=== PATIENT | female | born 1945 | race Caucasian/White ===

== ENCOUNTER 2018-04-29 13:23 | Outpatient (CLI) | payer MEDICARE, MEDICAID, SELFPAY ==
--- NOTE | 2018-04-29 08:54 | DI.RAD_ITS ---
SYMPTOM/DIAGNOSIS: RIGHT HIP PAIN PELVIS AND RIGHT HIP: The hip joint spaces are well maintained. There is minimal acetabular spurring bilaterally. IMPRESSION: Mild degenerative changes.
== END 2018-04-29 13:43 ==
PROVIDERS: PCP Family Medicine; Visit Provider Emergency Medicine
DX: M25.551 Pain in right hip (principal); M16.11 Unilateral primary osteoarthritis, right hip
CPT/HCPCS: 73502

== ENCOUNTER 2018-06-04 21:56 | Emergency (ER) | payer MEDICARE, MEDICAID, SELFPAY ==
[2018-06-04 22:07] VITALS: BP 153/61; PULSE 68; RESP 20; TEMP 36.7; O2SAT 98
--- NOTE | 2018-06-04 22:29 | ED.GENADUL_ITS ---
Discharge Plan Disposition Patient Disposition: HOME Condition: Stable Discharge Details Chief Complaint: Fever Clinical Impression: Sinusitis, URI (upper respiratory infection) Primary Care Provider: Terrie Burroughs ED Provider: Ameya Mcadams Home Meds and New Rx's Prescriptions: New doxycycline hyclate 100 mg capsule 100 mg PO BID 7 Days Qty: 14 RF: 0 benzonatate [Tessalon Perles] 100 mg capsule 100 mg PO QID PRN (Reason: cough) Qty: 20 RF: 0 Continued cholecalciferol (vitamin D3) 1,000 unit capsule 1,000 unit PO DAILY RF: 0 multivitamin [One Daily] 1 EACH tablet 1 ea PO DAILY RF: 0 acetaminophen [Tylenol] 325 MG tablet 325 mg PO PRN RF: 0 vitamin B complex [B-Complex] 1 EACH tablet 1 ea PO DAILY RF: 0 cholestyramine (with sugar) [Questran] 378 GM powder 1 tbs PO DAILY Qty: 1 RF: 3 Replens 6.7 GM gel 6.7 gm VG 3 times per week Qty: 1 RF: 3 ProAir HFA 8.5 GM HFA aerosol inhaler 1 - 2 puff Inhalation QID PRNQty: 1 RF: 4 amlodipine [Norvasc] 5 MG tablet 5 mg PO DAILY RF: 0 Remicade 100 MG recon soln 500 mg IV Q 8 WEEKS Qty: 1 RF: 0 cyanocobalamin (vitamin B-12) 1,000 MCG/1 ML solution 1,000 mcg IJ QMONTH Qty: 1 RF: 0 estradiol [Estrace] 42.5 GM cream 1 g VG twice a week Qty: 1 RF: 4 Dexilant 30 MG capsule,biphase delayed releas 60 mg PO every other day Qty: 60 RF: 0 Discharge Instructions Instructions: Sinusitis (ED), Upper Respiratory Infection (ED) Additional Instructions: During illness get plenty of rest and stay well-hydrated. Follow-up with your primary care provider as needed for reassessment if not improving or return to the emergency department for any new or significant worsening of your symptoms. Please take antibiotic for the full 7 days. Referrals: Terrie Burroughs MD [Primary Care Provider] - (As needed for reassessment/if not improving) Medical Decision Making Patient presenting the emergency department for cold-like symptoms for the past 10 days. Patient states that her had similar symptoms but over the past 24 hours she has developed a fever, worsening cough, worsening sinus pressure. Patient does state that she has had some associated sore throat and plugged ears . Patient states her biggest complaint is the sinus pressure and discomfort. Physical exam shows clear lung hobson, normal vital signs with no tachycardia, non-hypoxic, and no fever noted the emergency department. Patient does state that she has been intermittently taking acetaminophen as needed for discomfort. Patient does have both frontal and maxillary sinus tenderness to palpation and some anterior cervical lymphadenopathy that is mild. Otherwise physical exam is unremarkable. Patient is nontoxic and shows no acute signs of distress so I feel that outpatient treatment for sinusitis secondary to upper respiratory tract infection is warranted. Given patient's allergies patient placed up on doxycycline for 7 days along with Tessalon Perles for cough suppressant informed to follow-up with primary care for reassessment or return for any new or worsening symptoms. After discussion of diagnosis and plan of care patient has no further needs, questions, or concerns and states clear understanding to return to the emergency department for any worsening symptoms. HPI General Mode of arrival: ambulatory . Date/Time Provider Initiated Documentation: 06/04/18 22:09 . Limitations to Documentation: no limitations . Information obtained by: patient, RN notes reviewed and old records reviewed . History of Present Illness 72 year old F presents to the emergency department with the chief complaint of Cold symptoms, sinus pressure, described as moderate, with intensity rated at 6. Quality is described as aching, and is localized to the head (sinus ). Patient started experiencing this day(s) (10) and it has been constant. No relieving factors improve symptom(s), No exacerbating factors reported . Patient did receive the following treatments prior to arrival, other (Acetaminophen) Related Data Home Medications Medication Instructions Recorded Confirmed acetaminophen [Tylenol] 325 mg PO PRN 12/10/12 06/04/18 multivitamin [One Daily] 1 ea PO DAILY 12/10/12 06/04/18 vitamin B complex [B-Complex] 1 ea PO DAILY 12/10/12 06/04/18 cholestyramine (with sugar) 1 tbs PO DAILY #1 bottle 02/02/13 06/04/18 [Questran] Replens 6.7 gm VG 3 times per week #1 tube 12/23/14 06/04/18 ProAir HFA 1 - 2 puff INHALATION QID PRN #1 09/03/16 06/04/18 inhaler amlodipine [Norvasc] 5 mg PO DAILY 07/23/17 06/04/18 Remicade 500 mg IV Q 8 WEEKS #1 vial 11/14/17 06/04/18 cyanocobalamin (vitamin B-12) 1,000 mcg IJ QMONTH #1 vial 11/14/17 06/04/18 estradiol [Estrace] 1 g VG twice a week #1 tube 11/16/17 06/04/18 Dexilant 60 mg PO every other day #60 12/09/17 06/04/18 tab-cap cholecalciferol (vitamin D3) 1,000 1,000 unit PO DAILY 04/29/18 06/04/18 unit capsule benzonatate [Tessalon Perles] 100 mg PO QID PRN #20 cap 06/04/18 doxycycline hyclate 100 mg PO BID 7 Days #14 cap 06/04/18 Previous Rx's Medication Instructions Recorded Remicade 500 mg IV Q 8 WEEKS #1 vial 11/14/17 estradiol [Estrace] 1 g VG twice a week #1 tube 11/16/17 Dexilant 60 mg PO every other day #60 12/09/17 tab-cap benzonatate [Tessalon Perles] 100 mg PO QID PRN #20 cap 06/04/18 doxycycline hyclate 100 mg PO BID 7 Days #14 cap 06/04/18 Allergies Allergy/AdvReac Type Severity Reaction Status Date / Time latex Allergy Severe SKIN RASH; Verified 06/04/18 22:17 BLISTERS metronidazole [From Flagyl] Allergy Intermediate RASH Verified 06/04/18 22:17 esomeprazole Allergy Unknown UPPER BODY Verified 06/04/18 22:17 RASH Iodinated Contrast- Oral and Allergy Unknown Verified 06/04/18 22:17 IV Dye Sulfa (Sulfonamide Allergy Unknown Verified 06/04/18 22:17 Antibiotics) clindamycin AdvReac Severe GI UPSET Verified 06/04/18 22:17 azithromycin AdvReac Intermediate gi intol. Verified 06/04/18 22:17 diarrhea goas bloating cramps potassium clavulanate AdvReac Intermediate diarrhea Verified 06/04/18 22:17 [From Augmentin] omeprazole AdvReac Mild NAUSEA Verified 06/04/18 22:17 General Stated Complaint: Fever CAPRICE: 3 Review of Systems Constitutional Denies chills, Reports fatigue, Reports fever(s) and Reports malaise ENT Reports otalgia, Reports hoarseness, Reports nasal congestion, Reports nasal discharge, Reports post nasal drip, Reports sinus pain, Reports sinus pressure and Reports sore throat Cardiovascular Denies dyspnea Respiratory Denies change in phlegm color, Denies chest congestion, Reports cough, Denies excessive phlegm production and Denies dyspnea Gastrointestinal Denies abdominal pain, Denies diarrhea, Denies nausea and Denies vomiting Musculoskeletal Denies joint swelling Integumentary/Breasts Denies rash Endocrine Reports fatigue [facility] Medical History Osteoporosis (Acute) Osteoarthritis (Acute) Odynophagia (Acute 02/16/16) History of tobacco use (Acute) Herpes zoster (Resolved) Crohn's disease (Acute) Conductive hearing loss in right ear (Acute 02/16/16) Cervicalgia (Acute 02/16/16) Surgical History Hemicolectomy Ligation of fallopian tube MASTOIDECTOMY Tonsillectomy and adenoidectomy Family History Mother Diabetes Stroke Father Myocardial infarction Sister No problems noted. Sister Crohn's disease Sister No problems noted. Grandfather No problems noted. Grandfather No problems noted. Grandmother No problems noted. Grandmother No problems noted. Social History Smoking/Tobacco Use Status: Former Tobacco Use Exam Const General: cooperative, comfortable and no acute distress Orientation: alert, awake and oriented x3 HENMT Head: normal to inspection Ears: hearing grossly normal bilaterally and TM's normal bilaterally Face and sinus: sinus tenderness frontal and maxillary Mouth: oral mucosae normal, lip normal, tongue normal and moist mucous membranes Throat: posterior oropharynx normal, tonsils normal and uvula midline Eyes General: appearance normal, both eyes and all related structures Conjunctivae: conjunctivae normal Sclera: sclerae normal Neck Neck: normal visual inspection, full ROM, meningismus present, lymphadenopathy (Mild anterior cervical) and no JVD Resp Effort & Inspection: normal respiratory effort, able to speak in complete sentences, no audible wheezes, cough Quality of cough: dry and not labored Auscultation: clear to auscultation bilaterally Cardio Rate: regular rate and not tachycardic Rhythm: regular rhythm Heart Sounds: S1 normal and S2 normal Skin General skin exam: no rashes or lesions noted and dry skin Rashes: no rashes Neuro General: alert, awake, oriented x3 and gait normal Course Vital Signs Temperature 36.7 C 06/04/18 22:07 Pulse 68 06/04/18 22:07 Respiratory Rate 20 06/04/18 22:07 Blood Pressure 153/61 H 06/04/18 22:07 Pulse Oximetry 98 06/04/18 22:07 Temperature 36.7 C 06/04/18 22:07 Temperature Source Temporal Artery Scan 06/04/18 22:07 Pulse 68 06/04/18 22:07 Respiratory Rate 20 06/04/18 22:07 Respiratory Effort 06/04/18 22:07 Blood Pressure 153/61 H 06/04/18 22:07 Pulse Oximetry 98 06/04/18 22:07 Oxygen Delivery Method Room Air 06/04/18 22:07 Oxygen Flow Rate 0 06/04/18 22:07 Pain Level 6 06/04/18 22:07
[2018-06-04] MEDS: Benzonatate 100 MG CAP PO (22:32)
[2018-06-04] MEDS: Doxycycline Hyclate 100 MG CAP PO (22:32)
[2018-06-04 22:53] VITALS: BP 141/70; PULSE 63; RESP 18; O2SAT 97
== END 2018-06-04 22:51 | disposition home or self-care (01) ==
PROVIDERS: Emergency Provider Nurse Practitioner Family; PCP Family Medicine
DX: J01.90 Acute sinusitis, unspecified (principal); J06.9 Acute upper respiratory infection, unspecified
CPT/HCPCS: 99283

== ENCOUNTER 2018-07-03 00:50 | Outpatient (CLI) | payer MEDICARE, MEDICAID, SELFPAY ==
--- NOTE | 2018-07-03 15:00 | DI.MAMMO_ITS ---
SYMPTOM/DIAGNOSIS: SCREENING, Z12.31 MAMMOGRAMS: Mammograms were interpreted according to the usual protocol including computer analysis with CAD system, tomosynthesis and C view imaging. Comparison is made with prior examinations. Breast density, Category C. No suspicious masses or microcalcifications are seen. There is no definite evidence of malignancy. IMPRESSION: Negative mammogram. Routine screening is recommended. Category 1. MQSA ASSESSMENT OF FINDINGS: Negative. Category 1. Patient will receive a letter notifying them of these results. Bi-RADS category C. The breasts are heterogeneously dense, which may obscure small masses.
== END 2018-07-03 01:10 ==
PROVIDERS: PCP Family Medicine; Visit Provider Family Medicine
DX: Z12.31 Encounter for screening mammogram for malignant neoplasm of breast (principal)
CPT/HCPCS: 77063; 77067

== ENCOUNTER 2018-08-21 15:11 | Emergency (ER) | payer MEDICARE, MEDICAID, SELFPAY ==
[2018-08-21 15:19] VITALS: BP 162/72; PULSE 72; RESP 18; TEMP 37.1; O2SAT 97
--- NOTE | 2018-08-21 15:20 | W.ED.GENAD ---
Discharge Plan Disposition Patient Disposition: HOME Condition: Good Discharge Details Chief Complaint: Orthopedic Clinical Impression: Closed comminuted right humeral fracture, Contusion, buttock, Fall due to slipping on ice or snow, Syncope, vasovagal Primary Care Provider: Terrie Burroughs ED Provider: Ld Carvalho [place] Meds and New Rx's Prescriptions: New hydrocodone-acetaminophen 5-325 mg tablet 1 tab PO Q6H PRN (Reason: pain) Qty: 10 RF: 0 Continued cholecalciferol (vitamin D3) 1,000 unit capsule 1,000 unit PO DAILY RF: 0 Dexilant 30 mg capsule,biphase delayed releas 60 mg PO DAILY RF: 0 amlodipine [Norvasc] 5 mg tablet 5 mg PO DAILY Qty: 90 RF: 4 Shingrix (PF) 50 mcg/0.5 mL suspension for reconstitution 0.5 ml IM ONCE Qty: 1 RF: 1 multivitamin [One Daily] 1 EACH tablet 1 ea PO DAILY RF: 0 acetaminophen [Tylenol] 325 MG tablet 325 mg PO PRN RF: 0 vitamin B complex [B-Complex] 1 EACH tablet 1 ea PO DAILY RF: 0 albuterol sulfate [ProAir HFA] 8.5 GM HFA aerosol inhaler 1 - 2 puff Inhalation QID PRNQty: 1 RF: 4 Remicade 100 MG recon soln 500 mg IV Q 8 WEEKS Qty: 1 RF: 0 cyanocobalamin (vitamin B-12) 1,000 MCG/1 ML solution 1,000 mcg IJ QMONTH Qty: 1 RF: 0 estradiol [Estrace] 42.5 GM cream 1 g VG twice a week Qty: 1 RF: 4 cholestyramine (with sugar) [Questran] 4 gram powder See Patient Comments PO DAILY RF: 3 Discharge Instructions Additional Instructions: Please wear the sling until follow-up with orthopedics. No use of right upper extremity until follow-up. Ice on and off to help with pain and swelling. Keep your arm elevated. Hydrocodone/acetaminophen short-term for pain control. Return to emergency department for increased pain, difficulty breathing, numbness or weakness to the right upper extremity. Referrals: Earl Cuadra MD [ [facility] STAFF PHYSICIAN] - Medical Decision Making Patient presents to ED with right buttock and right upper extremity pain status post fall. Did not strike head or have loss of consciousness. She is not on blood thinners. She is normal neurologically. She has no midline spine tenderness. She does have tenderness to the proximal/mid humeral area on the right with decreased range of motion of the shoulder. She is neurovascularly intact distal. She has normal active range of motion of the right lower extremity. She is able to bear weight. We will place an IV and give pain medication. Will get x-ray of the right shoulder, right humerus, right hip and pelvis. X-rays are obtained. There is a comminuted impacted right humeral fracture at the surgical neck. Greater tuberosity is avulsed off. No dislocation. No fracture noted elsewhere. Pelvis and hip are negative. Patient had gone to the bathroom. Nursing had gone in to help her come back to the room. Patient became lightheaded and vagal. She did have a short syncope event until she was laid down on the stretcher. She was bradycardic at the time. Clearly had a vasovagal episode. Patient doing much better. We are giving her a little fluid. She had received morphine prior to x-ray. She received Vicodin post x-ray. Will place her arm in a sling. Patient has follow up with Dr. Cuadra next week for hip problems. Typically no acute surgical intervention required for this fracture, and can discuss management with Dr. Cuadra next week. Return to ED for increased pain/swelling, numbness, weakness, difficulty breathing. HPI General Mode of arrival: wheelchair. Date/Time Provider Initiated Documentation: 08/21/18 15:20. Limitations to Documentation: no limitations. Information obtained by: patient. HPI Narrative: Patient presents to ED with right upper extremity pain status post slip and fall on ice. She did also strike her right hip/buttock region and has some pain there. However, she is able to ambulate. She has exquisite pain in the right shoulder area. She did not strike her head or have loss of consciousness. She has no midline back pain. She has some right-sided low back buttock pain. She complains of a little bit of tingling in her distal right extremity. She denies chest pain or difficulty breathing. She is left-hand dominant. Related Data Home Medications Medication Instructions Recorded Confirmed acetaminophen [Tylenol] 325 mg PO PRN 12/10/12 08/21/18 multivitamin [One Daily] 1 ea PO DAILY 12/10/12 08/21/18 vitamin B complex [B-Complex] 1 ea PO DAILY 12/10/12 08/21/18 albuterol sulfate [ProAir HFA] 1 - 2 puff INHALATION QID PRN #1 09/03/16 08/21/18 inhaler Remicade 500 mg IV Q 8 WEEKS #1 vial 11/14/17 08/21/18 cyanocobalamin (vitamin B-12) 1,000 mcg IJ QMONTH #1 vial 11/14/17 08/21/18 estradiol [Estrace] 1 g VG twice a week #1 tube 11/16/17 08/21/18 cholecalciferol (vitamin D3) 1,000 1,000 unit PO DAILY 04/29/18 08/21/18 unit capsule amlodipine 5 mg tablet 5 mg PO DAILY #90 tab 07/01/18 08/21/18 cholestyramine (with sugar) 4 gram See Rx Instructions PO DAILY gm 07/01/18 08/21/18 oral powder dexlansoprazole 30 mg 60 mg PO DAILY tab-cap 07/01/18 08/21/18 capsule,biphase delayed release varicella-zoster glycoE [id number] 0.5 ml IM ONCE #1 each 07/01/18 07/04/18 adj(PF) 50 mcg/0.5 mL IM susp, kit hydrocodone-acetaminophen 1 tab PO Q6H PRN #10 tab 08/21/18 Previous Rx's Medication Instructions Recorded Remicade 500 mg IV Q 8 WEEKS #1 vial 11/14/17 estradiol [Estrace] 1 g VG twice a week #1 tube 11/16/17 amlodipine 5 mg tablet 5 mg PO DAILY #90 tab 07/01/18 varicella-zoster glycoE [id number] 0.5 ml IM ONCE #1 each 07/01/18 adj(PF) 50 mcg/0.5 mL IM susp, kit hydrocodone-acetaminophen 1 tab PO Q6H PRN #10 tab 08/21/18 Allergies Allergy/AdvReac Type Severity Reaction Status Date / Time latex Allergy Severe SKIN RASH; Verified 07/04/18 09:22 BLISTERS metronidazole [From Flagyl] Allergy Intermediate RASH Verified 07/04/18 09:22 esomeprazole Allergy Unknown UPPER BODY Verified 07/04/18 09:22 RASH Iodinated Contrast- Oral and Allergy Unknown Verified 07/04/18 09:22 IV Dye Sulfa (Sulfonamide Allergy Unknown Verified 07/04/18 09:22 Antibiotics) clindamycin AdvReac Severe GI UPSET Verified 07/04/18 09:22 azithromycin AdvReac Intermediate gi intol. Verified 07/04/18 09:22 diarrhea goas bloating cramps potassium clavulanate AdvReac Intermediate diarrhea Verified 07/04/18 09:22 [From Augmentin] omeprazole AdvReac Mild NAUSEA Verified 07/04/18 09:22 General CAPRICE: 3 Review of Systems Review of Systems As documented in HPI otherwise negative as below. Const: no fever, chills, weakness Resp: no cough, SOB, pleuritic pain CV: no CP, diaphoresis, edema, syncope GI: no abdominal pain, nausea, vomiting, diarrhea Neuro: no headache, numbness, focal weakness, confusion PFSH Medical History Osteoporosis (Chronic) Osteoarthritis (Chronic) Odynophagia (Chronic 02/16/16) History of tobacco use (Chronic) Herpes zoster (Resolved) Crohn's disease (Chronic) Conductive hearing loss in right ear (Chronic 02/16/16) Cervicalgia (Chronic 02/16/16) Surgical History Hemicolectomy (Inactive) Ligation of fallopian tube (Inactive) MASTOIDECTOMY (Inactive) Tonsillectomy and adenoidectomy (Inactive) Social History Smoking/Tobacco Use Status: Former Tobacco Use Alcohol Intake: current Alcohol Intake frequency: a few times a month Alcohol type: beer Drug use: Never Substance use type: unknown Housing: house Pets and animals: Yes Pets and animals: cat(s) Sexually active: No Do you think of yourself as: straight/heterosexual Current gender identity: female What is your relationship status?: How often do you talk on the phone with friends or family?: three or more times per week How often do you get together with friends or relatives?: twice per week How often do you attend confucianism or episcopalian services?: decline to answer Do you belong to any clubs or organized social groups?: no Panel score (0-1 are the most socially isolated patients): 1 What type of physical activity do you participate in: other Details: Stationary bike Duration: < 15 minutes/day Frequency: daily Oma/Jainism: Jain Special oma needs: No Do you feel safe at home: Yes Do you feel safe in your relationship?: Yes Exam Narrative Exam Narrative: 1. Const: WDWN female in distress from pain. 2. Eyes: No conjunctival injection or scleral icterus. 3. ENT: NC/AT. No facial swelling or tenderness. 4. Neck: Supple with normal ROM and no spinal tenderness. 5. CVS: +S1/S2, No murmurs or gallops. 6. RESP: Unlabored respiratory effort. Clear to auscultation bilaterally. No chest wall tenderness. 7. MSK: No deformity. Tender with decreased ROM in proximal RUE. Normal ROM of elbow. NVI distal with good pulse, sensation and strength. LUE normal. LLE normal. Pain in buttock area on right with active ROM but has normal passive ROM. No midline back tenderness. 8. Skin: Warm, Dry. No lacs or abrasions. 9. Neuro: A&O x3. photo graphics librarian II-XII grossly intact. Sensation grossly intact, no focal neurologic deficits.
--- NOTE | 2018-08-21 15:21 | DI.RAD_ITS ---
SYMPTOM/DIAGNOSIS: TRAUMA RIGHT HIP: Three views were obtained. Note is made of anastomotic sutures projected over the right lower quadrant. No fracture is seen. RIGHT SHOULDER: Three views were obtained and show mildly comminuted moderately displaced fracture of the proximal humerus. No additional fracture seen. No glenohumeral dislocation seen. RIGHT HUMERUS: Two views were obtained and again show previously described fracture of the proximal humerus. No additional fracture is seen.
--- NOTE | 2018-08-21 16:35 | NUR.NOTE ---
Nursing Note: Pt given ice pack to right humerus for comfort. awaiting rest of XR results. states that morphine took the edge off. Will cont. to monitor.
--- NOTE | 2018-08-21 16:54 | DI.VRAD_ITS ---
EXAM: XR Right Shoulder, Complete, 2 or More Views EXAM DATE/TIME: 08/21/2018 3:29 PM CLINICAL HISTORY: 73 years old, female; Pain; Shoulder; Right TECHNIQUE: Imaging protocol: XR Right shoulder, complete 2 or more views. COMPARISON: No relevant prior studies available. FINDINGS: Bones/joints: Impacted, comminuted fracture the right humerus surgical neck with extension into the greater tuberosity. No dislocation. Degenerative arthrosis of the acromioclavicular and glenohumeral joints. Soft tissues: Normal. IMPRESSION: Impacted fracture of the right humerus surgical neck with extension into the greater tuberosity. Dictated and Authenticated by: Zac Martinez MD. Ordering:BASILIO Jaffe MD
[2018-08-21] MEDS: HYDROcodone 5/Acetaminophen 325 TAB PO ×2 (16:55→17:55)
--- NOTE | 2018-08-21 16:56 | DI.VRAD_ITS ---
EXAM: XR Right Hip with Pelvis when Performed, 2 or 3 Views EXAM DATE/TIME: 08/21/2018 3:24 PM CLINICAL HISTORY: 73 years old, female; Pain; Hip pain; Right hip TECHNIQUE: Imaging protocol: XR Right hip with pelvis when performed, 2 or 3 views COMPARISON: CR XR hip RT complete AP pelvis 04/29/2018 9:04 AM FINDINGS: Bones/joints: Mild degenerative arthrosis of the hips. Mild osteopenia. No fracture or avascular necrosis. Surgical sutures within the right lower quadrant. Soft tissues: Unremarkable. IMPRESSION: No acute bone or joint abnormality. Dictated and Authenticated by: Zac Martinez MD. Ordering:BASILIO Jaffe MD
--- NOTE | 2018-08-21 16:57 | DI.VRAD_ITS ---
EXAM: XR Right Humerus, 2 or More Views EXAM DATE/TIME: 08/21/2018 4:10 PM CLINICAL HISTORY: 73 years old, female; Pain; Shoulder; Right TECHNIQUE: Imaging protocol: XR Right humerus, 2 or more views. COMPARISON: No relevant prior studies available. FINDINGS: Bones/joints: Impacted, nondisplaced fracture. The right humerus surgical neck with extension into the greater tuberosity. Degenerative arthrosis of the shoulder. Soft tissues: Normal. IMPRESSION: Impacted, nondisplaced fracture. The right humerus surgical neck with extension into the greater tuberosity. Dictated and Authenticated by: Zac Martinez MD. Ordering:BASILIO Jaffe MD
[2018-08-21 17:16] VITALS: PULSE 68; RESP 13; O2SAT 99
[2018-08-21] MEDS: Normal Saline 500 ML IV (17:17)
[2018-08-21 17:20] VITALS: PULSE 67; RESP 20; O2SAT 99
[2018-08-21 17:30] VITALS: PULSE 67; RESP 13; O2SAT 99
[2018-08-21 17:31] VITALS: BP 129/54; PULSE 69; PULSE 70; RESP 14; O2SAT 97
[2018-08-21 17:40] VITALS: PULSE 75; RESP 13; O2SAT 97
== END 2018-08-21 18:03 | disposition home or self-care (01) ==
PROVIDERS: Emergency Provider Emergency Medicine; PCP Family Medicine
DX: S42.291A Other displaced fracture of upper end of right humerus, initial encounter for closed fracture (principal); M25.511 Pain in right shoulder; S30.0XXA Contusion of lower back and pelvis, initial encounter; R55 Syncope and collapse; W00.0XXA Fall on same level due to ice and snow, initial encounter
CPT/HCPCS: 96360; 99284; 73030; 73060; 73502; J2270; L3650

== ENCOUNTER → 2018-08-27 08:39 | Outpatient (BNVA) | payer MEDICARE, MEDICAID, SELFPAY | PROVIDERS: PCP Family Medicine; Referring Provider Family Medicine; Visit Provider Orthopaedic Surgery | DX: S42.201A Unspecified fracture of upper end of right humerus, initial encounter for closed fracture (principal); W00.0XXA Fall on same level due to ice and snow, initial encounter; M70.61 Trochanteric bursitis, right hip | CPT/HCPCS: 20610; 99202; 99213; J1040 ==

== ENCOUNTER 2018-09-10 09:38 | Outpatient (CLI) | payer MEDICARE, MEDICAID, SELFPAY ==
--- NOTE | 2018-09-10 09:28 | DI.RAD_ITS ---
SYMPTOMS/DIAGNOSIS: RT FRACTURE HUMERUS RIGHT SHOULDER: When compared with previous images, again noted is the fracture of the surgical neck and greater tuberosity with no interval change in alignment when compared with the previous images of 08/21/18.
== END 2018-09-10 09:58 ==
PROVIDERS: PCP Family Medicine; Referring Provider Family Medicine; Visit Provider Orthopaedic Surgery
DX: S42.201A Unspecified fracture of upper end of right humerus, initial encounter for closed fracture; X58.XXXA Exposure to other specified factors, initial encounter
CPT/HCPCS: 99213; 73030

== ENCOUNTER 2018-10-08 09:36 | Outpatient (CLI) | payer MEDICARE, MEDICAID, SELFPAY ==
--- NOTE | 2018-10-08 09:29 | DI.RAD_ITS ---
SYMPTOM/DIAGNOSIS: F/U FX RIGHT SHOULDER: Comparison is made with 09/10/18. There has been no change in the alignment of the previously noted humeral head fracture which shows some increased healing when compared with the previous exam. No new abnormalities are seen.
== END 2018-10-08 09:56 ==
PROVIDERS: PCP Family Medicine; Referring Provider Family Medicine; Visit Provider Orthopaedic Surgery
DX: S42.201A Unspecified fracture of upper end of right humerus, initial encounter for closed fracture (principal); X58.XXXA Exposure to other specified factors, initial encounter
CPT/HCPCS: 99213; 73030

== ENCOUNTER 2018-10-21 10:53 | Outpatient (CLI) | payer MEDICARE, MEDICAID, SELFPAY ==
--- NOTE | 2018-10-21 10:50 | DI.RAD_ITS ---
SYMPTOMS/DIAGNOSIS: FOLLOW UP FRACTURE RIGHT SHOULDER: Two views were obtained. Previously described proximal humeral fracture again noted with no gross interval change in alignment in comparison with examination of 10/08/18.
== END 2018-10-21 11:13 ==
PROVIDERS: PCP Family Medicine; Referring Provider Family Medicine; Visit Provider Orthopaedic Surgery
DX: S42.291D Other displaced fracture of upper end of right humerus, subsequent encounter for fracture with routine healing (principal); M25.551 Pain in right hip; M70.61 Trochanteric bursitis, right hip; X58.XXXD Exposure to other specified factors, subsequent encounter
CPT/HCPCS: 20610; 99211; 99213; 73030; J1040

== ENCOUNTER 2018-12-16 14:24 | Outpatient (REF) | payer MEDICARE, MEDICAID, SELFPAY | END 2018-12-16 14:44 | LOC: LBN 14:24 | PROVIDERS: PCP Family Medicine; Visit Provider Nurse Practitioner | DX: L02.414 Cutaneous abscess of left upper limb (principal) | CPT/HCPCS: 87070; 87205 ==

== ENCOUNTER → 2018-12-23 10:13 | Outpatient (BNVA) | payer MEDICARE, MEDICAID, SELFPAY | PROVIDERS: PCP Family Medicine; Referring Provider Family Medicine; Visit Provider Orthopaedic Surgery | DX: M70.61 Trochanteric bursitis, right hip (principal); Z98.890 Other specified postprocedural states; Z87.81 Personal history of (healed) traumatic fracture | CPT/HCPCS: 99213 ==

== ENCOUNTER 2018-12-24 18:43 | Emergency (ER) | payer MEDICARE, MEDICAID, SELFPAY ==
[2018-12-24 18:48] VITALS: BP 140/51; PULSE 71; RESP 18; TEMP 36.6; O2SAT 99
--- NOTE | 2018-12-24 19:05 | ED.GENADUL_ITS ---
Discharge Plan Disposition Patient Disposition: HOME Condition: Improving Discharge Details Chief Complaint: GenMedical Clinical Impression: Acute frontal sinusitis Primary Care Provider: Terrie Burroughs ED Provider: Earl Love Home Meds and New Rx's Prescriptions: New amoxicillin 500 mg capsule 500 mg PO TID 10 Days Qty: 30 RF: 0 guaifenesin [Mucinex] 600 mg tablet extended release 12hr 600 mg PO Q12H PRNQty: 10 RF: 0 Continued cholecalciferol (vitamin D3) 1,000 unit capsule 1,000 unit PO DAILY RF: 0 prednisone 5 mg tablet 5 mg PO DAILY Qty: 30 RF: 0 Dexilant 30 mg capsule,biphase delayed releas 60 mg PO DAILY RF: 0 amlodipine [Norvasc] 5 mg tablet 5 mg PO DAILY Qty: 90 RF: 4 Shingrix (PF) 50 mcg/0.5 mL suspension for reconstitution 0.5 ml IM ONCE Qty: 1 RF: 1 multivitamin [One Daily] 1 EACH tablet 1 ea PO DAILY RF: 0 acetaminophen [Tylenol] 325 MG tablet 325 mg PO PRN RF: 0 vitamin B complex [B-Complex] 1 EACH tablet 1 ea PO DAILY RF: 0 albuterol sulfate [ProAir HFA] 8.5 GM HFA aerosol inhaler 1 - 2 puff Inhalation QID PRNQty: 1 RF: 4 Remicade 100 MG recon soln 500 mg IV Q 8 WEEKS Qty: 1 RF: 0 cyanocobalamin (vitamin B-12) 1,000 MCG/1 ML solution 1,000 mcg IJ QMONTH Qty: 1 RF: 0 estradiol [Estrace] 42.5 GM cream 1 g VG twice a week Qty: 1 RF: 4 cholestyramine (with sugar) [Questran] 4 gram powder See Rx Instructions PO DAILY RF: 3 Discharge Instructions Instructions: Sinusitis (ED) Additional Instructions: Please continue all of your regular medications. Please take an [id number] probiotic once daily while on the antibiotics. Return if you develop worsening discomfort or any other acute concern. Medical Decision Making 73-year-old female presents from home with approximately 1+ week of postnasal drip with dry cough, bilateral sinus pain and pressure. She states she has had foul tasting sputum. She is afebrile, pleasant, well-appearing. Bilateral sinus tenderness to percussion. I do feel that she has a presentation consistent with acute sinusitis. We discussed this may not be infectious, but given her history of similar in the past, the fact that she is mildly immunosuppressed, we will proceed with treatment with a course of amoxicillin. I will prescribe her Mucinex as well. She understands homecare as well as return and follow-up precautions HPI General Mode of arrival: ambulatory . Date/Time Provider Initiated Documentation: 12/24/18 18:44 . Limitations to Documentation: no limitations . Information obtained by: patient . History of Present Illness 73 year old F presents to the emergency department with the chief complaint of Sinus pressure and postnasal drip for greater than 5 to 7 days, described as moderate, Quality is described as constant, and is localized to the face. Patient reports no radiation. Patient started experiencing this day(s) and it has been constant. No relieving factors improve symptom(s), No exacerbating f actors reported . Patient notes other (Subjective fever and chills. She has had a cough. No shortness of breath). Patient did receive the following treatments prior to arrival, none Related Data Home Medications Medication Instructions Recorded Confirmed acetaminophen [Tylenol] 325 mg PO PRN 12/10/12 12/23/18 multivitamin [One Daily] 1 ea PO DAILY 12/10/12 12/24/18 vitamin B complex [B-Complex] 1 ea PO DAILY 12/10/12 12/24/18 albuterol sulfate [ProAir HFA] 1 - 2 puff INHALATION QID PRN #1 09/03/16 12/23/18 inhaler Remicade 500 mg IV Q 8 WEEKS #1 vial 11/14/17 12/23/18 cyanocobalamin (vitamin B-12) 1,000 mcg IJ QMONTH #1 vial 11/14/17 12/24/18 estradiol [Estrace] 1 g VG twice a week #1 tube 11/16/17 12/24/18 cholecalciferol (vitamin D3) 1,000 1,000 unit PO DAILY 04/29/18 12/24/18 unit capsule amlodipine 5 mg tablet 5 mg PO DAILY #90 tab 07/01/18 12/24/18 cholestyramine (with sugar) 4 gram See Rx Instructions PO DAILY gm 07/01/18 12/24/18 oral powder dexlansoprazole 30 mg 60 mg PO DAILY tab-cap 07/01/18 12/24/18 capsule,biphase delayed release varicella-zoster [id number] (PF) 50 0.5 ml IM ONCE #1 each 07/01/18 12/24/18 mcg/0.5 mL IM susp, kit prednisone 5 mg tablet 5 mg PO DAILY #30 tab 12/23/18 12/24/18 amoxicillin 500 mg PO TID 10 Days #30 cap 12/24/18 guaifenesin [Mucinex] 600 mg PO Q12H PRN #10 tab 12/24/18 Previous Rx's Medication Instructions Recorded Remicade 500 mg IV Q 8 WEEKS #1 vial 11/14/17 estradiol [Estrace] 1 g VG twice a week #1 tube 11/16/17 amlodipine 5 mg tablet 5 mg PO DAILY #90 tab 07/01/18 varicella-zoster [id number] (PF) 50 0.5 ml IM ONCE #1 each 07/01/18 mcg/0.5 mL IM susp, kit prednisone 5 mg tablet 5 mg PO DAILY #30 tab 12/23/18 amoxicillin 500 mg PO TID 10 Days #30 cap 12/24/18 guaifenesin [Mucinex] 600 mg PO Q12H PRN #10 tab 12/24/18 Allergies Allergy/AdvReac Type Severity Reaction Status Date / Time latex Allergy Severe SKIN RASH; Verified 12/24/18 18:55 BLISTERS metronidazole [From Flagyl] Allergy Intermediate RASH Verified 12/24/18 18:55 esomeprazole Allergy Unknown UPPER BODY Verified 12/24/18 18:55 RASH Iodinated Contrast Media Allergy Unknown Verified 12/24/18 18:55 [Iodinated Contrast- Oral and IV Dye] Sulfa (Sulfonamide Allergy Unknown Verified 12/24/18 18:55 Antibiotics) clindamycin AdvReac Severe GI UPSET Verified 12/24/18 18:55 azithromycin AdvReac Intermediate gi intol. Verified 12/24/18 18:55 diarrhea goas bloating cramps potassium clavulanate AdvReac Intermediate diarrhea Verified 12/24/18 18:55 [From Augmentin] omeprazole AdvReac Mild NAUSEA Verified 12/24/18 18:55 General Stated Complaint: GenMedical CAPRICE: 3 Review of Systems Review of Systems 6 systems reviewed and otherwise negative. 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 Sister Crohn's disease Sister No problems noted. Maternal Grandfather No problems noted. Paternal Grandfather No problems noted. Maternal Grandmother No problems noted. Paternal Grandmother No problems noted. Daughter No problems noted. Daughter No problems noted. Daughter No problems noted. Social History Smoking/Tobacco Use Status: Former Tobacco Use Alcohol Intake: current Alcohol Intake frequency: a few times a month Alcohol type: beer Drug use: Never Substance use type: does not use Housing: house Pets and animals: Yes Pets and animals: cat(s) Sexually active: No Do you think of yourself as: straight/heterosexual Current gender identity: female What is your relationship status?: How often do you talk on the phone with friends or family?: three or more times per week How often do you get together with friends or relatives?: twice per week How often do you attend mosque or buddhist services?: decline to answer Do you belong to any clubs or organized social groups?: no Panel score (0-1 are the most socially isolated patients): 1 What type of physical activity do you participate in: other Details: Stationary bike Duration: < 15 minutes/day Frequency: daily Oma/Evangelical: Mandaen Special oma needs: No Do you feel safe at home: Yes Do you feel safe in your relationship?: Yes Exam Narrative Exam Narrative: GEN: awake, alert, oriented 3. Pleasant, well groomed, interactive. HEAD: Normocephalic, atraumatic ENT: Mucous membranes moist, oropharynx unremarkable, External ear exam unremarkable, tympanic membranes clear and pearlescent bilaterally. Frontal and maxillary sinus tenderness to percussion EYES: PERRL, EOMI NECK: Full ROM, no NICHOLAS, no menigismus CHEST/RESP: Nontender, clear to auscultation bilateral, no wheeze/rhonchi/rales CARDIOVASCULAR: RRR, no murmur, rub zack. 2+ Rad pulse bilateral ABDOMEN: Soft, nontender, no mass. +Bowel sounds EXT: Full ROM, no edema, no rash Neuro: Grossly normal neurologic exam, conversant, interactive. Psych: Speech fluent, thoughts congruent, affect normal Course Vital Signs Temperature 36.6 C 12/24/18 18:48 Pulse 71 12/24/18 18:48 Respiratory Rate 18 12/24/18 18:48 Blood Pressure 140/51 L 12/24/18 18:48 Pulse Oximetry 99 12/24/18 18:48 Temperature 36.6 C 12/24/18 18:48 Temperature Source Skin 12/24/18 18:48 Pulse 71 12/24/18 18:48 Respiratory Rate 18 12/24/18 18:48 Respiratory Effort Non-Labored 12/24/18 18:53 Blood Pressure 140/51 L 12/24/18 18:48 Blood Pressure Position Sitting 12/24/18 18:48 Pulse Oximetry 99 12/24/18 18:48 Oxygen Delivery Method Room Air 12/24/18 18:48 Oxygen Flow Rate 0 12/24/18 18:48 Pain Level 4 12/24/18 18:48
[2018-12-24] MEDS: Amoxicillin 500 MG CAP PO (19:07)
== END 2018-12-24 19:13 | disposition home or self-care (01) ==
LOC: ER 19:14
PROVIDERS: Emergency Provider Emergency Medicine; PCP Family Medicine
DX: J01.10 Acute frontal sinusitis, unspecified (principal); R05 Cough; Z87.891 Personal history of nicotine dependence
CPT/HCPCS: 99283

== ENCOUNTER 2019-04-07 01:38 | Outpatient (RCR) | payer MEDICARE, MEDICAID, SELFPAY ==
[2019-03-24] MEDS: Acetaminophen 325 MG TAB 650 MG PO (07:30)
[2019-03-24] MEDS: Normal Saline Flush 10 ML SYR IVP (07:49)
[2019-03-24] MEDS: Loratidine 10 MG TAB PO (07:49)
[2019-03-24] MEDS: VEDOLIZUMAB 300 MG in Normal Saline 250 ML 500 MG IVPB (08:02)
[2019-04-07] MEDS: Loratidine 10 MG TAB PO (07:20)
[2019-04-07] MEDS: Acetaminophen 325 MG TAB 650 MG PO (07:20)
[2019-04-07] MEDS: Normal Saline Flush 10 ML SYR IVP ×2 (07:21→07:49)
[2019-04-07 07:47] LABS: Abs Immature Grans 0.02 k/cumm (0.0-0.09); Absolute Basophil Count 0.03 k/cumm (0.0-0.2); Absolute Eosinophil Count 0.26 k/cumm (0.0-0.7); Absolute Lymphocyte Count 2.49 k/cumm (1.2-3.4); Absolute Monocyte Count 0.92 k/cumm (0.11-0.7); Absolute Neutrophil Count 4.33 k/cumm (1.2-6.7); Basophils % 0.4; Eosinophils % 3.2; HCT 33.4 % (36.0-46.0); HGB 11.1 g/dL (12.0-15.5); Immature Grans % 0.2; Lymphocytes % 30.9; Mean Corp. HGB Concentration 33.2 g/dL (32.0-36.0); Mean Corpuscular Hemoglobin 29.2 pg (27.0-33.0); Mean Corpuscular Volume 87.9 fL (80-95); Mean Platelet Volume 11.5 fL (8.0-11.0); Monocytes % 11.4; Neutrophils % 53.9; Platelet Count 289 x1000/uL (130-400); RBC Distribution Width 15.2 % (11.7-14.6); White Blood Cell Count 8.05 k/cumm (4.4-10.8)
[2019-04-07] MEDS: VEDOLIZUMAB 300 MG in Normal Saline 250 ML 500 MG IVPB (07:49)
[2019-04-07 08:16] LABS: ALT 33 U/L (14-59); AST 19 U/L (15-37); Albumin 3.9 g/dL (3.4-5.0); Alkaline Phosphatase 70 U/L (46-116); Bilirubin, Direct 0.08 mg/dL (0.00-0.20); Bilirubin, Total 0.3 mg/dL (0.2-1.0); Total Protein 7.8 g/dL (6.4-8.2)
[2019-04-07 08:17] LABS: C-Reactive Protein < 0.05 mg/dL (0.0-0.3)
== END 2019-04-18 23:59 | disposition home or self-care (01) ==
LOC: INF 01:38
PROVIDERS: Internal Medicine Gastroenterology; PCP Family Medicine; Visit Provider Internal Medicine
DX: K50.90 Crohn's disease, unspecified, without complications (principal)
CPT/HCPCS: 36415; 80076; 96365; 85025; 86140; J3380

== ENCOUNTER → 2019-05-05 02:49 | Outpatient (RCR) | payer MEDICARE, MEDICAID, SELFPAY ==
[2019-04-21 07:33] LABS: Abs Immature Grans 0.02 k/cumm (0.0-0.09); Absolute Basophil Count 0.03 k/cumm (0.0-0.2); Absolute Lymphocyte Count 2.26 k/cumm (1.2-3.4); Absolute Monocyte Count 0.85 k/cumm (0.11-0.7); Absolute Neutrophil Count 5.93 k/cumm (1.2-6.7); Basophils % 0.3; Eosinophils % 2.2; HGB 11.7 g/dL (12.0-15.5); Immature Grans % 0.2; Lymphocytes % 24.3; Mean Corp. HGB Concentration 33.4 g/dL (32.0-36.0); Mean Corpuscular Hemoglobin 29.3 pg (27.0-33.0); Mean Corpuscular Volume 87.7 fL (80-95); Mean Platelet Volume 11.3 fL (8.0-11.0); Monocytes % 9.1; Neutrophils % 63.9; Platelet Count 303 x1000/uL (130-400); RBC 3.99 m/cumm (4.00-5.20); White Blood Cell Count 9.29 k/cumm (4.4-10.8)
[2019-04-21 07:53] LABS: ALT 29 U/L (14-59); AST 19 U/L (15-37); Alkaline Phosphatase 74 U/L (46-116); Bilirubin, Direct 0.09 mg/dL (0.00-0.20); Bilirubin, Total 0.4 mg/dL (0.2-1.0); Total Protein 8.2 g/dL (6.4-8.2)
[2019-04-21 08:21] LABS: C-Reactive Protein < 0.05 mg/dL (0.0-0.3)
[2019-05-05 07:46] LABS: Abs Immature Grans 0.01 k/cumm (0.0-0.09); Absolute Basophil Count 0.03 k/cumm (0.0-0.2); Absolute Eosinophil Count 0.29 k/cumm (0.0-0.7); Absolute Lymphocyte Count 2.52 k/cumm (1.2-3.4); Absolute Monocyte Count 0.77 k/cumm (0.11-0.7); Absolute Neutrophil Count 4.24 k/cumm (1.2-6.7); Basophils % 0.4; Eosinophils % 3.7; HCT 33.2 % (36.0-46.0); Immature Grans % 0.1; Lymphocytes % 32.1; Mean Corp. HGB Concentration 33.1 g/dL (32.0-36.0); Mean Corpuscular Hemoglobin 29.3 pg (27.0-33.0); Mean Corpuscular Volume 88.3 fL (80-95); Mean Platelet Volume 11.4 fL (8.0-11.0); Monocytes % 9.8; Neutrophils % 53.9; Platelet Count 279 x1000/uL (130-400); RBC 3.76 m/cumm (4.00-5.20); RBC Distribution Width 14.9 % (11.7-14.6); White Blood Cell Count 7.86 k/cumm (4.4-10.8)
[2019-05-05 07:54] LABS: ALT 27 U/L (14-59); AST 21 U/L (15-37); Albumin 3.9 g/dL (3.4-5.0); Alkaline Phosphatase 69 U/L (46-116); Bilirubin, Total 0.5 mg/dL (0.2-1.0); Glucose 98 mg/dL (74-106); Total Protein 7.9 g/dL (6.4-8.2)
[2019-05-05 07:55] LABS: C-Reactive Protein < 0.05 mg/dL (0.0-0.3)
[2019-05-05] MEDS: VEDOLIZUMAB 300 MG in Normal Saline 250 ML 500 MG IVPB (07:58)
[2019-05-05] MEDS: Normal Saline Flush 10 ML SYR IVP (08:03)
[2019-05-26 07:39] LABS: Abs Immature Grans 0.01 k/cumm (0.0-0.09); Absolute Basophil Count 0.03 k/cumm (0.0-0.2); Absolute Eosinophil Count 0.25 k/cumm (0.0-0.7); Absolute Lymphocyte Count 2.26 k/cumm (1.2-3.4); Absolute Monocyte Count 0.88 k/cumm (0.11-0.7); Absolute Neutrophil Count 4.12 k/cumm (1.2-6.7); Basophils % 0.4; Eosinophils % 3.3; HCT 33.8 % (36.0-46.0); HGB 11.2 g/dL (12.0-15.5); Immature Grans % 0.1 %; Lymphocytes % 29.9; Mean Corp. HGB Concentration 33.1 g/dL (32.0-36.0); Mean Corpuscular Hemoglobin 29.2 pg (27.0-33.0); Mean Platelet Volume 11.6 fL (8.0-11.0); Monocytes % 11.7; Neutrophils % 54.6; Platelet Count 300 x1000/uL (130-400); RBC 3.84 m/cumm (4.00-5.20); RBC Distribution Width 15.1 % (11.7-14.6); White Blood Cell Count 7.55 k/cumm (4.4-10.8)
[2019-05-26 07:53] LABS: ALT 28 U/L (14-59); AST 12 U/L (15-37); Albumin 3.7 g/dL (3.4-5.0); Alkaline Phosphatase 70 U/L (46-116); Bilirubin, Total 0.5 mg/dL (0.2-1.0); Total Protein 7.7 g/dL (6.4-8.2)
[2019-05-26 14:41] LABS: Bilirubin, Direct 0.09 mg/dL (0.00-0.20)
[2019-05-26 14:56] LABS: C-Reactive Protein < 0.05 mg/dL (0.0-0.3)
== END | disposition other institution (70) ==
LOC: INF 04-21 01:34
PROVIDERS: Internal Medicine Gastroenterology; PCP Family Medicine; Visit Provider Internal Medicine
DX: K50.019 Crohn's disease of small intestine with unspecified complications (principal); Z13.1 Encounter for screening for diabetes mellitus
CPT/HCPCS: 36415; 80076; 82947; 96365; 85025; 86140; J3380

== ENCOUNTER 2019-05-26 12:47 | Outpatient (RCR) | payer MEDICARE, MEDICAID, SELFPAY | END 2019-06-19 23:59 | disposition home or self-care (01) | LOC: INF 12:47 | PROVIDERS: PCP Family Medicine; Visit Provider Internal Medicine | DX: K50.019 Crohn's disease of small intestine with unspecified complications (principal) | CPT/HCPCS: 36415; 80076; 85025; 86140 ==

== ENCOUNTER 2019-06-24 09:59 | Outpatient (REF) | payer MEDICARE, MEDICAID, SELFPAY ==
[2019-06-24 12:24] LABS: Bilirubin Negative (Negative); Blood Trace-lysed (Negative); Clarity Clear (Clear); Glucose Negative (Negative); Ketones Negative (Negative); Leukocyte Esterase Negative (Negative); Nitrite Negative (Negative); Specific Gravity <= 1.005 (1.005-1.025); Urobilinogen 0.2 EU/dL (Up TO 0.2); pH 5.5 (5-8)
[2019-06-24 12:47] LABS: Bacteria Negative HPF (Negative); C & S Indicated? No; Casts Negative LPF (Negative); Crystals Negative HPF (Negative); Epithelial Cells Negative HPF (Negative); Mucus Negative (Negative); Other Cells Negative (Negative); RBC 0-2 HPF (0-2); WBC Negative HPF (0-5)
== END 2019-06-24 10:19 ==
LOC: LBN 09:59
PROVIDERS: PCP Family Medicine; Visit Provider Family Medicine
DX: R31.9 Hematuria, unspecified (principal)
CPT/HCPCS: 81003; 81015

== ENCOUNTER 2019-06-30 01:43 | Outpatient (RCR) | payer MEDICARE, MEDICAID, SELFPAY ==
[2019-06-30] MEDS: VEDOLIZUMAB 300 MG in Normal Saline 250 ML 500 MG IVPB (08:18)
[2019-06-30] MEDS: Acetaminophen 325 MG TAB 650 MG PO (08:18)
[2019-06-30] MEDS: Loratidine 10 MG TAB PO (08:18)
[2019-06-30] MEDS: Normal Saline Flush 10 ML SYR IVP (09:34)
[2019-07-09 11:33] LABS: Vedolizumab Ab <9.8 ng/mL (<9.8); Vedolizumab QN, S 26.6 mcg/mL
== END 2019-07-18 23:59 | disposition home or self-care (01) ==
LOC: INF 01:43
PROVIDERS: Nurse Practitioner Adult Health; PCP Family Medicine; Visit Provider Internal Medicine
DX: K50.019 Crohn's disease of small intestine with unspecified complications (principal)
CPT/HCPCS: 36415; 82397; 96365; J3380

== ENCOUNTER 2019-07-28 01:18 | Outpatient (RCR) | payer MEDICARE, MEDICAID, SELFPAY ==
[2019-07-28 07:34] LABS: Abs Immature Grans 0.02 k/cumm (0.0-0.09); Absolute Basophil Count 0.04 k/cumm (0.0-0.2); Absolute Eosinophil Count 0.47 k/cumm (0.0-0.7); Absolute Lymphocyte Count 2.38 k/cumm (1.2-3.4); Absolute Monocyte Count 0.86 k/cumm (0.11-0.7); Absolute Neutrophil Count 4.92 k/cumm (1.2-6.7); Basophils % 0.5; Eosinophils % 5.4; HCT 35.5 % (36.0-46.0); HGB 11.8 g/dL (12.0-15.5); Immature Grans % 0.2 %; Lymphocytes % 27.4; Mean Corp. HGB Concentration 33.2 g/dL (32.0-36.0); Mean Corpuscular Hemoglobin 28.9 pg (27.0-33.0); Mean Platelet Volume 11.2 fL (8.0-11.0); Monocytes % 9.9; Neutrophils % 56.6; Platelet Count 307 x1000/uL (130-400); RBC 4.08 m/cumm (4.00-5.20); RBC Distribution Width 14.7 % (11.7-14.6); White Blood Cell Count 8.69 k/cumm (4.4-10.8)
[2019-07-28 08:23] LABS: ALT 34 U/L (14-59); AST 20 U/L (15-37); Albumin 3.9 g/dL (3.4-5.0); Alkaline Phosphatase 89 U/L (46-116); Bilirubin, Total 0.3 mg/dL (0.2-1.0)
[2019-07-28 08:33] LABS: Bilirubin, Direct 0.09 mg/dL (0.00-0.20); C-Reactive Protein 0.08 mg/dL (0.0-0.3)
== END 2019-08-18 23:59 | disposition home or self-care (01) ==
LOC: INF 01:18
PROVIDERS: PCP Family Medicine; Visit Provider Nurse Practitioner Adult Health
DX: K50.019 Crohn's disease of small intestine with unspecified complications (principal)
CPT/HCPCS: 36415; 80076; 85025; 86140

== ENCOUNTER 2019-10-05 02:40 | Outpatient (CLI) | payer MEDICARE, MEDICAID, SELFPAY ==
--- NOTE | 2019-10-29 11:45 | W.ZIOMONITOR ---
Date of service: 10/29/19 Time of Service: 11:45 ZIO Patch Conference Specialist Note: This is a 2-week ZIO patch ordered for the indication of palpitations. ?Patient was in normal sinus rhythm for the majority of the recording. Average heart rate was 70 bpm. ?There were 32 episodes of supraventricular tachycardia with the longest lasting 10 beats at a rate of 112 bpm. ?There were rare isolated supraventricular ectopic beats as well as rare episodes of ventricular bigeminy and trigeminy. ?There were no patient triggered events. ?There are no episodes of ventricular tachycardia no pauses greater than 3 seconds and no evidence of high degree heart block.
== END 2019-10-05 03:00 ==
PROVIDERS: PCP Family Medicine; Visit Provider Family Medicine
DX: R00.2 Palpitations (principal)
CPT/HCPCS: 0296T

== ENCOUNTER 2019-10-26 01:22 | Outpatient (CLI) | payer MEDICARE, MEDICAID, SELFPAY ==
--- NOTE | 2019-10-26 08:00 | DI.MAMMO_ITS ---
EXAM: MG MAMMO SCREENING CLINICAL HISTORY: screening,z12.39 TECHNIQUE: Bilateral full field digital CC and MLO mammographic images were obtained with 3D tomosyn thesis and utilizing computer aided detection (CAD). COMPARISON: Available for comparison. FINDINGS: Masses/Architectural Distortion: None seen. Microcalcifications: No suspicious pleomorphic-type are seen. Skin Thickening/Nipple Retraction: None. IMPRESSION: 1. No significant interval change with no specific features of malignancy noted. 2. Unless there is more urgent need, screening mammography is recommended, as per [employer] guidelines. BI-RADS Category 1 - Negative Breast Density - Category C - Heterogeneously dense The mammogram demonstrates the patient's breast tissue is dense. Dense breast tissue is very common a nd is not abnormal but dense breast tissue can make it harder to find cancer on a mammogram. Also, de nse breast tissue may increase their breast cancer risk. This information about the result of the [facility] mogram report was provided to the patient to raise their awareness. Use this report when you speak wi th the patient about their risks for breast cancer, which includes their family history. At that time , you may recommend for more screening tests (Ultrasound or MRI) as they might be useful based on the ir risk. A negative radiographic report should not delay biopsy if a dominant or clinically suspicious mass is present. Up to ten percent of cancers are not identified on mammography. A negative report may reinforce clinical impression. Adenosis and dense breasts may obscure an underlying neoplasm. False positive reports average 6 to 10%. Patient will receive a letter notifying them of these results.
== END 2019-10-26 01:42 ==
PROVIDERS: PCP Family Medicine; Visit Provider Family Medicine
DX: Z12.31 Encounter for screening mammogram for malignant neoplasm of breast (principal)
CPT/HCPCS: 77063; 77067

== ENCOUNTER → 2019-10-27 10:03 | Outpatient (BNVA) | payer MEDICARE, MEDICAID, SELFPAY | PROVIDERS: PCP Family Medicine; Referring Provider Family Medicine; Visit Provider Orthopaedic Surgery | DX: M70.61 Trochanteric bursitis, right hip (principal) | CPT/HCPCS: 20610; 99213; 99214; J1040 ==

== ENCOUNTER 2019-10-29 11:45 | Outpatient (CLI) | payer MEDICARE, MEDICAID, SELFPAY | END 2019-10-29 12:05 | PROVIDERS: PCP Family Medicine; Visit Provider Internal Medicine Cardiovascular Disease | DX: R00.2 Palpitations (principal); I47.1 Supraventricular tachycardia; I49.3 Ventricular premature depolarization | CPT/HCPCS: 0298T ==

== ENCOUNTER 2019-11-06 09:24 | Outpatient (CLI) | payer MEDICARE, MEDICAID, SELFPAY ==
[2019-11-07 17:37] LABS: COVID-19 RT-PCR UVMMC Result Negative (Negative)
== END 2019-11-06 09:44 ==
PROVIDERS: PCP Family Medicine; Visit Provider Family Medicine
DX: Z03.818 Encounter for observation for suspected exposure to other biological agents ruled out (principal)
CPT/HCPCS: U0003

== ENCOUNTER 2019-11-10 00:47 | Outpatient (RCR) | payer MEDICARE, MEDICAID, SELFPAY | END 2019-11-17 23:59 | disposition home or self-care (01) | LOC: INF 00:47 | PROVIDERS: PCP Family Medicine; Visit Provider Internal Medicine | DX: K50.90 Crohn's disease, unspecified, without complications (principal) | CPT/HCPCS: 96365; J3380 ==

== ENCOUNTER 2020-01-05 01:28 | Outpatient (RCR) | payer MEDICARE, MEDICAID, SELFPAY ==
[2020-01-05] MEDS: VEDOLIZUMAB 300 MG in Normal Saline 250 ML 500 MG IVPB (08:22)
[2020-01-05 08:44] LABS: Abs Immature Grans 0.03 10^3/uL (0.0-0.06); Absolute Basophil Count 0.04 10^3/uL (0.0-0.2); Absolute Eosinophil Count 0.29 10^3/uL (0.0-0.7); Absolute Monocyte Count 0.76 10^3/uL (0.1-0.8); Absolute Neutrophil Count 4.97 10^3/uL (1.2-6.7); Basophils % 0.5; Eosinophils % 3.6; HCT 35.9 % (36.0-46.0); HGB 11.6 g/dL (11.2-15.7); Immature Grans % 0.4; Lymphocytes % 24.7; MCH 28.7 pg (27.0-33.0); MCHC 32.3 % (32.0-36.0); MCV 88.9 fL (80-95); MPV 11.8 fL (8.0-11.0); Monocytes % 9.4; Neutrophils % 61.4; Nucleated RBC 0 %; Platelet Count 290 10^3/uL (130-400); RBC 4.04 10^6/uL (3.93-5.22); RDW 14.7 % (11.7-14.6); RDW-SD 47.7 fL; WBC 8.09 10^3/uL (4.4-10.8)
[2020-01-05 08:58] LABS: ALT 31 U/L (14-59); AST 20 U/L (15-37); Albumin 3.8 g/dL (3.4-5.0); Alkaline Phosphatase 72 U/L (46-116); Bilirubin, Direct 0.06 mg/dL (0.00-0.20); Bilirubin, Total 0.3 mg/dL (0.2-1.0); C-Reactive Protein 0.07 mg/dL (0.0-0.3)
== END 2020-01-18 23:59 | disposition home or self-care (01) ==
LOC: INF 01:28
PROVIDERS: PCP Family Medicine; Visit Provider Internal Medicine
DX: K50.019 Crohn's disease of small intestine with unspecified complications (principal)
CPT/HCPCS: 36415; 80076; 96365; 85025; 86140; J3380

== ENCOUNTER 2020-03-01 01:11 | Outpatient (RCR) | payer MEDICARE, MEDICAID, SELFPAY ==
[2020-03-01] MEDS: VEDOLIZUMAB 300 MG in Normal Saline 250 ML 500 MG IVPB (08:42)
[2020-03-01] MEDS: Normal Saline Flush 10 ML SYR IVP (08:45)
== END 2020-03-19 23:59 | disposition home or self-care (01) ==
LOC: INF 01:11
PROVIDERS: PCP Family Medicine; Visit Provider Internal Medicine
DX: K50.90 Crohn's disease, unspecified, without complications (principal)
CPT/HCPCS: 96365; J3380

== ENCOUNTER 2020-04-26 08:30 | Outpatient (RCR) | payer MEDICARE, MEDICAID, SELFPAY ==
[2020-04-26 08:59] LABS: Abs Immature Grans 0.03 10^3/uL (0.0-0.06); Absolute Basophil Count 0.06 10^3/uL (0.0-0.2); Absolute Eosinophil Count 0.36 10^3/uL (0.0-0.7); Absolute Lymphocyte Count 2.76 10^3/uL (1.2-3.4); Absolute Monocyte Count 0.97 10^3/uL (0.1-0.8); Absolute Neutrophil Count 5.32 10^3/uL (1.2-6.7); Basophils % 0.6; Eosinophils % 3.8; HCT 33.6 % (36.0-46.0); Immature Grans % 0.3; Lymphocytes % 29.1; MCH 28.9 pg (27.0-33.0); MCHC 32.7 % (32.0-36.0); MCV 88.2 fL (80-95); MPV 11.9 fL (8.0-11.0); Monocytes % 10.2; Nucleated RBC 0 %; Platelet Count 288 10^3/uL (130-400); RBC 3.81 10^6/uL (3.93-5.22); RDW 15.8 % (11.7-14.6); RDW-SD 51.3 fL
[2020-04-26 09:17] LABS: ALT 31 U/L (14-59); AST 24 U/L (15-37); Albumin 3.8 g/dL (3.4-5.0); Alkaline Phosphatase 74 U/L (46-116); Bilirubin, Direct 0.06 mg/dL (0.00-0.20); Bilirubin, Total 0.3 mg/dL (0.2-1.0); C-Reactive Protein 0.07 mg/dL (0.0-0.3); Total Protein 7.6 g/dL (6.4-8.2)
[2020-04-26 09:18] LABS: Diff Comment Agrees w/ Instrument; RBC Morphology Normal
[2020-04-26] MEDS: VEDOLIZUMAB 300 MG in Normal Saline 250 ML 500 MG IVPB (09:54)
[2020-04-26] MEDS: Normal Saline Flush 10 ML SYR IVP (09:55)
== END 2020-05-19 23:59 | disposition home or self-care (01) ==
LOC: INF 08:30
PROVIDERS: Internal Medicine Gastroenterology; PCP Family Medicine; Visit Provider Internal Medicine
DX: K50.90 Crohn's disease, unspecified, without complications (principal)
CPT/HCPCS: 36415; 80076; 96365; 85025; 86140; J3380

== ENCOUNTER 2020-05-09 02:14 | Outpatient (CLI) | payer MEDICARE, MEDICAID, SELFPAY ==
[2020-05-09 12:07] LABS: Vitamin D 25 Total 11.8 ng/ml (30-100)
[2020-05-09 12:13] LABS: Magnesium 2.1 mg/dL (1.8-2.4); Vitamin B12 603 pg/mL (193-986)
== END 2020-05-09 02:34 ==
PROVIDERS: PCP Family Medicine
DX: K50.919 Crohn's disease, unspecified, with unspecified complications (principal); M81.0 Age-related osteoporosis without current pathological fracture; D51.8 Other vitamin B12 deficiency anemias
CPT/HCPCS: 36415; 82306; 82607; 83735

== ENCOUNTER 2020-05-25 04:52 | Outpatient (CLI) | payer MEDICARE, MEDICAID, SELFPAY ==
[2020-05-25 13:32] LABS: TSH (W/Ref FT4) 1.04 uIU/mL (0.36-3.74)
[2020-05-26 04:58] LABS: Vitamin D 25 Total 13.5 ng/ml (30-100)
== END 2020-05-25 05:12 ==
PROVIDERS: PCP Family Medicine
DX: E55.9 Vitamin D deficiency, unspecified (principal); R13.10 Dysphagia, unspecified
CPT/HCPCS: 36415; 82306; 84443

== ENCOUNTER 2020-06-21 01:49 | Outpatient (RCR) | payer MEDICARE, MEDICAID, SELFPAY ==
[2020-06-21] MEDS: Normal Saline Flush 10 ML SYR IVP (08:58)
[2020-06-21] MEDS: VEDOLIZUMAB 300 MG in Normal Saline 250 ML 500 MG IVPB (09:53)
== END 2020-07-17 23:59 | disposition home or self-care (01) ==
LOC: INF 01:49
PROVIDERS: PCP Family Medicine; Visit Provider Internal Medicine
DX: K50.90 Crohn's disease, unspecified, without complications (principal)
CPT/HCPCS: 96365; J3380

== ENCOUNTER 2020-07-14 03:24 | Outpatient (CLI) | payer MEDICARE, MEDICAID, SELFPAY ==
[2020-07-14 08:30] LABS: CREATININE 0.7 mg/dL (0.55-1.02)
[2020-07-14 08:59] LABS: Vitamin D 25 Total 16.1 ng/ml (30-100)
[2020-07-21 17:11] LABS: Vedolizumab Ab <9.8 ng/mL (<9.8); Vedolizumab QN, S 55.4 mcg/mL
== END 2020-07-14 03:25 | disposition home or self-care (01) ==
LOC: LBO 03:24
PROVIDERS: PCP Family Medicine
DX: K50.019 Crohn's disease of small intestine with unspecified complications (principal)
CPT/HCPCS: 36415; 82306; 82397; 82565

== ENCOUNTER 2020-08-03 10:38 | Outpatient (CLI) | payer MEDICARE, MEDICAID, SELFPAY ==
--- NOTE | 2020-08-03 09:00 | DI.RAD_ITS ---
EXAM: XR CERVICAL SP COMP W FLEX/EXT CLINICAL HISTORY: neck pain, headaches, worsening arthritis?, cervicalgia, M54.2. TECHNIQUE: 2D digital imaging was performed. COMPARISON: CR CERVICAL SP. LIMITED (TRAUMA) from 08/31/2010 FINDINGS: There is no evidence of acute fracture, listhesis, nor offset of the spinal laminar line. There is m ultilevel chronic degenerative disc disease throughout the cervical spinal column. There is also mil d degenerative anterolisthesis of C3 upon C4. There is fusion across the facet joints at C2-3 level. Degenerative changes at the other facet joints. Small Luschka joint osteophytes are seen on the ob lique views. There are no cervical ribs. No osseous lesions. IMPRESSION: Multilevel chronic degenerative disc disease. Multilevel degenerative facet findings. DATA REPOSITORY: RADIATION DOSE DELIVERED:
--- NOTE | 2020-08-03 09:00 | DI.RAD_ITS ---
EXAM: XR LUMBAR SPINE COMPLETE CLINICAL HISTORY: worsening low back pain, M54.5. TECHNIQUE: 2D digital imaging was performed. COMPARISON: No exams were available for comparison FINDINGS: Is no evidence of fracture, listhesis, or pars interarticularis defects. There is some disc space na rrowing at L4-5 and L5-S1 levels. No significant scoliosis. Mild degenerative facet joint changes. Sacroiliac joints appear unremarkable. Incidentally noted is some calcification in left side of the abdomen. This may represent small parti cles in the stomach. IMPRESSION: Disc space narrowing at L4-5 and L5-S1 levels. DATA REPOSITORY: RADIATION DOSE DELIVERED:
== END 2020-08-03 10:58 ==
PROVIDERS: PCP Family Medicine
DX: M51.36 Other intervertebral disc degeneration, lumbar region (principal); M51.37 Other intervertebral disc degeneration, lumbosacral region; M50.31 Other cervical disc degeneration, high cervical region
CPT/HCPCS: 72052; 72110

== ENCOUNTER 2020-08-16 09:00 | Outpatient (RCR) | payer MEDICARE, MEDICAID, SELFPAY ==
[2020-08-16] MEDS: VEDOLIZUMAB 300 MG in Normal Saline 250 ML 500 MG IVPB (09:30)
[2020-08-16 09:59] LABS: Abs Immature Grans 0.02 10^3/uL (0.0-0.06); Absolute Basophil Count 0.05 10^3/uL (0.0-0.2); Absolute Lymphocyte Count 2.51 10^3/uL (1.2-3.4); Absolute Monocyte Count 0.73 10^3/uL (0.1-0.8); Absolute Neutrophil Count 4.89 10^3/uL (1.2-6.7); Basophils % 0.6; Eosinophils % 3.5; HCT 34.5 % (36.0-46.0); HGB 11.4 g/dL (11.2-15.7); Immature Grans % 0.2; Lymphocytes % 29.5; MCH 29.4 pg (27.0-33.0); MCV 88.9 fL (80-95); MPV 11.5 fL (8.0-11.0); Monocytes % 8.6; Neutrophils % 57.6; Nucleated RBC 0 %; Platelet Count 304 10^3/uL (130-400); RBC 3.88 10^6/uL (3.93-5.22); RDW 14.1 % (11.7-14.6); RDW-SD 45.7 fL
[2020-08-16] MEDS: Normal Saline Flush 10 ML SYR IVP (10:08)
[2020-08-16 10:22] LABS: ALT 33 U/L (14-59); AST 18 U/L (15-37); Albumin 3.9 g/dL (3.4-5.0); Alkaline Phosphatase 89 U/L (46-116); Bilirubin, Direct 0.1 mg/dL (0.0-0.2); Bilirubin, Total 0.3 mg/dL (0.2-1.0); Total Protein 8.2 g/dL (6.4-8.2)
[2020-08-16 10:24] LABS: C-Reactive Protein < 0.05 mg/dL (0.0-0.3)
== END 2020-08-17 23:59 | disposition home or self-care (01) ==
LOC: INF 09:00
PROVIDERS: Internal Medicine Gastroenterology; PCP Family Medicine; Visit Provider Internal Medicine
DX: K50.90 Crohn's disease, unspecified, without complications (principal)
CPT/HCPCS: 36415; 80076; 96365; 85025; 86140; J3380

== ENCOUNTER 2020-09-05 02:50 | Outpatient (CLI) | payer MEDICARE, MEDICAID, SELFPAY ==
[2020-09-06 18:09] LABS: COVID-19 RT-PCR UVMMC Result Negative (Negative)
== END 2020-09-05 02:51 | disposition home or self-care (01) ==
LOC: LBO 02:51
PROVIDERS: PCP Family Medicine; Visit Provider Family Medicine
DX: Z20.822 Contact with and (suspected) exposure to COVID-19 (principal)
CPT/HCPCS: U0003; U0005

== ENCOUNTER 2020-10-12 10:37 | Emergency (ER) | payer MEDICARE, MEDICAID, SELFPAY ==
[2020-10-12] VITALS (45 sets, daily range): BP systolic 103–176; BP diastolic 43–148; PULSE 60–114; RESP 9–26; TEMP 36.1; O2SAT 92–100
--- NOTE | 2020-10-12 10:45 | DI.CT_ITS ---
Exam(s) CT ABDOMEN PELVIS W EXAM: CT ABDOMEN PELVIS W CLINICAL HISTORY: RLQ abd pain, Hx SBO, Hemicolectomy, Tubal Ligatio. TECHNIQUE: Imaging Protocol: Axial computed tomography images with coronal and sagittal reformatted images were created and reviewed CONTRAST MATERIAL: Intravenous: Omnipaque 100cc Oral: None COMPARISON: No exams were available for comparison FINDINGS: VISUALIZED LUNG BASES: Mild benign-appearing increased markings right lung base. No pleural effusion s.. ABDOMEN: There is no ascites. LIVER: There are no focal hepatic lesions evident . GALLBLADDER/BILIARY: No obvious gallbladder pathology. CBD is not dilated. PANCREAS: No evidence of pancreatic mass nor dilatation of the pancreatic duct. SPLEEN: Spleen is not enlarged. No obvious intrasplenic lesions. Splenic and portal veins are paten t. ADRENALS: There are no significant adrenal masses. KIDNEYS:No cysts evident. No solid renal masses. No calculi. However, there are bilateral extraren al pelves and the diameter of the left ureter is increased throughout its length without evidence of a calculus distally in the ureter nor obvious mass in the urinary bladder. Diameter of the right ure ter is upper normal. ABDOMINAL AORTA: Abdominal aorta is not enlarged. LYMPH NODES:There is no retroperitineal nor paraaortic adenopathy. ABDOMINAL WALL: No evidence of significant anterior abdominal wall hernia. GI: There are multiple dilated small bowel loops ranging up to 3.1 cm diameter. There has been prior partial right hemicolectomy. There is fecalization of distal small bowel loops. The colon is not c ollapsed. There is no free air. No abscess. No ascites. PELVIS: GI: The appendix surgically absentno evidence of sigmoid diverticulitis. LYMPH NODES: There is no intrapelvic nor inguinal adenopathy. REPRODUCTIVE: Uterus and adnexal regions appear unremarkable. No fluid in the cul-de-sac. URINARY BLADDER: Not distended. No calculi. The distal left ureter exhibits bulbous dilatation to a diameter of 1.6 cm but there is no obvious calculus nor mass at this level. OSSEOUS: No significant osseous lesions. IMPRESSION: 1. There is evidence of previous right partial hemicolectomy. There are dilated small bowel loops as well as fecalization of distal small bowel loops. The appearance is that of a distal small bowel ob struction. However, there are no collapsed distal small bowel loops and the colon is not collapsed. There may be a subtle distal small bowel stricture. Apparently there was a history of Crohn's disea se. There is no evidence of free air nor abscess nor ascites. 2. Both kidneys exhibit bilateral extrarenal pelves and some dilatation of the ureters, more so on th e left side where the distal most left ureter it exhibits bulbous dilatation to 1.6 cm but without ev idence of a radiopaque calculus nor mass at the UVJ nor in the urinary bladder. Nevertheless, this s hould be followed with urology consultation RADIATION DOSE DELIVERED: 1,312.95mGy.cm Total DLP DATA REPOSITORY: All CT scans at this facility are submitted to the National Radiology Data Registry (NRDR) Dose Index Registry (DIR) with the [employer] ([employer]). RADIATION OPTIMIZATION: All CT scans at this facility use at least one of these dose optimization te chniques: automated exposure control; mA and/or kV adjustment per patient size (includes targeted exa ms where dose is matched to clinical indication); or iterative reconstruction.
[2020-10-12 11:05] LABS: Abs Immature Grans 0.04 10^3/uL (0.0-0.06); Absolute Basophil Count 0.06 10^3/uL (0.0-0.2); Absolute Eosinophil Count 0.26 10^3/uL (0.0-0.7); Absolute Lymphocyte Count 2.93 10^3/uL (1.2-3.4); Absolute Monocyte Count 1.04 10^3/uL (0.1-0.8); Basophils % 0.4; Eosinophils % 1.8; HCT 36.9 % (36.0-46.0); HGB 12.4 g/dL (11.2-15.7); Immature Grans % 0.3; MCHC 33.6 % (32.0-36.0); MCV 86.2 fL (80-95); MPV 11.1 fL (8.0-11.0); Monocytes % 7.1; Neutrophils % 70.4; Nucleated RBC 0 %; Platelet Count 327 10^3/uL (130-400); RBC 4.28 10^6/uL (3.93-5.22); RDW 14.7 % (11.7-14.6); RDW-SD 46.3 fL; WBC 14.65 10^3/uL (4.4-10.8)
--- NOTE | 2020-10-12 11:06 | W.ED.GENAD ---
Discharge Plan Disposition Patient Disposition: [facility] Condition: Serious Discharge Details Clinical Impression: Small bowel obstruction Primary Care Provider: Terrie Burroughs ED Provider: Madonna Colunga Home Meds and New Rx's Prescriptions: No Action Shingrix (PF) 50 mcg/0.5 mL suspension for reconstitution 0.5 ml IM ONCE Qty: 1 RF: 1 Dexilant 60 mg capsule,biphase delayed releas 60 mg PO DAILY RF: 0 fluticasone propionate [Flonase Allergy Relief] 50 mcg/actuation spray,suspension 1 spray intranasal DAILY RF: 0 doxycycline hyclate 100 mg tablet 100 mg PO BID Qty: 14 RF: 0 multivitamin [One Daily] 1 EACH tablet 1 ea PO DAILY RF: 0 acetaminophen [Tylenol] 325 MG tablet 325 mg PO PRN RF: 0 vitamin B complex [B-Complex] 1 EACH tablet 1 ea PO DAILY RF: 0 albuterol sulfate [ProAir HFA] 8.5 GM HFA aerosol inhaler 1 - 2 puff Inhalation QID PRNQty: 1 RF: 4 cyanocobalamin (vitamin B-12) 1,000 MCG/1 ML solution 1,000 mcg IJ QMONTH Qty: 1 RF: 0 cholestyramine (with sugar) [Questran] 4 gram powder See Rx Instructions PO DAILY RF: 3 Entyvio 300 mg recon soln 300 mg IV Q8W Qty: 1 RF: 0 amlodipine 10 mg tablet 10 mg PO DAILY Qty: 90 RF: 4 cholecalciferol (vitamin D3) 50 mcg (2,000 unit) tablet 50 mcg PO DAILY Qty: 90 RF: 3 cholecalciferol (vitamin D3) 1,250 mcg (50,000 unit) capsule 1,250 mcg PO QWEEK RF: 0 Discharge Data Discharge Date/Time-TO BE ENTERED AT DEPARTURE: 10/12/20 17:30 Medical Decision Making 75-year-old female presents to the ER with chief complaint of right lower abdominal pain which and distention which began this morning suddenly. Patient states that she had to cups of coffee prior to episode. She does have a past medical history of Crohn's, hemicolectomy, small bowel obstruction last in 2011. She does see GI doctor at last seen in August which she reports was told that she had a stricture that needed to be surgically repaired at that time. She has not had any problems since her last visit with GI specialist. She reports her pain waxes and wanes but is constant in nature. Associated with nausea no vomiting no diarrhea last bowel movement was yesterday and she reports it is normal denies any blood in her stools or dark tarry stools positive chills, no fever. CBC shows white blood cell count 14.65, absolute neutrophils 10.31, lactate is pending at this time, sodium 141 potassium 4.1, chloride 104 anion gap 13.0, glucose 111 urinalysis is within normal limits no evidence of UTI. IMPRESSION: 1. There is evidence of previous right partial hemicolectomy. There are dilated small bowel loops as well as fecalization of distal small bowel loops. The appearance is that of a distal small bowel obstruction. However, there are no collapsed distal small bowel loops and the colon is not collapsed. There may be a subtle distal small bowel stricture. Apparently there was a history of Crohn's disease. There is no evidence of free air nor abscess nor ascites. 2. Both kidneys exhibit bilateral extrarenal pelves and some dilatation of the ureters, more so on the left side where the distal most left ureter it exhibits bulbous dilatation to 1.6 cm but without evidence of a radiopaque calculus nor mass at the UVJ nor in the urinary bladder. Nevertheless, this should be followed with urology consultation 1303: Spoke with [facility] transfer center for consult with General surgery and to request transfer for SBO. Patient sees Dr. Vaz with GI at [facility]. 1346: Spoke with [facility] transfer center, General surgeon to call me back in 1 hour. 1430: Patient had an episode of emesis Zofran given by nursing staff development coordinator. Lactate is 2.1. 1534: Dr. Rodríguez with Surgery paged. Have not heard back from [facility] general surgery. NG tube has been placed approximately 100 cc of light brown output noted at this time. 1545: Spoke with Dr Mendoza with Acute care surgery at [facility], Discussed patient care and details, she agrees to evaluate patient in ED. also spoke with Dr. Robin in the ER who is accepting. Will arrange for transport. At the time of this dictation transfer is pending via [facility]. Patient was retching with the NG tube I did order Phenergan 25 mg IV piggyback. I instructed the nurse to apply Cetacaine spray. I did talk patient down she does appear anxious, retching and nausea has now diminished. Patient aware of plan of care and pending transfer to [facility] she verbalizes understanding. HPI General Mode of arrival: wheelchair. Date/Time Provider Initiated Documentation: 10/12/20 10:53. Limitations to Documentation: no limitations. Information obtained by: patient and old records reviewed. HPI Narrative: 75-year-old female presents to the ER with chief complaint of right lower abdominal pain which and distention which began this morning suddenly. Patient states that she had to cups of coffee prior to episode. She does have a past medical history of Crohn's, hemicolectomy, small bowel obstruction last in 2011. She does see GI doctor at last seen in August which she reports was told that she had a stricture that needed to be surgically repaired at that time. She has not had any problems since her last visit with GI specialist. She reports her pain waxes and wanes but is constant in nature. Associated with nausea no vomiting no diarrhea last bowel movement was yesterday and she reports it is normal denies any blood in her stools or dark tarry stools positive chills, no fever. Related Data Home Medications Medication Instructions Recorded Confirmed acetaminophen [Tylenol] 325 mg PO PRN 12/10/12 10/12/20 multivitamin [One Daily] 1 ea PO DAILY 12/10/12 10/12/20 vitamin B complex [B-Complex] 1 ea PO DAILY 12/10/12 10/12/20 albuterol sulfate [ProAir HFA] 1 - 2 puff INHALATION QID PRN #1 09/03/16 10/12/20 inhaler cyanocobalamin (vitamin B-12) 1,000 mcg IJ QMONTH #1 vial 11/14/17 10/12/20 cholestyramine (with sugar) 4 gram See Rx Instructions PO DAILY gm 07/01/18 10/12/20 oral powder varicella-zoster glycoE [id number] 0.5 ml IM ONCE #1 each 07/01/18 10/12/20 adj(PF) 50 mcg/0.5 mL IM susp, kit vedolizumab 300 mg intravenous 300 mg IV Q8W #1 each 03/09/19 10/12/20 solution amlodipine 10 mg tablet 10 mg PO DAILY #90 tab 03/15/20 10/12/20 dexlansoprazole 60 mg 60 mg PO DAILY 05/05/20 10/12/20 capsule,biphase delayed release fluticasone propionate 50 1 spray INTRANASAL DAILY 05/05/20 10/12/20 mcg/actuation nasal spray,suspension cholecalciferol (vitamin D3) 50 50 mcg PO DAILY #90 tab 05/15/20 10/12/20 mcg (2,000 unit) tablet doxycycline hyclate 100 mg tablet 100 mg PO BID #14 tab 05/31/20 10/12/20 cholecalciferol (vitamin D3) 1,250 1,250 mcg PO QWEEK 08/11/20 10/12/20 mcg (50,000 unit) capsule Previous Rx's Medication Instructions Recorded varicella-zoster glycoE [id number] 0.5 ml IM ONCE #1 each 07/01/18 adj(PF) 50 mcg/0.5 mL IM susp, kit vedolizumab 300 mg intravenous 300 mg IV Q8W #1 each 03/09/19 solution amlodipine 10 mg tablet 10 mg PO DAILY #90 tab 03/15/20 cholecalciferol (vitamin D3) 50 50 mcg PO DAILY #90 tab 05/15/20 mcg (2,000 unit) tablet doxycycline hyclate 100 mg tablet 100 mg PO BID #14 tab 05/31/20 Allergies Allergy/AdvReac Type Severity Reaction Status Date / Time latex Allergy Severe SKIN RASH; Verified 10/12/20 10:46 BLISTERS infliximab [From Remicade] Allergy Intermediate Flushing, Verified 10/12/20 10:46 puffiness in face metronidazole [From Flagyl] Allergy Intermediate RASH Verified 10/12/20 10:46 esomeprazole Allergy Unknown UPPER BODY Verified 10/12/20 10:46 RASH Iodinated Contrast Media Allergy Unknown Verified 10/12/20 10:46 [Iodinated Contrast- Oral and IV Dye] Sulfa (Sulfonamide Allergy Unknown Verified 10/12/20 10:46 Antibiotics) clindamycin AdvReac Severe GI UPSET Verified 10/12/20 10:46 azithromycin AdvReac Intermediate gi intol. Verified 10/12/20 10:46 diarrhea goas bloating cramps potassium clavulanate AdvReac Intermediate diarrhea Verified 10/12/20 10:46 [From Augmentin] omeprazole AdvReac Mild NAUSEA Verified 10/12/20 10:46 General Stated Complaint: Abd Prob ACPRICE: 3 Review of Systems Narrative: Constitutional: Negative for weight loss, alert and oriented, well groomed, normal body habitus, appears uncomfortable and anxious. HEENT: Denies trauma, headaches, blurry vision, nasal discharge, sore throat, trouble swallowing. Chest: Denies chest pain, palpitations, irregular rhythm, hypertension. Respiratory: Denies Shortness of breath, cough, hemoptysis. GI: Denies diarrhea, constipation. Positive right lower quadrant abdominal pain nausea vomiting. History of Crohn's and small bowel obstruction with strictures : Denies dysuria, hematuria, flank pain, rectal bleeding. Neuro: Denies dizziness, blurry vision, weakness, syncope, headache or facial numbness. Hematologic: Denies easy bruising, intolerance to heat or cold, hair loss. [facility] Medical History Cervicalgia (02/16/16) Conductive hearing loss in right ear (02/16/16) Crohn's disease last colonoscopy: : [facility] [place] Dr. Ruano colono: : normal / on Imuran and Remicade 2014/ [facility] [place] 02/23/2020 - Dr. James at [facility] [place]. +CMV per biopsy GERD (gastroesophageal reflux disease) Herpes zoster History of tobacco use [id number] HTN (hypertension) Low back pain Odynophagia (02/16/16) CT scan neck: negative except very long styloid processes/ symptoms poss. sec to trigeminal neuralgia Osteoarthritis Osteoporosis no biophosphonates bc GI problems/Dexa. in Swallowing difficulty Vitamin D deficiency Surgical History Hemicolectomy ruptured appendix; abcess (RIGHT) Ligation of fallopian tube MASTOIDECTOMY Tonsillectomy and adenoidectomy Family History Mother , 69 Diabetes Stroke Father , 60 Myocardial infarction Sister , 70 No problems noted. Sister Crohn's disease Sister No problems noted. Maternal Grandfather No problems noted. Paternal Grandfather No problems noted. Maternal Grandmother No problems noted. Paternal Grandmother No problems noted. Daughter No problems noted. Daughter No problems noted. Social History Smoking/Tobacco Use Status: Former Tobacco Use Quit Date: 05/20/79 Smoking risk assessment performed?: Yes Alcohol Intake: current Alcohol Intake frequency: a few times a month Alcohol type: beer Drug use: Never Counseling provided: none Caregiver/Support person: No Household members: none Communication Needs: Hard of Hearing and Corrective Lenses Pets and animals: No Sexually active: No Do you think of yourself as: straight/heterosexual Current gender identity: female What is your relationship status?: How often do you talk on the phone with friends or family?: three or more times per week Do you belong to any clubs or organized social groups?: no Panel score (0-1 are the most socially isolated patients): 1 What type of physical activity do you participate in: walking, bicycling and other Details: Stationary bike Duration: 15-30 minutes/day Frequency: daily Oma/Taoism: Taoism Seatbelt use: always Drive intox or ride w/intox highway truck driver: No Do you feel safe at home: Yes Do you feel safe in your relationship?: Yes Victim of physical abuse: No Victim of emotional abuse: No Victim of sexual abuse: No Would you like helpful sources: No Exam Narrative Exam Narrative: Constitutional: Alert and oriented x3. Appears stated age. Normal body habitus. Appears uncomfortable and anxious. Head: Normocephalic, no trauma. Eyes: Pupils PERRLA, Red reflex noted, EOM's intact. Eyelids symmetrical without lesions, discharge, or swelling. ENT: Bilateral TM's WNL, External ear normal to inspection, no mastoid TTP, swelling, or erythema, Nasal turbinates WNL, no nasal discharge. Normal dentition, Posterior pharynx WNL, no exudate. Chest: RRR, Normal S1, S2, distal pulses intact. Resp: Lungs clear to auscultation bilaterally, no wheezes, rales, or rhonchi. Abdomen: Soft, tender right lower quadrant to palpation. There is 2 old appearing vertical surgical incisions which are healed in the right lower quadrant. Musculoskeletal: Normal gait, 5/5 strength to all four extremities. Skin: No suspicious rashes or lesions. Capillary refill less than 2 sec. Neurologic: Cranial nerves II-XII intact. Alert and oriented x 3. DTR's intact. Hematologic/Lymphatic: No ecchymosis, no lymphadenopathy. Course Vital Signs Vital signs: Vital Signs Temperature 36.1 C L 10/12/20 10:41 Pulse 80 10/12/20 10:41 Respiratory Rate 22 10/12/20 10:41 Blood Pressure 166/74 H 10/12/20 10:41 Pulse Oximetry 99 10/12/20 10:41 Temperature 36.1 C L 10/12/20 10:41 Temperature Source Skin 10/12/20 10:41 Pulse 80 10/12/20 10:41 Respiratory Rate 22 10/12/20 10:41 Blood Pressure 166/74 H 10/12/20 10:41 Pulse Oximetry 99 10/12/20 10:41 Oxygen Delivery Method Room Air 10/12/20 10:41 Oxygen Flow Rate 0 10/12/20 10:41 Pain Level 10 10/12/20 10:41 Comment 10/12/20 10:41
[2020-10-12 11:07] LABS: Absolute Neutrophil Count 10.31 10^3/uL (1.2-6.7)
[2020-10-12] MEDS: Ondansetron 4 MG/2 ML VIAL IVP ×2 (11:12→14:30)
[2020-10-12 11:17] LABS: ALT 34 U/L (14-59); AST 20 U/L (15-37); Albumin 4.2 g/dL (3.4-5.0); Alkaline Phosphatase 86 U/L (46-116); BUN 15 mg/dL (7-18); Bilirubin, Total 0.4 mg/dL (0.2-1.0); CREATININE 0.8 mg/dL (0.55-1.02); Calcium 9.7 mg/dL (8.5-10.1); Chloride 104 mmol/L (98-107); Glucose 111 mg/dL (74-106); Lipase 72 U/L (73-393); Potassium 4.1 mmol/L (3.5-5.1); Sodium 141 mmol/L (136-145); Total Protein 8.3 g/dL (6.4-8.2)
[2020-10-12] MEDS: Normal Saline 1,000 ML 150 ML IV (11:20)
[2020-10-12 11:24] LABS: Bilirubin Negative (Negative); Blood Negative (Negative); Clarity Clear (Clear); Glucose Negative (Negative); Ketones Negative (Negative); Leukocyte Esterase Negative (Negative); Nitrite Negative (Negative); Specific Gravity 1.015 (1.005-1.025); Urobilinogen 0.2 EU/dL (Up TO 0.2); pH 5.5 (5-8)
[2020-10-12] MEDS: Omnipaque 350 MG/ML 100 ML BTL 80 ML IJ (12:11)
[2020-10-12] MEDS: Normal Saline - Diluent 50 ML VIAL IV (12:12)
[2020-10-12 13:57] LABS: Lactate 2.1 mmol/L (0.6-1.4)
[2020-10-12] MEDS: LORazepam 2 MG/ML VIAL 0.5 MG IVP (15:14)
--- NOTE | 2020-10-12 18:39 | NUR.NOTE ---
Nursing Note:This repairer typewriter attempted to call report to [facility] ED. Was placed on hold x 10 minutes. Due to busy ED floor and patient needs, this repairer typewriter needed to hang up at this time. Will attempt to call back later.
== END 2020-10-12 17:30 ==
PROVIDERS: Emergency Provider Registered Nurse Emergency; PCP Family Medicine
DX: K56.699 Other intestinal obstruction unspecified as to partial versus complete obstruction (principal); Z90.49 Acquired absence of other specified parts of digestive tract
CPT/HCPCS: 36415; 80053; 83690; 96361; 96365; 96375; 96376; 99285; 74177; 81003; 83605; 83735; 85025; J2060; J2405; J3490

== ENCOUNTER 2020-12-21 02:44 | Outpatient (RCR) | payer MEDICARE, MEDICAID, SELFPAY ==
[2020-12-21] MEDS: Normal Saline Flush 10 ML SYR IVP (13:24)
[2020-12-21 13:31] LABS: Abs Immature Grans 0.04 10^3/uL (0.0-0.06); Absolute Basophil Count 0.04 10^3/uL (0.0-0.2); Absolute Eosinophil Count 0.22 10^3/uL (0.0-0.7); Absolute Lymphocyte Count 2.44 10^3/uL (1.2-3.4); Absolute Neutrophil Count 6.05 10^3/uL (1.2-6.7); Basophils % 0.4; Eosinophils % 2.3; HCT 29.7 % (36.0-46.0); HGB 9.5 g/dL (11.2-15.7); Immature Grans % 0.4; MCH 27.8 pg (27.0-33.0); MCV 86.8 fL (80-95); MPV 11.5 fL (8.0-11.0); Monocytes % 6.4; Neutrophils % 64.5; Nucleated RBC 0 %; Platelet Count 296 10^3/uL (130-400); RBC 3.42 10^6/uL (3.93-5.22); RDW 15.6 % (11.7-14.6); RDW-SD 50.2 fL; WBC 9.39 10^3/uL (4.4-10.8)
[2020-12-21] MEDS: VEDOLIZUMAB 300 MG in Normal Saline 250 ML 500 MG IVPB (13:35)
[2020-12-21 13:56] LABS: ALT 22 U/L (14-59); AST 18 U/L (15-37); Albumin 3.4 g/dL (3.4-5.0); Alkaline Phosphatase 74 U/L (46-116); Bilirubin, Total 0.2 mg/dL (0.2-1.0); C-Reactive Protein 0.09 mg/dL (0.0-0.3); Total Protein 6.8 g/dL (6.4-8.2)
[2020-12-21 14:06] LABS: Bilirubin, Direct < 0.1 mg/dL (0.0-0.2)
[2020-12-21 14:43] LABS: Vitamin B12 509 pg/mL (193-986)
[2020-12-22 01:24] LABS: Vitamin D 25 Total 17.9 ng/mL (30-100)
[2020-12-28 15:03] LABS: Vedolizumab Ab <9.8 ng/mL (<9.8); Vedolizumab QN, S 10.5 mcg/mL
== END 2021-01-17 23:59 | disposition home or self-care (01) ==
LOC: INF 02:44
PROVIDERS: Internal Medicine Gastroenterology; PCP Family Medicine; Visit Provider Internal Medicine
DX: K50.90 Crohn's disease, unspecified, without complications (principal)
CPT/HCPCS: 36415; 80076; 82306; 82397; 96365; 82607; 85025; 86140; J3380

== ENCOUNTER 2020-12-28 03:30 | Outpatient (CLI) | payer MEDICARE, MEDICAID, SELFPAY ==
[2020-12-30 09:42] LABS: Antistrep-O Titer 64 IU/mL (0 - 530)
== END 2020-12-28 03:31 | disposition home or self-care (01) ==
LOC: LBO 03:31
PROVIDERS: PCP Family Medicine; Visit Provider Physician Assistant
DX: J02.9 Acute pharyngitis, unspecified (principal); L30.8 Other specified dermatitis
CPT/HCPCS: 36415; 86060

== ENCOUNTER 2021-01-24 05:33 | Outpatient (CLI) | payer MEDICARE, MEDICAID, SELFPAY ==
--- NOTE | 2021-01-24 13:00 | NS.NUTBLAN_ITS ---
Toshia was referred to Medical Nutrition Therapy for nutritional strategies to regain weight. Toshia has Crohn's Dx and has multiple bowel obstructions, fistulas and abcesses since 1998. Most recently had fistula repair which resulted in an abcess and wound infection requiring several weeks of antibiotics and a wound vac. Following treatment, Toshia developed yeast infection that was cleared up by steriodal creams. She reports having 3-4 stools daily, often watery but no blood. Weight has increased by 5 lbs in last month. 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 5''2 95 lbs. Goal wt: 110 lbs. Most recent labs indicates Vit D trending upward but still low, albumin wnl. Meds include MVI, B complex and 2000 IU Vit D daily. Estimated Needs for weight regain: 7692-0906 kcal, 70-80 g protein, 50-60 g fat. Food Record: mostly well balanced, small meals providing 9587-7075 kcal, 60-70 g protein. Session today focused on how to increase calories in meal plan and maintaining good digestion. Review of diet indicates that Toshia needs to add 400-500 calories per day in order to gain weight. Recommended 1/4 cup Boost Plus x 4 times per day, and adding 1 slice (1 oz) of aged chedder to meals. Toshia has done a great job regaining weight and finding easy to digest foods. She appears well nourished but thin. Provided meal plans and contact information for follow up prn.
== END 2021-01-24 05:34 | disposition home or self-care (01) ==
PROVIDERS: PCP Family Medicine; Visit Provider Dietitian, Registered
DX: R63.4 Abnormal weight loss (principal); K50.90 Crohn's disease, unspecified, without complications; Z71.3 Dietary counseling and surveillance
CPT/HCPCS: 97802

== ENCOUNTER 2021-02-14 03:11 | Outpatient (RCR) | payer MEDICARE, MEDICAID, SELFPAY ==
[2021-02-14] MEDS: VEDOLIZUMAB 300 MG in Normal Saline 250 ML 500 MG IVPB (10:01)
[2021-02-14] MEDS: Normal Saline Flush 10 ML SYR IVP (10:52)
== END 2021-02-16 23:59 | disposition home or self-care (01) ==
LOC: INF 03:11
PROVIDERS: PCP Family Medicine; Visit Provider Internal Medicine
DX: K50.90 Crohn's disease, unspecified, without complications (principal)
CPT/HCPCS: 96365; J3380

== ENCOUNTER 2021-02-23 06:59 | Outpatient (REF) | payer MEDICARE, MEDICAID, SELFPAY ==
[2021-02-23 11:13] LABS: C Diff PCR Negative (Negative)
[2021-02-25 17:25] LABS: Calprotectin 15.8 mcg/g
== END 2021-02-23 07:00 | disposition home or self-care (01) ==
LOC: LBN 06:59
PROVIDERS: PCP Family Medicine; Visit Provider Internal Medicine Gastroenterology
DX: K50.00 Crohn's disease of small intestine without complications (principal)
CPT/HCPCS: 87493; 83993

== ENCOUNTER 2021-03-01 13:28 | Outpatient (REF) | payer MEDICARE, MEDICAID, SELFPAY ==
[2021-03-03 01:01] LABS: COVID-19 RT-PCR UVMMC Result Negative (Negative)
== END 2021-03-01 13:29 | disposition home or self-care (01) ==
LOC: LBN 13:28
PROVIDERS: PCP Family Medicine; Visit Provider Family Medicine
DX: Z20.822 Contact with and (suspected) exposure to COVID-19 (principal)
CPT/HCPCS: U0003; U0005

== ENCOUNTER 2021-04-11 00:45 | Outpatient (CLI) | payer MEDICARE, MEDICAID, SELFPAY ==
--- NOTE | 2021-04-11 06:30 | DI.MAMMO_ITS ---
Exam(s) MAMMO SCREENING EXAM: MAMMO SCREENING CLINICAL HISTORY: screening,Z12.39 TECHNIQUE: Mammograms were interpreted according to the usual protocol including computer analysis w [employer] CAD system, tomosynthesis and C-view imaging. COMPARISON: FINDINGS: The breasts are heterogeneously dense with fairly symmetrical distribution of fibroglandular tissue. No dominant mass or clumped microcalcification is identified in either breast. Examination is compared with multiple previous examinations including October and there h as been little if any interval change in appearance of the breasts in comparison with the prior studi es. IMPRESSION: No specific evidence of malignancy at this time. Routine screening examinations are suggested yearly intervals in this age group according to the ACS ACR guidelines. BI-RADS Category 1 - Negative Breast Density - Category C - Heterogeneously dense
== END 2021-04-11 01:05 ==
PROVIDERS: PCP Family Medicine; Visit Provider Family Medicine
DX: Z12.31 Encounter for screening mammogram for malignant neoplasm of breast (principal); R92.8 Other abnormal and inconclusive findings on diagnostic imaging of breast
CPT/HCPCS: 77063; 77067

== ENCOUNTER 2021-04-11 09:30 | Outpatient (RCR) | payer MEDICARE, MEDICAID, SELFPAY ==
[2021-04-11 09:28] LABS: HCT 30.3 % (36.0-46.0); HGB 9.5 g/dL (11.2-15.7); MCH 27.2 pg (27.0-33.0); MCHC 31.4 % (32.0-36.0); MCV 86.8 fL (80-95); MPV 11.4 fL (8.0-11.0); Platelet Count 331 10^3/uL (130-400); RBC 3.49 10^6/uL (3.93-5.22); RDW 15.7 % (11.7-14.6); RDW-SD 50.1 fL
[2021-04-11] MEDS: Normal Saline Flush 10 ML SYR IVP (09:28)
[2021-04-11 09:41] LABS: ALT 28 U/L (14-59); AST 19 U/L (15-37); Albumin 3.7 g/dL (3.4-5.0); Alkaline Phosphatase 82 U/L (46-116); Bilirubin, Direct < 0.1 mg/dL (0.0-0.2); Bilirubin, Total 0.3 mg/dL (0.2-1.0); C-Reactive Protein < 0.05 mg/dL (0.0-0.3); Total Protein 7.5 g/dL (6.4-8.2)
[2021-04-11] MEDS: VEDOLIZUMAB 300 MG in Normal Saline 250 ML 500 MG IVPB (09:59)
== END 2021-04-18 23:59 | disposition home or self-care (01) ==
LOC: INF 09:30
PROVIDERS: PCP Family Medicine; Visit Provider Internal Medicine
DX: K50.90 Crohn's disease, unspecified, without complications (principal); Z79.899 Other long term (current) drug therapy
CPT/HCPCS: 36415; 80076; 85027; 96365; 86140; J3380

== ENCOUNTER 2021-05-15 04:20 | Outpatient (CLI) | payer MEDICARE, MEDICAID, SELFPAY ==
[2021-05-15 10:48] LABS: HCT 30.3 % (36.0-46.0); HGB 9.5 g/dL (11.2-15.7); MCH 26.8 pg (27.0-33.0); MCHC 31.4 % (32.0-36.0); MCV 85.6 fL (80-95); MPV 11.4 fL (8.0-11.0); Platelet Count 295 10^3/uL (130-400); RBC 3.54 10^6/uL (3.93-5.22); RDW 14.5 % (11.7-14.6); RDW-SD 45.5 fL; WBC 10.96 10^3/uL (4.4-10.8)
[2021-05-15 11:29] LABS: Iron 20 ug/dL (50-170); Total Iron Binding Capacity 508 ug/dL (250-450); Transferrin Sat 4 % (15-50)
[2021-05-15 11:52] LABS: Vitamin D 25 Total 12.2 ng/mL (30-100)
[2021-05-15 11:57] LABS: ALT 26 U/L (14-59); AST 19 U/L (15-37); Albumin 3.9 g/dL (3.4-5.0); Alkaline Phosphatase 87 U/L (46-116); Anion Gap 12.4 mmol/L (3-11); BUN 16 mg/dL (7-18); Bilirubin, Total 0.4 mg/dL (0.2-1.0); CO2 23.6 mmol/L (21.0-32.0); CREATININE 0.7 mg/dL (0.55-1.02); Calcium 8.7 mg/dL (8.5-10.1); Chloride 102 mmol/L (98-107); Ferritin 9 ng/mL (8-252); Glucose 85 mg/dL (74-106); Potassium 4.1 mmol/L (3.5-5.1); Sodium 138 mmol/L (136-145); TSH (W/Ref FT4) 1.08 uIU/mL (0.36-3.74); Total Protein 7.2 g/dL (6.4-8.2); Vitamin B12 364 pg/mL (193-986)
== END 2021-05-15 04:21 | disposition home or self-care (01) ==
LOC: LBO 04:20
PROVIDERS: PCP Family Medicine; Visit Provider Family Medicine
DX: K50.919 Crohn's disease, unspecified, with unspecified complications (principal); I10 Essential (primary) hypertension; E55.9 Vitamin D deficiency, unspecified; D64.9 Anemia, unspecified
CPT/HCPCS: 36415; 80053; 82306; 85027; 82607; 82728; 83540; 83550; 84443

== ENCOUNTER 2021-06-06 01:23 | Outpatient (RCR) | payer MEDICARE, MEDICAID, SELFPAY ==
[2021-06-06] MEDS: Normal Saline Flush 10 ML SYR IVP (10:06)
[2021-06-06] MEDS: VEDOLIZUMAB 300 MG in Normal Saline 250 ML 500 MG IVPB (10:06)
== END 2021-06-19 23:59 | disposition home or self-care (01) ==
LOC: INF 01:23
PROVIDERS: PCP Family Medicine; Visit Provider Internal Medicine
DX: K50.90 Crohn's disease, unspecified, without complications (principal)
CPT/HCPCS: 96365; J3380

== ENCOUNTER 2021-07-17 02:55 | Outpatient (CLI) | payer MEDICARE, MEDICAID, SELFPAY ==
[2021-07-17 10:55] LABS: MCH 26.8 pg (27.0-33.0); MCHC 32.3 % (32.0-36.0); MCV 83.1 fL (80-95); MPV 11.6 fL (8.0-11.0); Platelet Count 307 10^3/uL (130-400); RBC 3.73 10^6/uL (3.93-5.22); RDW 16.8 % (11.7-14.6); RDW-SD 51.5 fL; WBC 11.03 10^3/uL (4.4-10.8)
[2021-07-17 12:49] LABS: Iron 27 ug/dL (50-170); Total Iron Binding Capacity 435 ug/dL (250-450); Transferrin Sat 6 % (15-50)
[2021-07-17 13:09] LABS: Vitamin D 25 Total 13.4 ng/mL (30-100)
[2021-07-17 18:28] LABS: Ferritin 24 ng/mL (10-291)
== END 2021-07-17 02:56 | disposition home or self-care (01) ==
LOC: LBO 02:56
PROVIDERS: PCP Family Medicine; Visit Provider Family Medicine
DX: E55.9 Vitamin D deficiency, unspecified; D64.9 Anemia, unspecified
CPT/HCPCS: 36415; 82306; 85027; 82728; 83540; 83550

== ENCOUNTER 2021-08-01 00:51 | Outpatient (RCR) | payer MEDICARE, MEDICAID, SELFPAY ==
[2021-08-01 09:51] LABS: HCT 31.9 % (36.0-46.0); MCH 26.3 pg (27.0-33.0); MCHC 31.3 % (32.0-36.0); MCV 83.9 fL (80-95); MPV 10.9 fL (8.0-11.0); Platelet Count 293 10^3/uL (130-400); RDW 19.1 % (11.7-14.6); RDW-SD 58.2 fL; WBC 10.39 10^3/uL (4.4-10.8)
[2021-08-01] MEDS: Normal Saline Flush 10 ML SYR IVP (10:01)
[2021-08-01] MEDS: VEDOLIZUMAB 300 MG in Normal Saline 250 ML 500 MG IVPB (10:01)
[2021-08-01 10:14] LABS: ALT 25 U/L (14-59); AST 20 U/L (15-37); Albumin 4.1 g/dL (3.4-5.0); Alkaline Phosphatase 83 U/L (46-116); Bilirubin, Direct 0.1 mg/dL (0.0-0.2); Bilirubin, Total 0.3 mg/dL (0.2-1.0); CREATININE 0.8 mg/dL (0.55-1.02); TSH 0.99 uIU/mL (0.36-3.74); Total Protein 7.9 g/dL (6.4-8.2)
[2021-08-01 10:17] LABS: C-Reactive Protein < 0.05 mg/dL (0.0-0.3)
[2021-08-10 12:39] LABS: Vedolizumab Ab <9.8 ng/mL (<9.8); Vedolizumab QN, S 27.2 mcg/mL
== END 2021-08-17 23:59 | disposition home or self-care (01) ==
LOC: INF 00:51
PROVIDERS: Internal Medicine Gastroenterology; PCP Family Medicine; Visit Provider Internal Medicine
DX: K50.90 Crohn's disease, unspecified, without complications (principal)
CPT/HCPCS: 36415; 80076; 82397; 85027; 96365; 82565; 84443; 86140; J3380

== ENCOUNTER → 2021-08-04 08:32 | Outpatient (BNVA) | payer MEDICARE, MEDICAID, SELFPAY | PROVIDERS: PCP Family Medicine; Referring Provider Family Medicine; Visit Provider Student in an Organized Health Care Education/Training Program | DX: M19.041 Primary osteoarthritis, right hand (principal); M76.31 Iliotibial band syndrome, right leg | CPT/HCPCS: 99214 ==

== ENCOUNTER 2021-09-26 01:02 | Outpatient (RCR) | payer MEDICARE, MEDICAID, SELFPAY ==
[2021-09-26] MEDS: Normal Saline Flush 10 ML SYR IVP (09:25)
[2021-09-26] MEDS: VEDOLIZUMAB 300 MG in Normal Saline 250 ML 500 MG IVPB (09:47)
== END 2021-10-17 23:59 | disposition home or self-care (01) ==
LOC: INF 01:02
PROVIDERS: PCP Family Medicine; Visit Provider Internal Medicine
DX: K50.90 Crohn's disease, unspecified, without complications (principal); Z45.2 Encounter for adjustment and management of vascular access device
CPT/HCPCS: 36591; 96365; J3380

== ENCOUNTER 2021-11-02 16:48 | Outpatient (REF) | payer MEDICARE, MEDICAID, SELFPAY ==
[2021-11-02 12:38] LABS: Bilirubin Negative (Negative); Blood Moderate (Negative); Clarity Sl Cloudy (Clear); Glucose Negative (Negative); Ketones Negative (Negative); Leukocyte Esterase Moderate (Negative); Nitrite Negative (Negative); Urobilinogen 0.2 EU/dL (Up TO 0.2); pH 5.5 (5-8)
[2021-11-02 12:53] LABS: Bacteria Rare HPF (Negative); C & S Indicated? Yes; Casts Negative LPF (Negative); Crystals Negative HPF (Negative); Epithelial Cells Rare HPF (Negative); Mucus Negative (Negative)
== END 2021-11-02 16:49 | disposition home or self-care (01) ==
LOC: LBN 16:48
PROVIDERS: PCP Nurse Practitioner Family; Visit Provider Emergency Medicine
DX: R30.0 Dysuria (principal)
CPT/HCPCS: 81003; 81015; 87086

== ENCOUNTER 2021-11-22 02:28 | Outpatient (RCR) | payer MEDICARE, MEDICAID, SELFPAY ==
[2021-11-22 09:43] LABS: HCT 34.3 % (36.0-46.0); HGB 11.1 g/dL (11.2-15.7); MCH 28.2 pg (27.0-33.0); MCHC 32.4 % (32.0-36.0); MCV 87 fL (80-95); MPV 10.8 fL (8.0-11.0); Platelet Count 293 10^3/uL (130-400); RBC 3.94 10^6/uL (3.93-5.22); RDW 14.7 % (11.7-14.6); RDW-SD 47.1 fL; WBC 11.47 10^3/uL (4.4-10.8)
[2021-11-22] MEDS: VEDOLIZUMAB 300 MG in Normal Saline 250 ML 500 MG IVPB (09:50)
[2021-11-22] MEDS: Normal Saline Flush 10 ML SYR IVP (09:50)
[2021-11-22 10:00] LABS: ALT 33 U/L (14-59); AST 22 U/L (15-37); Alkaline Phosphatase 91 U/L (46-116); Anion Gap 11.9 mmol/L (3-11); BUN 15 mg/dL (7-18); Bilirubin, Direct 0.1 mg/dL (0.0-0.2); Bilirubin, Total 0.2 mg/dL (0.2-1.0); CO2 22.1 mmol/L (21.0-32.0); CREATININE 0.7 mg/dL (0.55-1.02); Calcium 8.9 mg/dL (8.5-10.1); Chloride 104 mmol/L (98-107); Glucose 94 mg/dL (74-106); Potassium 3.5 mmol/L (3.5-5.1); Sodium 138 mmol/L (136-145); Total Protein 8.2 g/dL (6.4-8.2)
[2021-11-22 10:01] LABS: C-Reactive Protein < 0.05 mg/dL (0.0-0.3)
[2021-11-22 10:04] LABS: Iron 79 ug/dL (50-170); Total Iron Binding Capacity 510 ug/dL (250-450); Transferrin Sat 15 % (15-50)
[2021-11-22 10:37] LABS: Ferritin 36 ng/mL (8-252); Vitamin B12 407 pg/mL (193-986)
[2021-11-23 05:02] LABS: Vitamin D 25 Total 12.3 ng/mL (30-100)
== END 2021-12-17 23:59 | disposition home or self-care (01) ==
LOC: INF 02:28
PROVIDERS: Family Medicine; PCP Nurse Practitioner Family; Visit Provider Internal Medicine
DX: M81.0 Age-related osteoporosis without current pathological fracture (principal); D64.9 Anemia, unspecified; I10 Essential (primary) hypertension; K50.90 Crohn's disease, unspecified, without complications; E53.8 Deficiency of other specified B group vitamins
CPT/HCPCS: 36415; 80053; 80076; 82306; 85027; 96365; 82607; 82728; 83540; 83550; 86140; J3380

== ENCOUNTER 2022-01-17 02:22 | Outpatient (RCR) | payer MEDICARE, MEDICAID, SELFPAY ==
[2022-01-17] MEDS: Normal Saline Flush 10 ML SYR IVP (09:18)
[2022-01-17] MEDS: VEDOLIZUMAB 300 MG in Normal Saline 250 ML 500 MG IVPB (09:36)
== END 2022-01-17 23:59 | disposition home or self-care (01) ==
LOC: INF 02:22
PROVIDERS: PCP Nurse Practitioner Family; Visit Provider Internal Medicine
DX: K50.90 Crohn's disease, unspecified, without complications (principal)
CPT/HCPCS: 96365; J3380

== ENCOUNTER 2022-02-16 08:36 | Outpatient (REF) | payer MEDICARE, MEDICAID, SELFPAY ==
[2022-02-16 10:33] LABS: Creatinine,Urine 25.43 mg/dL
[2022-02-16 10:46] LABS: Creatinine,24hr Ur 0.56 g/24hr (0.60-1.80); Total Volume 2200 ml
[2022-02-17 09:08] LABS: Calcium Urine 2.8 mg/dL (See Note); Calcium Urine 24 hr 62 mg/24hrs (100-300); Timed Urine Volume 2200 mL
== END 2022-02-16 08:37 | disposition home or self-care (01) ==
LOC: LBN 08:36
PROVIDERS: Internal Medicine; PCP Nurse Practitioner Family; Visit Provider Student in an Organized Health Care Education/Training Program
DX: E55.9 Vitamin D deficiency, unspecified (principal)
CPT/HCPCS: 81050; 82340; 82570

== ENCOUNTER 2022-03-14 02:51 | Outpatient (RCR) | payer MEDICARE, MEDICAID, SELFPAY ==
[2022-03-14] MEDS: Normal Saline Flush 10 ML SYR IVP (09:35)
[2022-03-14] MEDS: VEDOLIZUMAB 300 MG in Normal Saline 250 ML 500 MG IVPB (09:35)
[2022-03-14 09:45] LABS: HCT 33.4 % (36.0-46.0); HGB 10.9 g/dL (11.2-15.7); MCH 29.3 pg (27.0-33.0); MCHC 32.6 % (32.0-36.0); MCV 90 fL (80-95); MPV 10.7 fL (8.0-11.0); Platelet Count 329 10^3/uL (130-400); RBC 3.72 10^6/uL (3.93-5.22); RDW 14.5 % (11.7-14.6); RDW-SD 47.7 fL
[2022-03-14 10:03] LABS: ALT 30 U/L (14-59); AST 23 U/L (15-37); Albumin 4.2 g/dL (3.4-5.0); Alkaline Phosphatase 84 U/L (46-116); Bilirubin, Direct 0.1 mg/dL (0.0-0.2); Bilirubin, Total 0.3 mg/dL (0.2-1.0); C-Reactive Protein 0.11 mg/dL (0.0-0.3); Total Protein 8.3 g/dL (6.4-8.2)
== END 2022-03-19 23:59 | disposition home or self-care (01) ==
LOC: INF 02:51
PROVIDERS: Internal Medicine Gastroenterology; PCP Nurse Practitioner Family; Visit Provider Internal Medicine
DX: K50.90 Crohn's disease, unspecified, without complications (principal)
CPT/HCPCS: 36415; 80076; 85027; 96365; 86140; J3380

== ENCOUNTER 2022-04-07 07:03 | Emergency (ER) | payer MEDICARE, MEDICAID, SELFPAY ==
--- NOTE | 2022-04-07 07:15 | DI.RAD_ITS ---
Exam(s) XR PORTABLE CHEST AP EXAM: XR PORTABLE CHEST AP CLINICAL HISTORY: cough, eval for pneumonia. TECHNIQUE: 2D digital imaging was performed. COMPARISON: CR CHEST 2 VIEWS PA,LAT from 04/09/2015 FINDINGS: LUNGS: Clear. No pleural abnormality seen. HEART: Normal. MEDIASTINUM: Normal. OTHER FINDINGS: None. IMPRESSION: No acute pulmonary findings. DATA REPOSITORY: RADIATION DOSE DELIVERED: Total DLP
[2022-04-07 07:20] VITALS: BP 138/81; PULSE 73; RESP 18; TEMP 36.2; O2SAT 99
--- NOTE | 2022-04-07 07:30 | ED.GENADUL_ITS ---
Discharge Plan Discharge Details Chief Complaint: GenMedical Primary Care Provider: Bhargavi Lombardo ED Provider: Howard Cameron Home Meds and New Rx's Prescriptions: No Action nitrofurantoin monohyd/m-cryst [Macrobid] 100 mg capsule 100 mg PO BID Qty: 14 0RF Rx Instructions: must administer with a meal/food dexlansoprazole [Dexilant] 60 mg capsule,biphase delayed releas 60 mg PO DAILY multivitamin [One Daily] 1 EACH tablet 1 ea PO DAILY acetaminophen [Tylenol] 325 MG tablet 325 mg PO PRN vitamin B complex [B-Complex] 1 EACH tablet 1 ea PO DAILY cyanocobalamin (vitamin B-12) 1,000 MCG/1 ML solution 1,000 mcg IJ QMONTH Qty: 1 Entyvio 300 mg recon soln 300 mg IV Q8W Qty: 1 0RF Rx Instructions: administer over 30 mins/ ordered by [facility] [place] GAstro/replacing Remicade re:side effects/ no sent amlodipine 10 mg tablet 10 mg PO DAILY Qty: 90 3RF fluticasone propionate [Flonase Allergy Relief] 50 mcg/actuation spray,suspension 1 spray intranasal DAILY 90 Days Qty: 48 4RF Rx Instructions: administer into each nostril ferrous gluconate 324 mg (37.5 mg iron) tablet 324 mg PO BID Qty: 180 3RF cholestyramine (with sugar) [Questran] 4 gram powder See Rx Instructions PO BID Label Comments: 0.25 scoop PO DAILY; Rx Instructions: 0.25 scoop PO twice a day; ergocalciferol (vitamin D2) 1,250 mcg (50,000 unit) capsule 50,000 unit PO QWEEK Qty: 12 1RF Medical Decision Making 76-year-old female with a past medical history of psoriasis, hypertension, tonsillectomy, adenoidectomy, mastoidectomy who is on q. 8 week vedolizumab who presents today for evaluation of cough, runny nose and congestion and mild sore throat. Symptoms have been present for the last 2 weeks. She has received her COVID and flu vaccines. She admits to mild cough. No hemoptysis. She admits to mild low-grade fevers at home intermittently. She denies chest pain or shortness of breath. She has other family contacts at home with similar symptoms. No other complaints at this time. No other modifying factors Exam demonstrates well-appearing female, no erythema in the posterior oropharynx. Vital signs are notably stable. Lung sounds are clear. Differential includes mild pneumonia versus viral etiology causing prolonged postnasal drip. We will get an x-ray to rule out pneumonia, we will test for COVID/flu/RSV. Patient will be signed out to my colleague Dr. Tommy Gallegos for follow-up on x-ray. I would have a low threshold for starting antibiotics on the patient, and I think loratadine would probably also be helpful on an outpatient basis to help with the postnasal drip Sign Out Yes HPI General Date/Time Provider Initiated Documentation: 04/07/22 07:05 . HPI Narrative: 76-year-old female with a past medical history of psoriasis, hypertension, tonsillectomy, adenoidectomy, mastoidectomy who is on q. 8 week vedolizumab who presents today for evaluation of cough, runny nose and congestion and mild sore throat. Symptoms have been present for the last 2 weeks. She has received her COVID and flu vaccines. She admits to mild cough. No hemoptysis. She admits to mild low-grade fevers at home intermittently. She denies chest pain or shortness of breath. She has other family contacts at home with similar symptoms. No other complaints at this time. No other modifying factors Related Data Home Medications Medication Instructions Recorded Confirmed acetaminophen 325 mg tablet 325 mg PO PRN 12/10/12 04/07/22 (Tylenol) multivitamin (One Daily tablet) 1 ea PO DAILY 12/10/12 04/07/22 vitamin B complex (B-Complex 1 ea PO DAILY 12/10/12 04/07/22 tablet) cyanocobalamin (vitamin B-12) 1,000 mcg IJ QMONTH #1 vial 11/14/17 04/07/22 1,000 mcg/mL injection solution vedolizumab 300 mg intravenous 300 mg IV Q8W #1 ea 03/09/19 04/07/22 solution (Entyvio) dexlansoprazole 60 mg 60 mg PO DAILY 05/05/20 04/07/22 capsule,biphase delayed release (Dexilant) amlodipine 10 mg tablet 10 mg PO DAILY #90 tabs 06/20/21 04/07/22 fluticasone propionate 50 1 spray intranasal DAILY 90 days 06/26/21 04/07/22 mcg/actuation nasal #48 grams spray,suspension (Flonase Allergy Relief) ferrous gluconate 324 mg (37.5 mg 324 mg PO BID #180 tabs 07/24/21 04/07/22 iron) tablet cholestyramine (with sugar) 4 gram See Rx Instructions PO BID 08/30/21 04/07/22 oral powder (Questran) nitrofurantoin 100 mg PO BID #14 caps 11/02/21 04/07/22 monohydrate/macrocrystals 100 mg capsule (Macrobid) ergocalciferol (vitamin D2) 1,250 50,000 unit PO QWEEK #12 caps 03/12/22 04/07/22 mcg (50,000 unit) capsule Previous Rx's Medication Instructions Recorded vedolizumab 300 mg intravenous 300 mg IV Q8W #1 ea 03/09/19 solution (Entyvio) amlodipine 10 mg tablet 10 mg PO DAILY #90 tabs 06/20/21 fluticasone propionate 50 1 spray intranasal DAILY 90 days 06/26/21 mcg/actuation nasal #48 grams spray,suspension (Flonase Allergy Relief) ferrous gluconate 324 mg (37.5 mg 324 mg PO BID #180 tabs 07/24/21 iron) tablet nitrofurantoin 100 mg PO BID #14 caps 11/02/21 monohydrate/macrocrystals 100 mg capsule (Macrobid) ergocalciferol (vitamin D2) 1,250 50,000 unit PO QWEEK #12 caps 03/12/22 mcg (50,000 unit) capsule Allergies Allergy/AdvReac Type Severity Reaction Status Date / Time latex Allergy Severe SKIN RASH; Verified 04/07/22 07:27 BLISTERS infliximab [From Remicade] Allergy Intermediate Flushing, Verified 04/07/22 07:27 puffiness in face metronidazole [From Flagyl] Allergy Intermediate RASH Verified 04/07/22 07:27 esomeprazole Allergy Unknown UPPER BODY Verified 04/07/22 07:27 RASH Iodinated Contrast Media Allergy Unknown Verified 04/07/22 07:27 [Iodinated Contrast- Oral and IV Dye] Sulfa (Sulfonamide Allergy Unknown Verified 04/07/22 07:27 Antibiotics) clindamycin AdvReac Severe GI UPSET Verified 04/07/22 07:27 azithromycin AdvReac Intermediate gi intol. Verified 04/07/22 07:27 diarrhea goas bloating cramps potassium clavulanate AdvReac Intermediate diarrhea Verified 04/07/22 07:27 [From Augmentin] omeprazole AdvReac Mild NAUSEA Verified 04/07/22 07:27 General Stated Complaint: GenMedical CAPRICE: 4 Review of Systems All systems reviewed & are unremarkable except as noted in HPI and below PFSH All Active Problems Vitamin D deficiency (Acute) Heart murmur (Acute) 2020-early systolic, consistent with innocent murmur Psoriasis (Chronic) Diagnosed 2019 at [facility], followed by dermatology at [facility]-nearly resolved as of 04/2021 Anemia (Chronic) chronic 04/2021- iron deficiency Mixed conductive and sensorineural hearing loss of right ear with restricted hearing of left ear (Acute) hearing aid Small bowel obstruction (Acute) hx of multiple obstructions, last-09/2019 requiring surgery at [facility] Low back pain (Acute) GERD (gastroesophageal reflux disease) (Chronic) Chronic rhinitis (Acute) HTN (hypertension) (Chronic) Postconcussion syndrome (Acute) Fracture of proximal end of right humerus (Acute 08/21/18) Osteoporosis (Chronic) no biophosphonates bc GI problems/Dexa. in Odynophagia (Chronic 02/16/16) CT scan neck: negative except very long styloid processes/ symptoms poss. sec to trigeminal neuralgia History of tobacco use (Chronic) [id number] remotely Crohn's disease (Chronic) last colonoscopy: : [facility] [place] Dr. Ruano colono: : normal / on Imuran and Remicade 2014/ [facility] [place] 02/23/2020 - Dr. James at [facility] [place]. +CMV per biopsy Medical History Tick bite Spring 2021 patient with embedded tick-treated empiric possible Lyme, no sequelae Surgical History Hemicolectomy ruptured appendix; abcess (RIGHT) Ligation of fallopian tube MASTOIDECTOMY Tonsillectomy and adenoidectomy Family History Mother , 69 Diabetes Stroke Father , 60 Myocardial infarction Sister , 70 No problems noted. Sister Crohn's disease Sister No problems noted. Maternal Grandfather No problems noted. Paternal Grandfather No problems noted. Maternal Grandmother No problems noted. Paternal Grandmother No problems noted. Daughter No problems noted. Daughter No problems noted. Social History Smoking/Tobacco Use Status: Former Tobacco Use tobacco type: cigarettes Quit Date: 05/20/79 Tobacco: How many years used: 15 Smoking risk assessment performed?: Yes Alcohol Intake: current Alcohol Intake frequency: a few times a month Alcohol type: beer Drug use: Never Substance use type: does not use Counseling provided: none Caregiver/Support person: No Household members: none Housing: house Communication Needs: Hard of Hearing Pets and animals: No Sexually active: No Do you think of yourself as: straight/heterosexual Current gender identity: female What is your relationship status?: How often do you talk on the phone with friends or family?: three or more times per week How often do you get together with friends or relatives?: once per week Do you belong to any clubs or organized social groups?: no Panel score (0-1 are the most socially isolated patients): 1 What type of physical activity do you participate in: walking and yoga Duration: 45-60 minutes/day Frequency: daily Oma/Samaritan: Evangelical Special oma needs: No Seatbelt use: always Drive 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 3.ENT: Atraumatic external nose and ears. Moist MM. Neck: Symmetric, trachea midline, No thyromegaly. No erythema in the posterior oropharynx. 4.CVS: +S1/S2, No murmurs or gallops. Peripheral pulses 2+ and equal in all extremities. Brisk capillary refill in all extremities. 5.RESP: Unlabored respiratory effort. Clear to auscultation bilaterally. No wheezes rales or rhonchi 6.GI: Soft, Nontender/Nondistended, No hepatosplenomegaly. No guarding or rebound. 7.MSK: Normocephalic/Atraumatic, Extremities w/o deformity or ttp No cyanosis or clubbing, Normal movement of all extremities 8.Skin: Warm, Dry. No rashes or lesions. 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 Sensation grossly intact, no focal neurologic deficits. 10.Psych: (AAO) x3. Appropriate mood and affect Course Vital Signs Vital signs: Vital Signs Temperature 36.2 C L 04/07/22 07:20 Pulse 73 04/07/22 07:20 Respiratory Rate 18 04/07/22 07:20 Blood Pressure 138/81 04/07/22 07:20 Pulse Oximetry 99 04/07/22 07:20 Temperature 36.2 C L 04/07/22 07:20 Temperature Source Temporal Artery Scan 04/07/22 07:20 Pulse 73 04/07/22 07:20 Respiratory Rate 18 04/07/22 07:20 Respiratory Effort Non-Labored 04/07/22 07:28 Blood Pressure 138/81 04/07/22 07:20 Blood Pressure Position Sitting 04/07/22 07:20 Pulse Oximetry 99 04/07/22 07:20 Oxygen Delivery Method Room Air 04/07/22 07:20 Oxygen Flow Rate 0 04/07/22 07:20 Pain Level 3 04/07/22 07:20
[2022-04-07 08:14] LABS: COVID-19 PCR Negative (Negative); Influenza A PCR Negative (Negative); Influenza B PCR Negative (Negative); RSV PCR Negative (Negative)
[2022-04-07 08:17] LABS: Source Nasopharynx
--- NOTE | 2022-04-07 08:33 | DI.VRAD_ITS ---
PROCEDURE INFORMATION: Exam: XR Chest Exam date and time: 04/07/2022 7:57 AM Age: 76 years old Clinical indication: Patient HX: Cough, R/O pneumonia TECHNIQUE: Imaging protocol: Radiologic exam of the chest. Views: 1 view. COMPARISON: CR CHEST 2 VIEWS PA,LAT 04/09/2015 9:23 AM FINDINGS: Lungs: Unremarkable. No consolidation. Pleural spaces: Unremarkable. No pleural effusion. No pneumothorax. Heart/Mediastinum: Unremarkable. No cardiomegaly. Bones/joints: Unremarkable. IMPRESSION: No acute findings. Dictated and Authenticated by: Breana Knutson MD. Ordering:KY Lawrence MD
[2022-04-07] MEDS: Doxycycline Hyclate 100 MG CAP PO (09:23)
[2022-04-07] MEDS: Amoxicillin 875/Clav. 125 TAB PO (09:23)
--- NOTE | 2022-04-07 10:59 | ED.PROG_ITS ---
Date of service: 04/07/22 Time of Service: 10:59 Medical Decision Making Resting comfortably no acute distress. Given productive cough over the last 2 weeks have started on antibiotics. No discrete consolidation on x-ray however will treat empirically. Home care instructions and return precautions given. Sign Out No Sign Out Sign Out Data: Sign Out Comment: Cough, runny nose congestion immunosuppressed. Follow-up on x-ray and fluid test. Recommend low threshold for antibiotic initiation and loratadine for home Last updated by Howard Cameron DO at 04/07/22 07:37 Discharge Plan Disposition Patient Disposition: Home Condition: Stable Discharge Details Clinical Impression: Cough Primary Care Provider: Bhargavi Lombardo ED Provider: John Tompkins Home Meds and New Rx's Prescriptions: New amoxicillin-pot clavulanate 875-125 mg tablet 1 tab PO BID 5 Days Qty: 10 0RF doxycycline hyclate 100 mg capsule 100 mg PO BID 7 Days Qty: 14 0RF No Action nitrofurantoin monohyd/m-cryst [Macrobid] 100 mg capsule 100 mg PO BID Qty: 14 0RF Rx Instructions: must administer with a meal/food dexlansoprazole [Dexilant] 60 mg capsule,biphase delayed releas 60 mg PO DAILY multivitamin [One Daily] 1 EACH tablet 1 ea PO DAILY acetaminophen [Tylenol] 325 MG tablet 325 mg PO PRN vitamin B complex [B-Complex] 1 EACH tablet 1 ea PO DAILY cyanocobalamin (vitamin B-12) 1,000 MCG/1 ML solution 1,000 mcg IJ QMONTH Qty: 1 Entyvio 300 mg recon soln 300 mg IV Q8W Qty: 1 0RF Rx Instructions: administer over 30 mins/ ordered by [facility] [place] [place]/replacing Remicade re:side effects/ no sent amlodipine 10 mg tablet 10 mg PO DAILY Qty: 90 3RF fluticasone propionate [Flonase Allergy Relief] 50 mcg/actuation spray,suspension 1 spray intranasal DAILY 90 Days Qty: 48 4RF Rx Instructions: administer into each nostril ferrous gluconate 324 mg (37.5 mg iron) tablet 324 mg PO BID Qty: 180 3RF cholestyramine (with sugar) [Questran] 4 gram powder See Rx Instructions PO BID Label Comments: 0.25 scoop PO DAILY; Rx Instructions: 0.25 scoop PO twice a day; ergocalciferol (vitamin D2) 1,250 mcg (50,000 unit) capsule 50,000 unit PO QWEEK Qty: 12 1RF Discharge Instructions Instructions: Acute Cough (ED) Additional Instructions: Please take medications as prescribed. Please return to the emergency department for any worsening symptoms.
== END 2022-04-07 11:12 | disposition home or self-care (01) ==
PROVIDERS: Student in an Organized Health Care Education/Training Program; Emergency Provider Emergency Medicine; PCP Nurse Practitioner Family
DX: R05.1 Acute cough (principal); R09.89 Other specified symptoms and signs involving the circulatory and respiratory systems; K50.90 Crohn's disease, unspecified, without complications; D84.821 Immunodeficiency due to drugs
CPT/HCPCS: 87637; 99283; 71045

== ENCOUNTER 2022-04-10 03:12 | Outpatient (CLI) | payer MEDICARE, MEDICAID, SELFPAY ==
[2022-04-15 17:07] LABS: 25-Hydroxy D Total 29 ng/mL; 25-Hydroxy D2 19 ng/mL; 25-Hydroxy D3 10 ng/mL
== END 2022-04-10 03:13 | disposition home or self-care (01) ==
LOC: LBO 03:12
PROVIDERS: PCP Nurse Practitioner Family; Visit Provider Student in an Organized Health Care Education/Training Program
DX: E55.9 Vitamin D deficiency, unspecified (principal)
CPT/HCPCS: 36415; 82306; 82397; 82523

== ENCOUNTER 2022-04-27 07:20 | Emergency (ER) | payer MEDICARE, MEDICAID, SELFPAY ==
[2022-04-27 07:29] VITALS: BP 147/70; PULSE 75; RESP 20; TEMP 36.7; O2SAT 95
--- NOTE | 2022-04-27 07:54 | W.ED.GENAD ---
Discharge Plan Disposition Patient Disposition: Home Discharge Details Clinical Impression: Sinusitis Primary Care Provider: Bhargavi Lombardo ED Provider: Jesus Muro Home Meds and New Rx's Prescriptions: New amoxicillin 500 mg capsule 500 mg PO QID Qty: 30 0RF No Action dexlansoprazole [Dexilant] 60 mg capsule,biphase delayed releas 60 mg PO DAILY benzonatate 100 mg capsule 100 - 200 mg PO TID PRN (Reason: cough) Qty: 60 0RF Rx Instructions: Take 1-2 capsules by mouth three times a day as needed for cough multivitamin [One Daily] 1 EACH tablet 1 ea PO DAILY acetaminophen [Tylenol] 325 MG tablet 325 mg PO PRN vitamin B complex [B-Complex] 1 EACH tablet 1 ea PO DAILY cyanocobalamin (vitamin B-12) 1,000 MCG/1 ML solution 1,000 mcg IJ QMONTH Qty: 1 Entyvio 300 mg recon soln 300 mg IV Q8W Qty: 1 0RF Rx Instructions: administer over 30 mins/ ordered by [facility] GA[place]/replacing Remicade re:side effects/ no sent amlodipine 10 mg tablet 10 mg PO DAILY Qty: 90 3RF fluticasone propionate [Flonase Allergy Relief] 50 mcg/actuation spray,suspension 1 spray intranasal DAILY 90 Days Qty: 48 4RF Rx Instructions: administer into each nostril ferrous gluconate 324 mg (37.5 mg iron) tablet 324 mg PO BID Qty: 180 3RF cholestyramine (with sugar) [Questran] 4 gram powder See Rx Instructions PO BID Label Comments: 0.25 scoop PO DAILY; Rx Instructions: 0.25 scoop PO twice a day; ergocalciferol (vitamin D2) 1,250 mcg (50,000 unit) capsule 50,000 unit PO QWEEK Qty: 12 1RF Discharge Instructions Instructions: Sinusitis (ED) Additional Instructions: Please continue taking all your regular medication. Make sure you remain well-hydrated. You may take Tylenol Motrin for fevers or for headaches Medical Decision Making The patient viral swab is negative. She does have symptomatology consistent with sinusitis. She is adamant that she requires antibiotics. I have tried to persuade her not to but I will prescribe some amoxicillin for her. Sign Out No HPI General Date/Time Provider Initiated Documentation: 04/27/22 07:54. HPI Narrative: 76-year-old lady presented to the emergency room for evaluation of sinus pressure and headache. States that its been going on for approximately 3 weeks. Both her and her daughter were ill mid March. At that time she was given some antibiotics which helped with the symptoms. She returned to the emergency department for further evaluation since sinus headaches return. She also has a bad taste in her mouth. She has had no fevers no chills. She states that when she takes Tylenol Motrin it helps with the headache. Normal appetite no weight loss. No shortness of breath. No productive cough. No nausea no vomiting. No abdominal pain. Related Data Home Medications Medication Instructions Recorded Confirmed acetaminophen 325 mg tablet 325 mg PO PRN 12/10/12 04/27/22 (Tylenol) multivitamin (One Daily tablet) 1 ea PO DAILY 12/10/12 04/27/22 vitamin B complex (B-Complex 1 ea PO DAILY 12/10/12 04/27/22 tablet) cyanocobalamin (vitamin B-12) 1,000 mcg IJ QMONTH #1 vial 11/14/17 04/27/22 1,000 mcg/mL injection solution vedolizumab 300 mg intravenous 300 mg IV Q8W #1 ea 03/09/19 04/27/22 solution (Entyvio) dexlansoprazole 60 mg 60 mg PO DAILY 05/05/20 04/27/22 capsule,biphase delayed release (Dexilant) amlodipine 10 mg tablet 10 mg PO DAILY #90 tabs 06/20/21 04/27/22 fluticasone propionate 50 1 spray intranasal DAILY 90 days 06/26/21 04/27/22 mcg/actuation nasal #48 grams spray,suspension (Flonase Allergy Relief) ferrous gluconate 324 mg (37.5 mg 324 mg PO BID #180 tabs 07/24/21 04/27/22 iron) tablet cholestyramine (with sugar) 4 gram See Rx Instructions PO BID 08/30/21 04/27/22 oral powder (Questran) ergocalciferol (vitamin D2) 1,250 50,000 unit PO QWEEK #12 caps 03/12/22 04/27/22 mcg (50,000 unit) capsule benzonatate 100 mg capsule 100 - 200 mg PO TID PRN cough #60 04/23/22 04/27/22 caps amoxicillin 500 mg capsule 500 mg PO QID #30 caps 04/27/22 Previous Rx's Medication Instructions Recorded vedolizumab 300 mg intravenous 300 mg IV Q8W #1 ea 03/09/19 solution (Entyvio) amlodipine 10 mg tablet 10 mg PO DAILY #90 tabs 06/20/21 fluticasone propionate 50 1 spray intranasal DAILY 90 days 06/26/21 mcg/actuation nasal #48 grams spray,suspension (Flonase Allergy Relief) ferrous gluconate 324 mg (37.5 mg 324 mg PO BID #180 tabs 07/24/21 iron) tablet ergocalciferol (vitamin D2) 1,250 50,000 unit PO QWEEK #12 caps 03/12/22 mcg (50,000 unit) capsule benzonatate 100 mg capsule 100 - 200 mg PO TID PRN cough #60 04/23/22 caps amoxicillin 500 mg capsule 500 mg PO QID #30 caps 04/27/22 Allergies Allergy/AdvReac Type Severity Reaction Status Date / Time latex Allergy Severe SKIN RASH; Verified 04/27/22 07:36 BLISTERS infliximab [From Remicade] Allergy Intermediate Flushing, Verified 04/27/22 07:36 puffiness in face metronidazole [From Flagyl] Allergy Intermediate RASH Verified 04/27/22 07:36 esomeprazole Allergy Unknown UPPER BODY Verified 04/27/22 07:36 RASH Iodinated Contrast Media Allergy Unknown Verified 04/27/22 07:36 [Iodinated Contrast- Oral and IV Dye] Sulfa (Sulfonamide Allergy Unknown Verified 04/27/22 07:36 Antibiotics) clindamycin AdvReac Severe GI UPSET Verified 04/27/22 07:36 azithromycin AdvReac Intermediate gi intol. Verified 04/27/22 07:36 diarrhea goas bloating cramps potassium clavulanate AdvReac Intermediate diarrhea Verified 04/27/22 07:36 [From Augmentin] omeprazole AdvReac Mild NAUSEA Verified 04/27/22 07:36 General Stated Complaint: RespSymp CAPRICE: 4 PFSH All Active Problems (Updated 04/27/22 @ 09:27 by Jesus Muro MD) Sinusitis (Acute) Cough (Acute) Vitamin D deficiency (Acute) Heart murmur (Acute) 2020-early systolic, consistent with innocent murmur Psoriasis (Chronic) Diagnosed 2019 at [facility], followed by dermatology at [facility]-nearly resolved as of 04/2021 Anemia (Chronic) chronic 04/2021- iron deficiency Mixed conductive and sensorineural hearing loss of right ear with restricted hearing of left ear (Acute) hearing aid Small bowel obstruction (Acute) hx of multiple obstructions, last-09/2019 requiring surgery at [facility] Low back pain (Acute) GERD (gastroesophageal reflux disease) (Chronic) Chronic rhinitis (Acute) HTN (hypertension) (Chronic) Postconcussion syndrome (Acute) Fracture of proximal end of right humerus (Acute 08/21/18) Osteoporosis (Chronic) no biophosphonates bc GI problems/Dexa. in Odynophagia (Chronic 02/16/16) CT scan neck: negative except very long styloid processes/ symptoms poss. sec to trigeminal neuralgia History of tobacco use (Chronic) [id number] remotely Crohn's disease (Chronic) last colonoscopy: : [facility] Dr. Ruano colono: : normal / on Imuran and Remicade 2014/ [facility] 02/23/2020 - Dr. James at [facility]. +CMV per biopsy Medical History Tick bite Spring 2021 patient with embedded tick-treated empiric possible Lyme, no sequelae Surgical History Hemicolectomy ruptured appendix; abcess (RIGHT) Ligation of fallopian tube MASTOIDECTOMY Tonsillectomy and adenoidectomy Family History Mother , 69 Diabetes Stroke Father , 60 Myocardial infarction Sister , 70 No problems noted. Sister Crohn's disease Sister No problems noted. Maternal Grandfather No problems noted. Paternal Grandfather No problems noted. Maternal Grandmother No problems noted. Paternal Grandmother No problems noted. Daughter No problems noted. Daughter No problems noted. Social History Smoking/Tobacco Use Status: Former Tobacco Use tobacco type: cigarettes Quit Date: 05/20/79 Tobacco: How many years used: 15 Smoking risk assessment performed?: Yes Alcohol Intake: current Alcohol Intake frequency: a few times a month Alcohol type: beer Drug use: Never Substance use type: does not use Counseling provided: none Caregiver/Support person: No Household members: none Housing: house Communication Needs: Hard of Hearing Pets and animals: No Sexually active: No Do you think of yourself as: straight/heterosexual Current gender identity: female What is your relationship status?: How often do you talk on the phone with friends or family?: three or more times per week How often do you get together with friends or relatives?: once per week Do you belong to any clubs or organized social groups?: no Panel score (0-1 are the most socially isolated patients): 1 What type of physical activity do you participate in: walking and yoga Duration: 45-60 minutes/day Frequency: daily Oma/Jain: Bahai Special oma needs: No Seatbelt use: always Drive intox or ride w/intox 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 Do you feel safe at home: Yes Do you feel safe in your relationship?: Yes Victim of physical abuse: No Victim of emotional abuse: No Victim of sexual abuse: No Would you like helpful sources: No Exam Narrative Exam Narrative: General: A,A Ox3, Calm, no apparent distress, well developed, pleasant and cooperative Head Size/Shape: normocephalic, atraumatic Eyes Pupils: PERRLA Extraocular Mobility: intact and symmetrical Conjunctiva: non-injected, anicteric, no discharge Ears, Nose, Throat Nares: patent bilaterally Oral Cavity: moist Neck: supple Lymph Nodes: no cervical lymphadenopathy Respiratory Respiratory Effort: no dyspnea Auscultation: clear to auscultation bilaterally, normal breath sounds, no wheezing, no rales/crackles Cardiovascular Heart Auscultation: regular rate and rhythm, normal S1, normal S2, no murmurs, no rubs, no gallops, Pulse Quality: +2 equal bilaterally, location(s) radial Abdomen Inspection and Palpation: soft, non-tender, non-distended, no hepatosplenomegaly Musculoskeletal System Joints, Bones, and Muscles: no deformities Extremities: warm and well-perfused, no cyanosis, capillary refill <2 seconds Skin Skin Inspection: no rash, no lesions, no bruising Neurological Motor: normal tone, normal strength, moving all extremities equally Psychiatric: good insight, good judgement, normal mood and affect Course Vital Signs Vital signs: Vital Signs Temperature 36.7 C 04/27/22 07:29 Pulse 75 04/27/22 07:29 Respiratory Rate 20 04/27/22 07:29 Blood Pressure 147/70 H 04/27/22 07:29 Pulse Oximetry 95 04/27/22 07:29 Temperature 36.7 C 04/27/22 07:29 Temperature Source Oral 04/27/22 07:29 Pulse 75 04/27/22 07:29 Respiratory Rate 20 04/27/22 07:29 Respiratory Effort Non-Labored 04/27/22 07:37 Respiratory Depth Normal 04/27/22 07:37 Blood Pressure 147/70 H 04/27/22 07:29 Blood Pressure Position Sitting 04/27/22 07:29 Pulse Oximetry 95 04/27/22 07:29 Oxygen Delivery Method Room Air 04/27/22 07:29 Oxygen Flow Rate 0 04/27/22 07:29 Pain Level 5 04/27/22 07:29
[2022-04-27 08:47] LABS: COVID-19 PCR Negative (Negative); Influenza A PCR Negative (Negative); Influenza B PCR Negative (Negative); RSV PCR Negative (Negative)
== END 2022-04-27 09:45 | disposition home or self-care (01) ==
PROVIDERS: Emergency Provider Emergency Medicine; PCP Nurse Practitioner Family
DX: J01.90 Acute sinusitis, unspecified (principal)
CPT/HCPCS: 87637; 99283

== ENCOUNTER 2022-05-09 01:34 | Outpatient (RCR) | payer MEDICARE, MEDICAID, SELFPAY ==
[2022-05-09] MEDS: VEDOLIZUMAB 300 MG in Normal Saline 250 ML 500 MG IVPB (09:43)
[2022-05-09] MEDS: Normal Saline Flush 10 ML SYR IVP (09:43)
[2022-05-16 16:11] LABS: Vedolizumab Ab <9.8 ng/mL (<9.8)
== END 2022-05-19 23:59 | disposition home or self-care (01) ==
LOC: INF 01:34
PROVIDERS: PCP Nurse Practitioner Family; Visit Provider Internal Medicine
DX: K50.019 Crohn's disease of small intestine with unspecified complications (principal)
CPT/HCPCS: 36415; 82397; 96365; J3380

== ENCOUNTER 2022-06-06 09:43 | Outpatient (REF) | payer MEDICARE, MEDICAID, SELFPAY ==
[2022-06-08 21:18] LABS: Calprotectin <50.0 mcg/g
== END 2022-06-06 09:44 | disposition home or self-care (01) ==
LOC: LBN 09:43
PROVIDERS: PCP Nurse Practitioner Family; Visit Provider Internal Medicine Gastroenterology
DX: K50.019 Crohn's disease of small intestine with unspecified complications (principal)
CPT/HCPCS: 83993

== ENCOUNTER 2022-06-08 00:05 | Outpatient (CLI) | payer MEDICARE, MEDICAID, SELFPAY ==
--- NOTE | 2022-06-08 | DI.DEXA_ITS ---
Exam(s) XR DEXA BONE DENSITY W/WO GILBERTO EXAM: XR DEXA BONE DENSITY W/WO GILBERTO CLINICAL HISTORY: OSTEOPOROSIS, HX FRAGILITY FRACTURE, M85.821, HYPOVITAMINOSIS D, E55.9 TECHNIQUE: COMPARISON: Comparison is 04/07/2013. FINDINGS: Lateral Spine Image: Unremarkable. No compression deformities identified. Left hip: Total T-Score: -2.8. This compares to -1.6 on the prior examination. Total Z-Score: -0.9 T- and Z-scores: Findings are consistent with osteoporosis. Lumbar Spine: Total T-Score: -5.1. This compares to -4.5 on the prior examination. Total Z-Score: -2.6 T- and Z-scores: Finding are consistent with osteoporosis. IMPRESSION: Findings of osteoporosis.
== END 2022-06-08 00:25 ==
LOC: DI 00:05
PROVIDERS: PCP Nurse Practitioner Family; Visit Provider Student in an Organized Health Care Education/Training Program
DX: M80.021D Age-related osteoporosis with current pathological fracture, right humerus, subsequent encounter for fracture with routine healing (principal); M85.821 Other specified disorders of bone density and structure, right upper arm
CPT/HCPCS: 77080

== ENCOUNTER 2022-06-20 04:22 | Outpatient (CLI) | payer MEDICARE, MEDICAID, SELFPAY ==
[2022-06-20 13:17] LABS: Vitamin D 25 Total 12.9 ng/mL (30-100)
[2022-06-21 12:56] LABS: Beta-CrossLaps (B-CTx) 249 pg/mL
== END 2022-06-20 04:23 | disposition home or self-care (01) ==
PROVIDERS: PCP Nurse Practitioner Family; Visit Provider Student in an Organized Health Care Education/Training Program
DX: M80.021D Age-related osteoporosis with current pathological fracture, right humerus, subsequent encounter for fracture with routine healing (principal)
CPT/HCPCS: 36415; 82306; 82523

== ENCOUNTER 2022-07-09 02:38 | Outpatient (CLI) | payer MEDICARE, MEDICAID, SELFPAY ==
[2022-07-09 12:43] LABS: Hemoglobin A1C 5.5 % (<5.7)
[2022-07-09 12:50] LABS: Calculated LDL 83 mg/dL (<100); Cholesterol 183 mg/dL (<200); HDL Cholesterol 85 mg/dL (40-60); Triglyceride 79 mg/dL (<150)
== END 2022-07-09 02:39 | disposition home or self-care (01) ==
LOC: LOS 02:38
PROVIDERS: PCP Nurse Practitioner Family; Visit Provider Nurse Practitioner Family
DX: E78.5 Hyperlipidemia, unspecified (principal); R73.01 Impaired fasting glucose
CPT/HCPCS: 36415; 80061; 83036

== ENCOUNTER 2022-08-03 01:50 | Outpatient (CLI) | payer MEDICARE, MEDICAID, SELFPAY ==
[2022-08-03 13:25] LABS: Vitamin D 25 Total 19.6 ng/mL (30-100)
== END 2022-08-03 01:51 | disposition home or self-care (01) ==
PROVIDERS: PCP Nurse Practitioner Family; Visit Provider Student in an Organized Health Care Education/Training Program
DX: M80.021D Age-related osteoporosis with current pathological fracture, right humerus, subsequent encounter for fracture with routine healing (principal)
CPT/HCPCS: 36415; 80076; 82306; 85025; 86140

== ENCOUNTER 2022-08-17 02:01 | Outpatient (CLI) | payer MEDICARE, MEDICAID, SELFPAY ==
[2022-08-17 09:05] LABS: Abs Immature Grans 0.02 10^3/uL (0.0-0.06); Absolute Basophil Count 0.07 10^3/uL (0.0-0.2); Absolute Eosinophil Count 1.12 10^3/uL (0.0-0.7); Absolute Lymphocyte Count 2.24 10^3/uL (1.2-3.4); Absolute Monocyte Count 0.73 10^3/uL (0.1-0.8); Basophils % 0.7; Eosinophils % 11.9; HCT 34.6 % (36.0-46.0); HGB 11.6 g/dL (11.2-15.7); Immature Grans % 0.2; Lymphocytes % 23.9; MCH 29.9 pg (27.0-33.0); MCHC 33.5 % (32.0-36.0); MCV 89 fL (80-95); MPV 11.2 fL (8.0-11.0); Monocytes % 7.8; Neutrophils % 55.5; Platelet Count 240 10^3/uL (130-400); RBC 3.88 10^6/uL (3.93-5.22); RDW 14.1 % (11.7-14.6); RDW-SD 45.6 fL; WBC 9.38 10^3/uL (4.4-10.8)
[2022-08-17 09:30] LABS: ALT 32 U/L (14-59); AST 22 U/L (15-37); Alkaline Phosphatase 73 U/L (46-116); Anion Gap 11.4 mmol/L (3-11); BUN 14 mg/dL (7-18); Bilirubin, Direct 0.1 mg/dL (0.0-0.2); Bilirubin, Total 0.3 mg/dL (0.2-1.0); C-Reactive Protein 0.06 mg/dL (0.0-0.3); CO2 23.6 mmol/L (21.0-32.0); CREATININE 0.8 mg/dL (0.55-1.02); Calcium 8.8 mg/dL (8.5-10.1); Chloride 104 mmol/L (98-107); Estimated GFR 75.37 (mL/min/1.73m2); Glucose 98 mg/dL (74-106); Potassium 3.2 mmol/L (3.5-5.1); Sodium 139 mmol/L (136-145); Total Protein 7.9 g/dL (6.4-8.2)
[2022-08-17 11:03] LABS: Vitamin D 25 Total 27.8 ng/mL (30-100)
== END 2022-08-17 02:02 | disposition home or self-care (01) ==
LOC: LBO 02:01
PROVIDERS: PCP Nurse Practitioner Family; Visit Provider Student in an Organized Health Care Education/Training Program
DX: K50.019 Crohn's disease of small intestine with unspecified complications (principal); E55.9 Vitamin D deficiency, unspecified
CPT/HCPCS: 36415; 80048; 80076; 82306; 82040; 85025; 86140

== ENCOUNTER 2022-08-21 02:08 | Outpatient (CLI) | payer MEDICARE, MEDICAID, SELFPAY ==
--- NOTE | 2022-08-21 07:00 | DI.RAD_ITS ---
Exam(s) XR KNEE LT 3V AP,LAT,RAVEN EXAM: XR KNEE LT 3V AP,LAT,RAVEN CLINICAL HISTORY: pain along medial aspect, no trauma,M25.562. TECHNIQUE: 2D digital imaging was performed. Three views. COMPARISON: No exams were available for comparison FINDINGS: BONES: No acute fracture is present. No bony destructive lesion is seen. Minimal enthesophyte at t he quadriceps insertion on the patella. JOINTS: The knee is normally aligned. No joint effusion is seen. Mild narrowing medial femoral tibial joint space. No significant periarticular spurring. SOFT TISSUE: Vascular calcifications. IMPRESSION: Mild degenerative changes. DATA REPOSITORY: RADIATION DOSE DELIVERED:
== END 2022-08-21 02:28 ==
LOC: DI 02:09
PROVIDERS: PCP Nurse Practitioner Family; Visit Provider Nurse Practitioner Family
DX: M25.562 Pain in left knee (principal); M25.862 Other specified joint disorders, left knee; M76.52 Patellar tendinitis, left knee
CPT/HCPCS: 73562

== ENCOUNTER 2022-09-14 01:04 | Outpatient (CLI) | payer MEDICARE, MEDICAID, SELFPAY | END 2022-09-14 01:05 | disposition home or self-care (01) | LOC: LOS 01:04 | PROVIDERS: PCP Nurse Practitioner Family; Visit Provider Nurse Practitioner Family | DX: E87.6 Hypokalemia (principal) | CPT/HCPCS: 36415; 84132 ==

== ENCOUNTER 2022-09-27 02:55 | Outpatient (CLI) | payer MEDICARE, MEDICAID, SELFPAY ==
[2022-09-27 10:30] LABS: Vitamin D 25 Total 29.5 ng/mL (30-100)
== END 2022-09-27 02:56 | disposition home or self-care (01) ==
LOC: LBO 02:55
PROVIDERS: PCP Nurse Practitioner Family; Visit Provider Student in an Organized Health Care Education/Training Program
DX: E55.9 Vitamin D deficiency, unspecified (principal)
CPT/HCPCS: 36415; 80076; 82306; 85025; 86140

== ENCOUNTER 2022-10-17 04:33 | Outpatient (CLI) | payer MEDICARE, MEDICAID, SELFPAY ==
[2022-10-17 15:50] LABS: Calcium 9.1 mg/dL (8.5-10.1)
[2022-10-17 16:20] LABS: Vitamin D 25 Total 31.1 ng/mL (30-100)
== END 2022-10-17 04:34 | disposition home or self-care (01) ==
LOC: LBO 04:33
PROVIDERS: PCP Nurse Practitioner Family; Visit Provider Student in an Organized Health Care Education/Training Program
DX: E55.9 Vitamin D deficiency, unspecified (principal)
CPT/HCPCS: 36415; 82306; 82040; 82310

== ENCOUNTER 2022-10-18 11:50 | Outpatient (REF) | payer MEDICARE, MEDICAID, SELFPAY ==
[2022-10-18 16:01] LABS: Creatinine,Urine 38.59 mg/dL
[2022-10-18 16:04] LABS: Creatinine,24hr Ur 0.77 g/24hr (0.60-1.80); Total Volume 2050 ml
[2022-10-19 10:00] LABS: Calcium Urine 3.1 mg/dL (See Note); Calcium Urine 24 hr 64 mg/dL (100-300); Timed Urine Volume 2050 mL
== END 2022-10-18 11:51 | disposition home or self-care (01) ==
LOC: LBN 11:50
PROVIDERS: PCP Nurse Practitioner Family; Visit Provider Student in an Organized Health Care Education/Training Program
DX: E55.9 Vitamin D deficiency, unspecified (principal)
CPT/HCPCS: 81050; 82340; 82570

== ENCOUNTER 2022-11-30 02:05 | Outpatient (CLI) | payer MEDICARE, MEDICAID, SELFPAY ==
[2022-11-30 10:14] LABS: Albumin 4.2 g/dL (3.4-5.0); Calcium 9.4 mg/dL (8.5-10.1)
[2022-11-30 10:42] LABS: Vitamin D 25 Total 17.4 ng/mL (30-100)
== END 2022-11-30 02:06 | disposition home or self-care (01) ==
LOC: LBO 02:05
PROVIDERS: PCP Nurse Practitioner Family; Visit Provider Student in an Organized Health Care Education/Training Program
DX: E55.9 Vitamin D deficiency, unspecified (principal)
CPT/HCPCS: 36415; 82306; 82040; 82310

== ENCOUNTER 2022-12-14 00:36 | Outpatient (CLI) | payer MEDICARE, MEDICAID, SELFPAY ==
--- NOTE | 2022-12-14 07:15 | DI.US_ITS ---
Exam(s) US THYROID EXAM: US THYROID CLINICAL HISTORY: Assess size, solitary, TR rating,LT THYROID NODULE,E04.1. TECHNIQUE: Ultrasound thyroid performed using standard protocol. COMPARISON: No exams were available for comparison FINDINGS: ISTHMUS: 2.6 mm RIGHT LOBE: Size: 3.9 x 1.4 x 1.5 cm Echogenicity: Heterogeneous. Vascularity: Normal. Nodules: Several nodules are identified. The 2 largest are a 1 x 0.7 x 1.2 cm mixed cystic and solid isoechoic nodule and a 0.8 x 0.6 x 0.4 cm mixed cystic and solid isoechoic nodule. These are consis tent with TI rads level 2 nodules. No follow-up is recommended. LEFT LOBE: Size: 4.3 x 2.8 x 1.5 cm Echogenicity: Heterogeneous. Vascularity: Normal. Nodules: There is a 3.5 x 2.5 x 2.6 cm mixed cystic and solid nodule. The solid components are isoec hoic. There is a macrocalcification present. This is consistent with a TI rads level 3 nodule. Due to its size, FNA is recommended. OTHER FINDINGS: None. IMPRESSION: TI rads level 3 nodule in the left lobe of the thyroid gland. DATA REPOSITORY:
== END 2022-12-14 00:56 ==
LOC: DI 00:37
PROVIDERS: PCP Nurse Practitioner Family; Visit Provider Otolaryngology
DX: E04.1 Nontoxic single thyroid nodule (principal)
CPT/HCPCS: 76536

== ENCOUNTER 2022-12-28 02:36 | Outpatient (CLI) | payer MEDICARE, MEDICAID, SELFPAY ==
[2022-12-28 09:47] LABS: TSH (W/Ref FT4) 1.26 uIU/mL (0.36-3.74)
[2022-12-28 10:01] LABS: Vitamin D 25 Total 25.2 ng/mL (30-100)
== END 2022-12-28 02:37 | disposition home or self-care (01) ==
LOC: LBO 02:36
PROVIDERS: Student in an Organized Health Care Education/Training Program; PCP Nurse Practitioner Family; Visit Provider Otolaryngology
DX: E04.2 Nontoxic multinodular goiter (principal); E55.9 Vitamin D deficiency, unspecified
CPT/HCPCS: 36415; 82306; 84443

== ENCOUNTER → 2023-01-22 01:58 | Outpatient (CLI) | payer MEDICARE, MEDICAID, SELFPAY ==
--- NOTE | 2023-01-22 07:45 | DI.US_ITS ---
Exam(s) US NEEDLE LOCAL OTHER WO RAD EXAM: US NEEDLE LOCAL OTHER WO RAD CLINICAL HISTORY: TR 3 thyroid nodule meeting criteria for biopsy,ultrasound guided bx,goiter. COMPARISON: US US THYROID from 12/14/2022 TECHNIQUE: Ultrasound guidance was provided for the ENT surgeon 4 FNA left thyroid nodule. FINDINGS: Images reveal the needle in the solid components partially solid-partially cystic nodule. Cine cine acquisitions also performed IMPRESSION: Successful Ultrasound-guided Localization. DATA REPOSITORY:
--- NOTE | 2023-01-22 11:30 | PAPNONF_PTH ---
PATIENT: Toshia Arreola LOC: LAN U#:[id number] AGE/SX: 79/F ROOM: RE01/22/[address]: Maikol Thomas MD : [id number] BED: DIS: SPEC #: [id number] RECD: 01/22/23 13:27 STATUS: RAINE ERWIN #: [id number] JELANI: 01/22/23 11:[address]: Maikol Thomas DEPT: [facility] Cytology RECD BY: Tala Coyle ENTERED: 01/22/23 13:28 SP TYPE: BASIL VIRAMONTES DR: Bhargavi Lombardo, KEELY Tissues: 1 - BODY FLUID CYTO-FINE NEEDLE ASPIRATE[facility] Procedures: BODY FLUID CYTO-FINE NEEDLE ASPIRATE[facility] Comments: [id number] (PATH FNA CONSULT) (REFRIGERATED)
--- NOTE | 2023-01-22 11:38 | W.PROCNOTE ---
Date of service: 01/22/23 Time of Service: 11:39 Procedure Note Date of procedure: 01/22/23 Procedure: Ultrasound-guided FNA, left thyroid nodule, pathology present Surgeon/Proceduralist/Physician: Maikol Thomas Procedure Diagnosis: Left TR 3 thyroid nodule meeting criteria for biopsy Procedure Indications: Patient has a left-sided TR 3 lesion meeting criteria for biopsy. Options were explained to the patient. She wished to undergo the procedure. Consent was filled out and signed prior to the procedure.. Procedure Description: The patient was positioned in supine position and prepped and draped in appropriate fashion. Her neck was slightly extended. Ultrasound was used to localize the left-sided thyroid nodule of concern, and then 1% lidocaine with 1/100,000 epinephrine was injected in the skin and subcutaneous tissues overlying the thyroid nodule. Multiple passes were made with a 25-gauge needle into the thyroid nodule. Cellular adequacy was verified by pathology. 2 additional passes were made for potential Afirma testing. There was no bleeding. The patient tolerated procedure well. A sterile dressing was applied the patient was allowed to sit and stand. She tolerated this procedure well. She will remove the bandage after an hour, and not replace it. She will call with any signs of infection. She will call if she does not hear from me with regard to pathology results by next Saturday. She may use ibuprofen or Tylenol for any discomfort.
== END ==
PROVIDERS: PCP Nurse Practitioner Family; Visit Provider Otolaryngology
DX: E04.2 Nontoxic multinodular goiter (principal); D44.0 Neoplasm of uncertain behavior of thyroid gland
CPT/HCPCS: 10005; 76942; 88104

== ENCOUNTER 2023-01-23 10:11 | Outpatient (REF) | payer MEDICARE, MEDICAID, SELFPAY ==
[2023-01-23 12:23] LABS: C Diff PCR Negative (Negative)
[2023-01-24 10:57] LABS: Campylobacter PCR Negative (Negative); Salmonella PCR Negative (Negative); Shiga Toxin PCR Negative (Negative); Shigella/Enteroinvasive Ecoli Negative (Negative)
[2023-01-25 20:33] LABS: Calprotectin <50.0 mcg/g
== END 2023-01-23 10:12 | disposition home or self-care (01) ==
LOC: LBN 10:11
PROVIDERS: PCP Nurse Practitioner Family; Visit Provider Internal Medicine Gastroenterology
DX: K50.019 Crohn's disease of small intestine with unspecified complications (principal); R19.7 Diarrhea, unspecified
CPT/HCPCS: 87493; 87505; 83993

== ENCOUNTER → 2023-01-23 12:34 | Outpatient (CLI) | payer MEDICARE, MEDICAID, SELFPAY ==
--- NOTE | 2023-01-23 12:15 | DI.US_ITS ---
Exam(s) US LOWER EXTREMITY VENOUS LT EXAM: US LOWER EXTREMITY VENOUS LT CLINICAL HISTORY: eval dvt,lt leg swelling, m79.89 TECHNIQUE: Left lower extremity venous ultrasound performed using grayscale, color-flow, and spectra l Doppler analysis. COMPARISON: US US LOWER EXTREMITY VENOUS LT from 12/28/2019 FINDINGS: The left common femoral, femoral and popliteal veins demonstrate normal compressibility, augmentation , and color Doppler. The posterior tibial and peroneal veins are patent. There is thrombus seen in a superficial vein in the thigh. The saphenofemoral junction, however, is unremarkable. There is no evidence of a Gipson cyst. The soft tissues are unremarkable. IMPRESSION: 1. No evidence of a left lower extremity DVT. 2. Superficial thrombophlebitis. DATA REPOSITORY:
--- NOTE | 2023-01-23 12:45 | DI.RAD_ITS ---
Exam(s) XR ANKLE LT COMPLETE EXAM: XR ANKLE LT COMPLETE CLINICAL HISTORY: evaluate pathology,lt ankle pain, m25.572 TECHNIQUE: 2D digital imaging was performed of the left ankle. Four images were obtained. AP, late ral and oblique views were obtained. COMPARISON: No exams were available for comparison FINDINGS: BONES: No acute fracture is present. No bony destructive lesion is seen. There is an enthesophyte at the posterior calcaneus. There is a small plantar calcaneal spur. JOINTS:The ankle mortise is normally aligned. SOFT TISSUE: Normal. IMPRESSION: No acute abnormality. DATA REPOSITORY: RADIATION DOSE DELIVERED:
== END ==
PROVIDERS: PCP Nurse Practitioner Family; Visit Provider Nurse Practitioner Family
DX: M79.89 Other specified soft tissue disorders (principal); M25.572 Pain in left ankle and joints of left foot
CPT/HCPCS: 73610; 93971

== ENCOUNTER 2023-04-15 03:29 | Outpatient (CLI) | payer MEDICARE, MEDICAID, SELFPAY ==
[2023-04-15 11:55] LABS: Vitamin D 25 Total 18.6 ng/mL (30-100)
[2023-04-15 13:38] LABS: Albumin 4.2 g/dL (3.4-5.0); Calcium 9.6 mg/dL (8.5-10.1)
== END 2023-04-15 03:30 | disposition home or self-care (01) ==
PROVIDERS: PCP Nurse Practitioner Family; Visit Provider Student in an Organized Health Care Education/Training Program
DX: E55.9 Vitamin D deficiency, unspecified (principal)
CPT/HCPCS: 36415; 82306; 82040; 82310

== ENCOUNTER 2023-04-20 09:01 | Emergency (ER) | payer MEDICARE, MEDICAID, SELFPAY ==
[2023-04-20 09:03] VITALS: BP 154/68; PULSE 83; RESP 16; TEMP 36.5; O2SAT 99
--- NOTE | 2023-04-20 09:29 | W.ED.GENAD ---
Discharge Plan Disposition Patient Disposition: Home Discharge Details Clinical Impression: Back pain due to injury Primary Care Provider: Bhargavi Lombardo ED Provider: Ameya Mcadasm Home Meds and New Rx's Prescriptions: New diclofenac sodium 1 % gel 2 g topical QID PRN (Reason: pain) Qty: 100 1RF Rx Instructions: apply to area of pain Continued dexlansoprazole [Dexilant] 60 mg capsule,biphase delayed releas 60 mg PO DAILY loperamide [Imodium A-D] 2 mg capsule 2 mg PO Q6H PRN simethicone [Gas-X Extra Strength] 125 mg capsule 125 mg PO TID-QID PRN cyanocobalamin (vitamin B-12) 1,000 mcg/mL solution 1,000 mcg IJ QMONTH Qty: 1 Entyvio 300 mg recon soln 300 mg IV Q8W ergocalciferol (vitamin D2) [Vitamin D2] 1,250 mcg (50,000 unit) capsule 1,250 mcg PO .Every other day Systane Complete PF 0.6 % drops 1 drp ophthalmic (eye) QID multivitamin [One Daily] 1 EACH tablet 1 ea PO DAILY acetaminophen [Tylenol] 325 MG tablet 325 mg PO PRN vitamin B complex [B-Complex] 1 EACH tablet 1 ea PO DAILY cholestyramine (with sugar) [Questran] 4 gram powder See Rx Instructions PO BID Patient Comments: 0.25 scoop PO DAILY; Rx Instructions: 0.25 scoop PO twice a day; amlodipine 10 mg tablet 10 mg PO DAILY Qty: 90 3RF ferrous gluconate 324 mg (37.5 mg iron) tablet 324 mg PO BID Qty: 180 3RF Discharge Instructions Instructions: Back Pain (ED) Additional Instructions: As discussed if you have any new or significant worsening of symptoms feel free to return the emergency department for reassessment otherwise follow-up with your primary care provider if not improving over the next 1 to 2 weeks. You may continue to perform gentle activities but it is recommended that you minimize lifting more than 5 pounds, bending or twisting type motions. Please continue to use [id number] acetaminophen and [id number] lidocaine creams or patches as directed on packaging for pain. I have also prescribed you a topical NSAID and use as directed. Referrals: Bhargavi Lombardo, [employer] [Primary Care Provider] - 2 weeks (If not improving) Discharge Data Discharge Date/Time-TO BE ENTERED AT DEPARTURE: 04/20/23 10:58 Medical Decision Making Patient presenting to the emergency department for chief complaint of back pain. Patient reports that yesterday she was helping her daughter get off the ground and lift her off and when she was doing this felt a sudden pain in her low back. Patient also states some upper to mid back pain that was exacerbated by this event as well. Patient has significant osteoporosis and recently was told in her upper back that she had compression fractures that she was not aware of. Patient denies any loss of bowel or bladder function, numbness tingling, fever or chills, or other systemic symptoms. She does state that pain is better at rest and worsens mainly with movement. She had been using acetaminophen at home which she said slightly helps but is concerned due to her history of osteoporosis and the significant amount of pain. Other contributing past medical history is history of Crohn's with intermittent bowel obstructions and inability to use NSAIDs. Physical exam shows ambulatory patient with no significant gait dysfunction or instability noted, tenderness to palpation of the upper third of the thoracic spine and the mid lumbar spine. Within the lumbar spinal region there is also some paraspinal tenderness exam is otherwise noncontributory. Given patient's history will perform radiological imaging due to concern of compression fracture. Given history of injury and physical exam I feel that patient is at LOW risk for ABDOMINAL AORTIC ANEURYSM, CAUDA EQUINA SYNDROME, EPIDURAL MASS LESION, SPINAL STENOSIS, OR HERNIATED DISK CAUSING SEVERE STENOSIS. Pending imaging results will give patient acetaminophen and lidocaine patch. Review of radiological imaging and radiologist dictation shows no acute findings or compression fractures noted. Given patient's ambulatory status and stability I do feel that she is an appropriate candidate for outpatient management. Will encourage her to continue to use [id number] acetaminophen, lidocaine patch and I will prescribe diclofenac gel to use additionally. Patient encouraged to follow-up with primary care provider if not improving or return for new or worsening of condition. While patient did have some improvement with the Tylenol and lidocaine patch she is in continued moderate discomfort. Discussed with patient risk first benefit of opioid narcotic. After discussion patient given limited prescription for home use for severe pain only. After discussion of diagnosis and plan of care patient has no further needs, questions, or concerns and states clear understanding to return to the emergency department for any worsening symptoms. This documentation was generated using [email or web address] dictation system, please disregard any oddities of phrase or misspellings. Imaging Data Radiologic Study: Imaging: X-Ray Radiologist's impression: Exam(s) PROCEDURE INFORMATION: Exam: XR Thoracic Spine Exam date and time: 04/20/2023 9:54 AM Age: 77 years old Clinical indication: Other: Back pain TECHNIQUE: Imaging protocol: Radiologic exam of the thoracic spine. Views: 3 views. COMPARISON: CR XR LUMBAR SPINE COMPLETE 04/20/2023 9:53 AM FINDINGS: Bones/joints: Minimal levoscoliosis of the thoracic spine. Vertebral body height is grossly preserved No acute fracture. Soft tissues: Unremarkable. IMPRESSION: No acute findings. Minimal levoscoliosis Radiologic Study #2: Imaging: X-Ray Radiologist's impression: Exam(s) PROCEDURE INFORMATION: Exam: XR Lumbosacral Spine Exam date and time: 04/20/2023 9:53 AM Age: 77 years old Clinical indication: Other: Low back pain TECHNIQUE: Imaging protocol: Radiologic exam of the lumbosacral spine. Views: 4 or 5 views. COMPARISON: CR XR LUMBAR SPINE COMPLETE 08/03/2020 11:16 AM FINDINGS: Bones/joints: Chronic loss of vertebral body height noted No acute fracture. Alignment is grossly maintained. Foraminal stenosis at L5-S1 Soft tissues: Unremarkable. IMPRESSION: No acute findings. Degenerative changes as noted HPI General Mode of arrival: ambulatory. Date/Time Provider Initiated Documentation: 04/20/23 09:02. Limitations to Documentation: no limitations. Information obtained by: patient and RN notes reviewed. History of Present Illness 77 year old F presents to the emergency department with the chief complaint of Back pain, described as moderate, with intensity rated at 8. Quality is described as sharp, and is localized to the back. Patient reports no radiation. Patient started experiencing this day(s) (1) and it has been constant. Rest improves symptom(s), Movement worsens symptoms . Patient notes no other symptoms.. Patient did receive the following treatments prior to arrival, none Related Data Home Medications Medication Instructions Recorded Confirmed acetaminophen 325 mg tablet 325 mg PO PRN 12/10/12 04/20/23 (Tylenol) multivitamin (One Daily tablet) 1 ea PO DAILY 12/10/12 04/20/23 vitamin B complex (B-Complex 1 ea PO DAILY 12/10/12 04/20/23 tablet) dexlansoprazole 60 mg 60 mg PO DAILY 05/05/20 04/20/23 capsule,biphase delayed release (Dexilant) cholestyramine (with sugar) 4 gram See Rx Instructions PO BID 08/30/21 04/20/23 oral powder (Questran) amlodipine 10 mg tablet 10 mg PO DAILY #90 tabs 06/22/22 04/20/23 cyanocobalamin (vitamin B-12) 1,000 mcg IJ QMONTH #1 vial 06/27/22 04/20/23 1,000 mcg/mL injection solution loperamide 2 mg capsule (Imodium 2 mg PO Q6H PRN 06/27/22 04/20/23 A-D) simethicone 125 mg capsule (Gas-X 125 mg PO TID-QID PRN 06/27/22 04/20/23 Extra Strength) vedolizumab 300 mg intravenous 300 mg IV Q8W 06/27/22 04/20/23 solution (Entyvio) ferrous gluconate 324 mg (37.5 mg 324 mg PO BID #180 tabs 07/20/22 04/20/23 iron) tablet ergocalciferol (vitamin D2) 1,250 1,250 mcg PO .Every other day 01/18/23 04/20/23 mcg (50,000 unit) capsule (Vitamin D2) propylene glycol (PF) 0.6 % eye 1 drp ophthalmic (eye) QID 01/18/23 04/20/23 drops (Systane Complete PF) diclofenac sodium 1 % topical gel 2 g topical QID PRN pain #100 grams 04/20/23 Previous Rx's Medication Instructions Recorded amlodipine 10 mg tablet 10 mg PO DAILY #90 tabs 06/22/22 ferrous gluconate 324 mg (37.5 mg 324 mg PO BID #180 tabs 07/20/22 iron) tablet diclofenac sodium 1 % topical gel 2 g topical QID PRN pain #100 grams 04/20/23 Allergies Allergy/AdvReac Type Severity Reaction Status Date / Time latex Allergy Severe SKIN RASH; Verified 04/20/23 09:07 BLISTERS infliximab [From Remicade] Allergy Intermediate Flushing, Verified 04/20/23 09:07 puffiness in face metronidazole [From Flagyl] Allergy Intermediate RASH Verified 04/20/23 09:07 esomeprazole Allergy Unknown UPPER BODY Verified 04/20/23 09:07 RASH Iodinated Contrast Media Allergy Unknown Verified 04/20/23 09:07 [Iodinated Contrast- Oral and IV Dye] Sulfa (Sulfonamide Allergy Unknown Verified 04/20/23 09:07 Antibiotics) clindamycin AdvReac Severe GI UPSET Verified 04/20/23 09:07 azithromycin AdvReac Intermediate gi intol. Verified 04/20/23 09:07 diarrhea goas bloating cramps potassium clavulanate AdvReac Intermediate diarrhea Verified 04/20/23 09:07 [From Augmentin] omeprazole AdvReac Mild NAUSEA Verified 04/20/23 09:07 tymlos AdvReac Intermediate Skin Rash Uncoded 04/20/23 09:07 General Stated Complaint: Nk/Back Pain CAPRICE: 4 Review of Systems Constitutional Constitutional: Denies chills and Denies fever(s) Gastrointestinal Gastrointestinal: Denies abdominal pain, Denies diarrhea and Denies vomiting Genitourinary Genitourinary: Denies urinary incontinence Musculoskeletal Musculoskeletal: Reports as per HPI and Reports back pain Neurologic Neurologic: Denies sensory deficit PFSH All Active Problems (Updated 04/20/23 @ 10:34 by Ameya Mcadams NP) Back pain due to injury (Acute) Otalgia, left ear (Acute) Wears hearing aid in both ears (Acute) Multinodular thyroid (Acute) Left thyroid nodule (Acute) Crohn's disease (Chronic) Followed by [facility] GI Osteoporosis (Chronic) Dexa 2022. 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 Lysis of adhesions 2009. Ileocolic resection 2011, repeated 2020 History of bilateral tubal ligation S/P tonsillectomy and adenoidectomy Family History Mother , 69 Diabetes Stroke Father , 60 Myocardial infarction Heart disease Colitis Not sure if crohn's or UC but had part of his colon removed Sister , 70 No problems noted. Sister Crohn's disease Sister No problems noted. Maternal Grandfather No problems noted. Paternal Grandfather No problems noted. Maternal Grandmother No problems noted. Paternal Grandmother No problems noted. Daughter No problems noted. Daughter No problems noted. Daughter Down syndrome Collagenous colitis Social History Smoking/Tobacco Use Status: Former Tobacco Use tobacco type: cigarettes Quit Date: 05/20/79 Tobacco: How many years used: 20 Smoking risk assessment performed?: Yes Alcohol Intake: current Alcohol Intake frequency: a few times a month Alcohol type: beer Drug use: Never Substance use type: does not use Counseling provided: none Caregiver/Support person: No Household members: none Housing: house Communication Needs: Hard of Hearing Pets and animals: No Sexually active: No Do you think of yourself as: straight/heterosexual Current gender identity: female What is your relationship status?: How often do you talk on the phone with friends or family?: three or more times per week How often do you get together with friends or relatives?: once per week Do you belong to any clubs or organized social groups?: no Panel score (0-1 are the most socially isolated patients): 1 What type of physical activity do you participate in: walking and yoga Duration: 45-60 minutes/day Frequency: daily Oma/Alevism: Buddhism Special oma needs: No Seatbelt use: always Drive intox or ride w/intox power screwdriver operator: No Do you feel safe at home: Yes Do you feel safe in your relationship?: Yes Victim of physical abuse: No Victim of emotional abuse: No Victim of sexual abuse: No Would you like helpful sources: No Exam Const General: cooperative and no acute distress Orientation: alert, awake and oriented x3 Neck Neck: normal visual inspection, full ROM and no meningeal signs Resp Effort & Inspection: normal respiratory effort Auscultation: clear to auscultation bilaterally Cardio Rate: regular rate Rhythm: regular rhythm Heart Sounds: S1 normal and S2 normal Back/Spine/Pelvis Thoracic/Lumbar Spine: pain with thoraco-lumbar ROM, paraspinal tenderness, thoraco-lumbar ROM limited, thoracic spinal tenderness and lumbar spinal tenderness Pelvis: no pain with anterior-posterior compression and no pain with lateral compression Neuro General: patient alert, patient awake and patient oriented x3 DTR's: Rt Patellar: 2+, Lt Patellar: 2+, Rt Ankle: 2+ and Lt Ankle: 2+ Course Vital Signs Vital signs: Vital Signs Temperature 36.5 C 04/20/23 09:03 Pulse 83 04/20/23 09:03 Respiratory Rate 16 04/20/23 09:03 Blood Pressure 154/68 H 04/20/23 09:03 Pulse Oximetry 99 04/20/23 09:03 Temperature 36.5 C 04/20/23 09:03 Temperature Source Skin 04/20/23 09:03 Pulse 83 04/20/23 09:03 Respiratory Rate 16 04/20/23 09:03 Respiratory Effort Normal 04/20/23 09:06 Blood Pressure 154/68 H 04/20/23 09:03 Blood Pressure Position Standing 04/20/23 09:03 Pulse Oximetry 99 04/20/23 09:03 Oxygen Delivery Method Room Air 04/20/23 09:03 Oxygen Flow Rate 0 04/20/23 09:03 Pain Level 8 04/20/23 09:03
[2023-04-20] MEDS: Acetaminophen 500 MG TAB 1000 MG PO (09:37)
[2023-04-20] MEDS: Lidocaine 5% Patch 1 PATCH TP (09:37)
--- NOTE | 2023-04-20 10:12 | DI.RAD_ITS ---
Exam(s) XR THORACIC SPINE COMPLETE EXAM: XR THORACIC SPINE COMPLETE CLINICAL HISTORY: back pain. TECHNIQUE: 2D digital imaging was performed. COMPARISON: CT CT ABDOMEN PELVIS W from 10/12/2020 CR XR DEXA BONE DENSITY W/WO GILBERTO from 06/08/2022 FINDINGS: 3 views There is a mild compression fracture of superior endplate of L1. No obvious retropulsed posterior co rtex. This was not evident on CT scan of September 2020 and was not evident on lateral image of the DEXA s can of May 2022. IMPRESSION: L1 compression fracture. Approximately 10 percent height loss at superior endplate level. No obviou s retropulsion. First read by [facility] Final report called by myself to ER physician 04/20/2023 4:35 p.m. DATA REPOSITORY: RADIATION DOSE DELIVERED:
--- NOTE | 2023-04-20 10:12 | DI.RAD_ITS ---
Exam(s) XR LUMBAR SPINE COMPLETE EXAM: XR LUMBAR SPINE COMPLETE CLINICAL HISTORY: low back pain. TECHNIQUE: 2D digital imaging was performed. COMPARISON: CR XR DEXA BONE DENSITY W/WO GILBERTO from 06/08/2022 CR,XR XR THORACIC SPINE COMPLETE from 04/20/2023 FINDINGS: Five views. There is very slight indentation of the superior endplate of L1 a seen on the lateral view, age indet erminate. Evidence of mild disc space narrowing at L4-5 noted as well as L5-S1. No significant list hesis. Multilevel moderate facet arthropathy noted at the lower 3 levels. Bone density age-appropri ate. No osseous lesions. Sacroiliac joints unremarkable. IMPRESSION: Mild compression fracture superior endplate L1. age indeterminate. Correlation with site of tenderne ss recommended. DATA REPOSITORY: RADIATION DOSE DELIVERED:
--- NOTE | 2023-04-20 10:19 | DI.VRAD_ITS ---
PROCEDURE INFORMATION: Exam: XR Thoracic Spine Exam date and time: 04/20/2023 9:54 AM Age: 77 years old Clinical indication: Other: Back pain TECHNIQUE: Imaging protocol: Radiologic exam of the thoracic spine. Views: 3 views. COMPARISON: CR XR LUMBAR SPINE COMPLETE 04/20/2023 9:53 AM FINDINGS: Bones/joints: Minimal levoscoliosis of the thoracic spine. Vertebral body height is grossly preserved No acute fracture. Soft tissues: Unremarkable. IMPRESSION: No acute findings. Minimal levoscoliosis Dictated and Authenticated by: Josesito Mcknight MD. Ordering:DANIELE Hou MD
--- NOTE | 2023-04-20 10:19 | DI.VRAD_ITS ---
PROCEDURE INFORMATION: Exam: XR Lumbosacral Spine Exam date and time: 04/20/2023 9:53 AM Age: 77 years old Clinical indication: Other: Low back pain TECHNIQUE: Imaging protocol: Radiologic exam of the lumbosacral spine. Views: 4 or 5 views. COMPARISON: CR XR LUMBAR SPINE COMPLETE 08/03/2020 11:16 AM FINDINGS: Bones/joints: Chronic loss of vertebral body height noted No acute fracture. Alignment is grossly maintained. Foraminal stenosis at L5-S1 Soft tissues: Unremarkable. IMPRESSION: No acute findings. Degenerative changes as noted Dictated and Authenticated by: Josesito Mcknight MD. Ordering:DANIELE Hou MD
--- NOTE | 2023-04-20 10:30 | NUR.NOTE ---
patient reports feeling some relief with tylenol and lidocaine patch. CLB
--- NOTE | 2023-04-20 16:47 | W.EDPROG ---
Date of service: 04/20/23 Time of Service: 16:48 Medical Decision Making Radiologist Dr. Jaime phone made to inform me of an over read on the patient's lumbar spine x-ray completed earlier today that there is a 10% height loss compression fracture of L1 that is new from prior studies from the patient's fall. I spoke to the patient on the phone and filed a referral for her to see orthopedics, she will phone her primary care and orthopedics on Saturday for possible TLSO brace or other specialized treatments. Discharge Plan Disposition Patient Disposition: Home Discharge Details Clinical Impression: Back pain due to injury, Closed compression fracture of L1 vertebra Primary Care Provider: Bhargavi Lombardo ED Provider: Ameya Mcadams Home Meds and New Rx's Prescriptions: New diclofenac sodium 1 % gel 2 g topical QID PRN (Reason: pain) Qty: 100 1RF Rx Instructions: apply to area of pain Continued dexlansoprazole [Dexilant] 60 mg capsule,biphase delayed releas 60 mg PO DAILY loperamide [Imodium A-D] 2 mg capsule 2 mg PO Q6H PRN simethicone [Gas-X Extra Strength] 125 mg capsule 125 mg PO TID-QID PRN cyanocobalamin (vitamin B-12) 1,000 mcg/mL solution 1,000 mcg IJ QMONTH Qty: 1 Entyvio 300 mg recon soln 300 mg IV Q8W ergocalciferol (vitamin D2) [Vitamin D2] 1,250 mcg (50,000 unit) capsule 1,250 mcg PO .Every other day Systane Complete PF 0.6 % drops 1 drp ophthalmic (eye) QID multivitamin [One Daily] 1 EACH tablet 1 ea PO DAILY acetaminophen [Tylenol] 325 MG tablet 325 mg PO PRN vitamin B complex [B-Complex] 1 EACH tablet 1 ea PO DAILY cholestyramine (with sugar) [Questran] 4 gram powder See Rx Instructions PO BID Patient Comments: 0.25 scoop PO DAILY; Rx Instructions: 0.25 scoop PO twice a day; amlodipine 10 mg tablet 10 mg PO DAILY Qty: 90 3RF ferrous gluconate 324 mg (37.5 mg iron) tablet 324 mg PO BID Qty: 180 3RF Discharge Instructions Instructions: Back Pain (ED) Additional Instructions: As discussed if you have any new or significant worsening of symptoms feel free to return the emergency department for reassessment otherwise follow-up with your primary care provider if not improving over the next 1 to 2 weeks. You may continue to perform gentle activities but it is recommended that you minimize lifting more than 5 pounds, bending or twisting type motions. Please continue to use [id number] acetaminophen and jqva-mwk-siyslvj lidocaine creams or patches as directed on packaging for pain. I have also prescribed you a topical NSAID and use as directed. Referrals: Bhargavi Lombardo NP [Primary Care Provider] - 2 weeks (If not improving) Discharge Data Discharge Date/Time-TO BE ENTERED AT DEPARTURE: 04/20/23 10:58
== END 2023-04-20 10:58 | disposition home or self-care (01) ==
PROVIDERS: Emergency Provider Nurse Practitioner Family; PCP Nurse Practitioner Family
DX: M54.51 Vertebrogenic low back pain (principal); M80.88XA Other osteoporosis with current pathological fracture, vertebra(e), initial encounter for fracture; S32.010A Wedge compression fracture of first lumbar vertebra, initial encounter for closed fracture; X50.0XXA Overexertion from strenuous movement or load, initial encounter; K50.90 Crohn's disease, unspecified, without complications
CPT/HCPCS: 00123; 99284; 72072; 72110; 99283

== ENCOUNTER → 2023-05-30 02:37 | Outpatient (CLI) | payer MEDICARE, MEDICAID, SELFPAY ==
--- NOTE | 2023-05-30 13:30 | DI.MRI_ITS ---
Exam(s) MR LUMBAR SPINE WO EXAM: MR LUMBAR SPINE WO CLINICAL HISTORY: L1 compression fracture,S32.010a. TECHNIQUE: Multiplanar multisequence MRI of the Lumbar spine was performed. COMPARISON: CR,XR XR LUMBAR SPINE COMPLETE from 04/20/2023 CR,XR XR THORACIC SPINE COMPLETE from 04/20/2023 FINDINGS: Conus medullaris is at lower L1 level. There is no evidence of conus mass nor subjacent clumping of intrathecal nerve roots to suggest arachnoiditis. The distal thecal sac appears unremarkable.There i s no evidence of Tarlov intrasacral cysts nor other significant findings within the sacral canal Bones:There is both Schmorl's node invagination and compression concave deformity at superior endplat e of L1 insert with recent compression fracture as there is bone edema throughout the upper half of t he L1 vertebral body. There is also bone edema in the inferior of T12 vertebral body. There is 3 mm posterior displacement of the posterior cortex of the posterior superior cortex of L1 vertebral body with minimal compression of the thecal sac. No significant canal stenosis at this level and there i s no disc herniation evident at this level. Also no foraminal stenosis. Incidentally noted is a dil ated right nerve root sheath in the exiting right neural foramen at this level (T12-L1). With respect to the disc individual levels... T12-L1: As above. No disc herniation at this level. No true central canal stenosis. No foraminal s tenosis. L1-2: Normal disc height. There is a small posterolateral left disc protrusion which extends posteri michael 3 mm and is 7 mm wide and slightly indents the anterior left side of the thecal sac at this leve l. There is no prominent central canal stenosis at this level. No foraminal stenosis.There is no co mpression of the conus medullaris by the small disc protrusion. L2-3: Normal disc height and signal. No disc herniation. Mild annular bulging in the floor of the e xiting neural foramina but no foraminal stenosis on either side. No significant facet arthropathy. L3-4: Normal disc height. No disc herniation or central canal stenosis.No foraminal stenosis.No face t arthropathy. L4-5: Mild disc space narrowing. There is mild degenerative anterolisthesis of L4 upon L5 related to some facet arthropathy. Central canal dimensions are lower normal. Annular bulging into the floor of the exiting left neural foramen but without significant foraminal stenosis on either side. Some f acet arthropathy on the left side. Minimal on the right. L5-S1: Mild disc space narrowing on the right side at this level. Mild central annular bulging witho ut a dominant disc herniation. No central canal stenosis. No significant foraminal stenosis on the left side. There is mild foraminal stenosis on the right side at this level, this related to asymmet chanelle narrowing of the right-side of the disc space when compared to the left. Mild facet joint degene rative changes on the right side. Minimal on the left. Soft tissues: paraspinal soft tissues appear unremarkable. IMPRESSION: 1. Subacute appearing compression fracture of superior endplate of L1. Approximately 10-15 percent h eight loss and with residual intraosseous bone edema seen throughout the upper half of L1 vertebral b brittanie and lower aspect of T12. Mild posterior deviation of the posterior cortex of L1 without signific ant spinal canal stenosis. No disc herniation at this level. 2. Small posterolateral left disc protrusion at L1-2 level which slightly indents the anterior left s brittany of the thecal sac. No true central canal stenosis nor foraminal stenosis at this level. 3. Mild degenerative anterolisthesis of L4 upon L5 due to facet arthropathy no prominent central makayla l stenosis nor foraminal stenosis. 4. Mild foraminal stenosis on the right side at L5-S1 level due to asymmetric disc space narrowing o n the right side of this disc space. DATA REPOSITORY:
== END ==
PROVIDERS: PCP Nurse Practitioner Family; Visit Provider Nurse Practitioner Family
DX: S32.010D Wedge compression fracture of first lumbar vertebra, subsequent encounter for fracture with routine healing (principal); X58.XXXD Exposure to other specified factors, subsequent encounter
CPT/HCPCS: 72148

== ENCOUNTER 2023-06-10 11:47 | Outpatient (REF) | payer MEDICARE, MEDICAID, SELFPAY ==
[2023-06-10 13:55] LABS: Creatinine,Urine 27.43 mg/dL
[2023-06-10 13:56] LABS: Creatinine,24hr Ur 0.63 g/24hr (0.60-1.80); Total Volume 2300 ml
[2023-06-11 09:23] LABS: Calcium Urine 2.6 mg/dL (See Note); Calcium Urine 24 hr 60 mg/24hr (100-300); Timed Urine Volume 2300 mL
== END 2023-06-10 11:48 | disposition home or self-care (01) ==
LOC: LBN 11:47
PROVIDERS: PCP Nurse Practitioner Family; Visit Provider Student in an Organized Health Care Education/Training Program
DX: E55.9 Vitamin D deficiency, unspecified (principal)
CPT/HCPCS: 81050; 82340; 82570

== ENCOUNTER 2023-06-12 03:08 | Outpatient (CLI) | payer MEDICARE, MEDICAID, SELFPAY ==
[2023-06-12 15:54] LABS: Vitamin D 25 Total 15.7 ng/mL (30-100)
== END 2023-06-12 03:09 | disposition home or self-care (01) ==
LOC: LBO 03:08
PROVIDERS: PCP Nurse Practitioner Family; Visit Provider Student in an Organized Health Care Education/Training Program
DX: E55.9 Vitamin D deficiency, unspecified (principal)
CPT/HCPCS: 36415; 82306

== ENCOUNTER 2023-06-28 11:01 | Day surgery (SDC) | payer MEDICARE, MEDICAID, SELFPAY ==
[2023-06-28 11:06] VITALS: BP 124/60; PULSE 73; RESP 18; TEMP 36.4; O2SAT 98
--- NOTE | 2023-06-28 11:54 | W.ANESPRE ---
General Info Date of Service Date Performed: 06/28/23 Height: 5 ft 1 in Weight: 52.8 kg Body Mass Index (BMI): 21.9 Surgical Procedure: Operation Date: 06/28/23 12:55 Proposed Procedure Side Surgeon p Cataract Extraction with IOL Implant Left John Ellison MD Meds Allergies and Home Medications Allergies Allergy/AdvReac Type Severity Reaction Status Date / Time latex Allergy Severe SKIN RASH; Verified 06/28/23 11:27 BLISTERS infliximab [From Remicade] Allergy Intermediate Flushing, Verified 06/28/23 11:27 puffiness in face metronidazole [From Flagyl] Allergy Intermediate RASH Verified 06/28/23 11:27 esomeprazole Allergy Unknown UPPER BODY Verified 06/28/23 11:27 RASH Sulfa (Sulfonamide Allergy Unknown Other (See Verified 06/28/23 11:27 Antibiotics) Comment) clindamycin AdvReac Severe GI UPSET Verified 06/28/23 11:27 azithromycin AdvReac Intermediate gi intol. Verified 06/28/23 11:27 diarrhea goas bloating cramps potassium clavulanate AdvReac Intermediate diarrhea Verified 06/28/23 11:27 [From Augmentin] omeprazole AdvReac Mild NAUSEA Verified 06/28/23 11:27 tymlos AdvReac Intermediate Skin Rash Uncoded 06/28/23 11:27 Home Medication Medication Instructions Recorded acetaminophen 325 mg tablet 325 mg PO PRN 12/10/12 (Tylenol) multivitamin (One Daily tablet) 1 ea PO DAILY 12/10/12 vitamin B complex (B-Complex 1 ea PO DAILY 12/10/12 tablet) dexlansoprazole 60 mg 60 mg PO DAILY 05/05/20 capsule,biphase delayed release (Dexilant) cholestyramine (with sugar) 4 gram See Rx Instructions PO BID 08/30/21 oral powder (Questran) amlodipine 10 mg tablet 10 mg PO DAILY #90 tabs 06/22/22 cyanocobalamin (vitamin B-12) 1,000 mcg IJ QMONTH #1 vial 06/27/22 1,000 mcg/mL injection solution loperamide 2 mg capsule (Imodium 2 mg PO Q6H PRN 06/27/22 A-D) simethicone 125 mg capsule (Gas-X 125 mg PO TID-QID PRN 06/27/22 Extra Strength) vedolizumab 300 mg intravenous 300 mg IV Q8W 06/27/22 solution (Entyvio) ferrous gluconate 324 mg (37.5 mg 324 mg PO BID #180 tabs 07/20/22 iron) tablet propylene glycol (PF) 0.6 % eye 1 drp ophthalmic (eye) QID 01/18/23 drops (Systane Complete PF) fluocinonide 0.05 % topical cream 1 applic topical BID 05/22/23 fluticasone propionate 50 2 spray intranasal DAILY #48 grams 05/23/23 mcg/actuation nasal spray,suspension (Flonase Allergy Relief) ergocalciferol (vitamin D2) 1,250 1,250 mcg PO .2xweek 05/30/23 mcg (50,000 unit) capsule (Vitamin D2) lidocaine 4 % topical patch 1 patch topical DAILY PRN pain #60 05/30/23 ea romosozumab-aqqg 210 mg/2.34 210 mg subcut QMONTH 05/30/23 mL(105 mg/1.17 mL x2)subcutaneous syringe (Evenity) calcium citrate 200 mg (950 mg) 200 mg PO DAILY 06/28/23 tablet Current Visit Medications: Current Medications Generic Name Dose Route Start Last Admin Trade Name Freq PRN Reason Stop Dose Admin Acetaminophen 1,000 mg 06/28/23 06:00 Acetaminophen 500 Mg Tab PO 07/28/23 05:59 Q4H PRN PRN Balanced Salt Solution 500 ml 06/28/23 06:00 Balanced Salt Soln.-Plus 500 Ml Bag OP 07/28/23 05:59 DIRECTED [facility] Miscellaneous Medication 0 ml 06/28/23 06:00 Prednisolone 1%, Moxifloxacin 0.5%, Bromfenac 0.09% 5ml Btl OS 07/28/23 05:59 DIRECTED [place] Miscellaneous Medication 0 ml 06/28/23 06:00 06/28/23 11:50 Tropicam./Phenyleph. 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 Lysis of adhesions 2009. Ileocolic resection 2011, repeated 2020 History of bilateral tubal ligation S/P tonsillectomy and adenoidectomy Tobacco Smoking/Tobacco Use Status: Former Tobacco Use Passive smoking exposure: Yes Alcohol Alcohol Intake: current Alcohol intake frequency: a few times a month Alcohol type: beer Substance Use Substance use: Never Substance use type: does not use Counseling provided: none Vital Signs and Lab Results Vital Signs Most Recent Vital Signs in EMR: Most Recent Vital Signs Temp Pulse Resp BP Pulse Ox 36.4 C L 73 18 124/60 98 06/28/23 11:06 06/28/23 11:06 06/28/23 11:06 06/28/23 11:06 06/28/23 11:06 Lab Results Blood Type / Crossmatch: No Data to Display Complete Blood Count: No Data to Display Complete Metabolic Panel: No Data to Display Liver Function Panel: No Data to Display Coagulation Panel: No Data to Display Cardiac Panel: No Data to Display Arterial Blood Gas: No Data to Display Venous Blood Gas: No Data to Display Pancreas Panel: No Data to Display Thyroid Panel: No Data to Display Infectious Disease: No Data to Display Blood Cultures: No Data to Display Toxicology Panel: No Data to Display Anesthesia Assessment and Plan Anesthesia History Personal History: No History of Anesthesia Complications Family History: No Family History of Anesthesia Complications Exercise Tolerance Exercise Tolerance: Metabolic Equivalents>4 Pertinent Negatives Pertinent Negatives: No Symptoms of GERD Cardiac & Pulmonary Exam Cardiac Exam: Normal S1/S2 Heart Sounds Pulmonary Exam: Clear Bilateral Breath Sounds Implantable Cardiac Device Does patient have a Pacemaker or an ICD?: No Airway Exam Known Difficult Airway: No Mallampati Class: 1 Mouth Opening: Normal (> 3cm) Thyromental Distance: Greater than 3 cm Neck Range of Motion: Full ROM Neck Circumference: Normal Teeth Condition: Normal Dentition ASA Classification ASA Score: ASA 2 Emergency Case?: No NPO Status NPO Status: NPO Clears >2 hours, Solids >8 hours Anesthesia Plan Resuscitation Status: Full Code Anesthesia Technique: MAC Anesthesia Airway Planned: Natural Airway Monitors Used: Standard Monitors
[2023-06-28 12:07] VITALS: BMI 21.9
[2023-06-28] MEDS: Povidone-Iodine Ophth 30 ML BTL (12:26)
[2023-06-28] MEDS: Tetracaine 0.5% 4 ML BTL OS (12:26)
[2023-06-28] MEDS: Duovisc Viscoelastic System EACH 1 EACH (12:34)
[2023-06-28] MEDS: Lidocaine 1% Pres-Free 5 ML VIAL (12:35)
[2023-06-28] MEDS: Balanced Salt Soln.-PLUS 500 ML BAG OP (12:39)
[2023-06-28 12:51] VITALS: BP 147/61; PULSE 70; RESP 16; TEMP 36.8; O2SAT 98
--- NOTE | 2023-06-28 12:52 | W.PM.DSUDISC ---
Date of service: 06/28/23 Time of Service: 12:52 Discharge Plan Disposition Patient Disposition: Home Discharge Details Attending Provider: John Ellison Primary Care Provider: Bhargavi Lombardo Home Meds and New Rx's Prescriptions: No Action fluocinonide 0.05 % cream 1 applic topical BID dexlansoprazole [Dexilant] 60 mg capsule,biphase delayed releas 60 mg PO DAILY loperamide [Imodium A-D] 2 mg capsule 2 mg PO Q6H PRN simethicone [Gas-X Extra Strength] 125 mg capsule 125 mg PO TID-QID PRN cyanocobalamin (vitamin B-12) 1,000 mcg/mL solution 1,000 mcg IJ QMONTH Qty: 1 Entyvio 300 mg recon soln 300 mg IV Q8W Systane Complete PF 0.6 % drops 1 drp ophthalmic (eye) QID ergocalciferol (vitamin D2) [Vitamin D2] 1,250 mcg (50,000 unit) capsule 1,250 mcg PO .2xweek Evenity 210mg/2.34mL ( 105mg/1.17mLx2) syringe 210 mg subcut QMONTH lidocaine 4 % adhesive patch,medicated 1 patch topical DAILY PRN (Reason: pain) Qty: 60 1RF Rx Instructions: Apply patch to most painful area, may leave on for up to 12 hrs multivitamin [One Daily] 1 EACH tablet 1 ea PO DAILY acetaminophen [Tylenol] 325 MG tablet 325 mg PO PRN vitamin B complex [B-Complex] 1 EACH tablet 1 ea PO DAILY cholestyramine (with sugar) [Questran] 4 gram powder See Rx Instructions PO BID Patient Comments: 0.25 scoop PO DAILY; Rx Instructions: 0.25 scoop PO twice a day; amlodipine 10 mg tablet 10 mg PO DAILY Qty: 90 3RF ferrous gluconate 324 mg (37.5 mg iron) tablet 324 mg PO BID Qty: 180 3RF fluticasone propionate [Flonase Allergy Relief] 50 mcg/actuation spray,suspension 2 spray intranasal DAILY Qty: 48 4RF Rx Instructions: administer into each nostril calcium citrate 200 mg (950 mg) tablet 200 mg PO DAILY Patient Comments: TAKE 1 TABLET BY MOUTH EVERY DAY Discharge Instructions Stand Alone Forms: DSU Post-Op Cataract, Press Ganey (DSU) Discharge Orders Discharge Orders: Discharge Order (Routine); Ordered 06/28/23 Ordered By: John Ellison DS: Diagnosis Discharge Diagnosis (1) Nuclear age-related cataract, left eye: Status: Resolved
--- NOTE | 2023-06-28 12:52 | W.PM.OP ---
Date of service: 06/28/23 Time of Service: 12:52 Operative Note Operative Note DATE OF PROCEDURE: 06/28/23 PRE-OP DIAGNOSIS: Nuclear cataract, left eye POST-OP DIAGNOSIS: same PROCEDURE: Cataract extraction using phacoemulsification with intraocular lens implant, left eye SURGEON: John Ellison ANESTHESIA TYPE: Local By Surgeon and MAC Refer to Anesthesia Record PATHOLOGY: none sent COMPLICATIONS: None Patient was transported to: same day Patient's condition: stable Implants: Didier Clareon [id number] Indications: Progressive decreased vision due to cataract, left eye Procedure Description: CATARACT SURGERY OPERATIVE REPORT PREOPERATIVE DIAGNOSIS: Nuclear cataract, left eye POSTOPERATIVE DIAGNOSIS: Same OPERATION: Cataract extraction using phacoemulsification with posterior chamber intraocular lens implant, left eye. IOL: IOL Paper Machine Back Tender/Model: Didier Clareon [id number] IOL Power: + 24.5 diopters IOL Serial Number: [id number] Optic Diameter: 6.0mm Haptic/Overall Diameter: 13.0mm PHACO INFO: Didier CRESCELurion Vision System with OZil and Active Fluidics Cumulative Dispersed Energy (CDE): 14.26 seconds SURGEON: John Ellison MD, DENZEL ANESTHESIA: Monitored Anesthesia Care (MAC), with local sub-tenon's anesthetic infiltration COMPLICATIONS: None SPECIMENS: None INDICATIONS FOR PROCEDURE: The patient is a 77-year-old lady with history of diminished visual acuity in her left eye secondary to the development of nuclear cataract. She is significantly symptomatic that she desires cataract surgery and attempt to improve and maximize her vision. The option of surgery was offered to the patient and she wished to proceed. See office notes for detailed information. PROCEDURE: The correct surgical eye was identified and marked as the left eye and the pupil was dilated in the preoperative area using mydriatics and cycloplegics. The dilated pupil size was 6.0 mm. Oral sedation was administered in the form of an Imprimis MKO Melt (midazolam 3mg/ketamine 25mg/ondansetron 2mg). The patient was brought to the operating room where cardiopulmonary monitoring was instituted and surgical time-out was performed, confirming the correct operative eye and IOL power. Topical anesthesia was administered and ophthalmic povidone-iodine 5% was instilled into the conjunctival fornices. The john-ocular area was prepped with Betadine 10% solution and draped in the usual sterile fashion for intraocular surgery, including an aperture drape. A Tegaderm transparent film dressing was cut in half and used to cover the lashes and lid margins. Care was taken to sequester the lashes and lid margins under the Tegaderm dressing. A lid speculum was placed between the lids of the operative eye and the Didier LuxOR Revalia operating microscope was maneuvered into position. Didier scissors were then used to make a conjunctival buttonhole approximately 6mm posterior to the limbus in the inferonasal quadrant. Blunt dissection was carried out to expose bare sclera, and a blunt-tipped sub-tenon?s anesthesia cannula was introduced and passed posteriorly along the globe where non-preserved plain lidocaine was injected into posterior sub-Tenon?s space. A sideport knife was used to make a paracentesis port. Intraocular phenylephrine/lidocaine was injected into the anterior chamber. The anterior chamber was then filled with viscoelastic. A keratome knife was used construct a two-plane clear corneal tunnel extending 2.0mm into clear cornea. A flap was raised on the anterior capsule and capsulorhexis forceps were used to complete a continuous curvilinear capsulorhexis of 5.5 mm. Balanced salt solution was then used to perform cortical cleaving hydrodissection and nuclear hydrodelineation until the lens could be freely rotated within the capsular bag. The lens nucleus was then disassembled and removed within the capsular bag and iris plane using phacoemulsification. Residual cortical material was removed using the irrigation/aspiration handpiece. The posterior capsule was carefully polished to remove as much residual lens epithelial cells as safely possible. The capsular bag was then inflated and the anterior chamber deepened with viscoelastic. The lens implant described above was inserted into the capsular bag using the Didier Autonome Injector. A Kuglen hook was used to dial the IOL into position. Residual viscoelastic was then removed first from posterior to the IOL, then from the anterior chamber using the I/A handpiece. The lens implant was noted to center nicely within the capsular bag. The incisions were stromally hydrated, and the anterior chamber was reformed using BSS. Then 0.5cc of moxifloxacin 1.0mg/ml were injected into the capsular bag and anterior chamber. The incisions were checked with a Weck spear and found to be secure. Several drops of ophthalmic povidone-iodine 5% were then applied to the eye followed by two drops of combination steroid/NSAID/antibiotic solution. The drapes were removed and a clear plastic protective eye shield was placed over the eye. The patient was then returned to Same Day Surgery in stable condition.
[2023-06-28 13:21] VITALS: BP 142/87; PULSE 80; RESP 18; TEMP 36.8; O2SAT 98
--- NOTE | 2023-06-28 13:30 | W.ANESPOSTOP ---
Postoperative Evaluation Date, Time and Location Date Performed: 06/28/23 Time Performed: 13:30 Patient Location: Day Surgery Unit Vital Signs Most Recent Imported Vital Signs: Most Recent Vital Signs Temp Pulse Resp BP Pulse Ox 36.8 C 80 18 142/87 H 98 06/28/23 13:21 06/28/23 13:21 06/28/23 13:21 06/28/23 13:21 06/28/23 13:21 Pain Score Most Recent Pain Score: Most Recent Pain Score Pain Level 0 06/28/23 13:21 Assessment Mental Status: Awake (Alert & Oriented to Patient Baseline) Airway and Respiratory Function: Patent airway with normal (patient baseline) respiratory exam Cardiovascular Function: Hemodynamically Stable Hydration Status: Adequately Hydrated Nausea & Vomiting: No Nausea or Vomiting Pain: Pt. Denies Any Pain Peripheral Nerve Block: Patient did not receive a nerve block
== END 2023-06-28 13:25 | disposition home or self-care (01) ==
LOC: SUR 11:01
PROVIDERS: PCP Nurse Practitioner Family; Visit Provider Ophthalmology
PROC: (CPT 66984; principal; 2023-06-28 12:45)
DX: H25.12 Age-related nuclear cataract, left eye (principal); K21.9 Gastro-esophageal reflux disease without esophagitis; I10 Essential (primary) hypertension
CPT/HCPCS: 66984; 00123; V2632; J2003

== ENCOUNTER → 2023-07-02 02:34 | Outpatient (CLI) | payer MEDICARE, MEDICAID, SELFPAY ==
--- NOTE | 2023-07-02 10:50 | DI.MRI_ITS ---
Exam(s) MR THORACIC SPINE WO EXAM: MR THORACIC SPINE WO CLINICAL HISTORY: ACUTE MIDLINE THORACIC BACK PAIN,M54.6,COMP FX T12,S22.080A. TECHNIQUE: Multiplanar multisequence MRI of the Thoracic spine was performed. COMPARISON: CT NECK WITHOUT CONTRAST from 03/01/2016 CR,XR XR LUMBAR SPINE COMPLETE from 04/20/2023 CR,XR XR THORACIC SPINE COMPLETE from 04/20/2023 MR MR LUMBAR SPINE WO from 05/30/2023 FINDINGS: Bones: There is mild anterior wedging of the T7 vertebral body which appears chronic. Alignment is s atisfactory. Mild degenerative changes are seen in the mid at and lower thoracic spine. There is aga in faintly visualized on this examination, a oblique area of hypointensity in the anterior and left a spect of the inferior endplate of T12. There is no significant marrow edema on this examination. Th is may represent a nondisplaced fracture. There was the area was more prominent on the MRI of the kartik mbar spine examination from 05/30/2023. There is no change in the superior compression deformity of L 1 since 05/30/2023. No other evidence of a thoracic spine fracture is seen. Cord: The thoracic cord is normal size and signal intensity. No intrinsic cord lesion is present. The re appear to be perineural root sleeve cysts in the lower thoracic spine. Discs: No significant disc herniation. No significant central spinal canal or neural foraminal steno sis is seen in the thoracic spine. Soft tissues: There is a well-circumscribed round lesion to the left of the trachea in the neck bryanna uring 2.7 cm transverse by 3.0 cm AP x 3.7 cm craniocaudad. It is incompletely evaluated on this exa mination. A CT scan of the neck is recommended for further evaluation. IMPRESSION: 1. Question of a nondisplaced fracture involving the inferior endplate of T12. There has been no sig nificant change in appearance since 05/30/2023. 2. Stable appearance of the L1 compression deformity. 3. Well-circumscribed T2 hyperintense 2.7 x 3.0 x 3.7 cm lesion in the soft tissues of the left neck. A CT scan of the neck with contrast is recommended for further evaluation. Unexpected findings DATA REPOSITORY:
== END ==
PROVIDERS: PCP Nurse Practitioner Family; Visit Provider Student in an Organized Health Care Education/Training Program
DX: S22.080A Wedge compression fracture of T11-T12 vertebra, initial encounter for closed fracture (principal); X58.XXXA Exposure to other specified factors, initial encounter
CPT/HCPCS: 72146

== ENCOUNTER 2023-08-09 03:39 | Outpatient (CLI) | payer MEDICARE, MEDICAID, SELFPAY | END 2023-08-09 03:40 | disposition home or self-care (01) | PROVIDERS: PCP Nurse Practitioner Family; Visit Provider Student in an Organized Health Care Education/Training Program | DX: E55.9 Vitamin D deficiency, unspecified (principal) | CPT/HCPCS: 36415; 82306 ==

== ENCOUNTER 2023-08-16 06:11 | Day surgery (SDC) | payer MEDICARE, MEDICAID, SELFPAY ==
--- NOTE | 2023-08-15 20:35 | W.PREOPHP ---
Assessment and Plan Assessment and plan (1) Nuclear age-related cataract, right eye: Status: Acute Assessment and plan: Assessment: Visually significant cataract right eye. Plan: Cataract extraction with intraocular lens implant, right eye. History of Present Illness History of Present Illness Chief Complaint: Decreased vision Right eye Narrative: The patient is a 78-year-old lady with history of decreased vision in both eyes at both distance and near, left eye worse than right. She notes significant difficulty with driving at night due to glare and also has trouble reading fine print. On examination she was noted to have significant bilateral nuclear cataracts with corrected vision of 20/70 OD, 20/125 OS. She underwent cataract surgery in the left eye on 06/28/2023. Postoperatively she is doing well, but now presents for cataract surgery in her symptomatic right eye. See office notes for detailed information. Review of Systems All systems reviewed & are unremarkable except as noted in HPI and below PFSH All Active Problems Nuclear age-related cataract, right eye (Acute) Compression fracture of L1 lumbar vertebra (Acute ~04/2023) Multinodular thyroid (Chronic) Iron deficiency anemia (Chronic) Hypertension (Chronic) Hyperlipidemia (Chronic) Vitamin D deficiency (Chronic) Psoriasis (Chronic) Mixed conductive and sensorineural hearing loss of right ear with restricted hearing of left ear (Chronic) hearing aid GERD (gastroesophageal reflux disease) (Chronic) Chronic rhinitis (Chronic) Osteoporosis (Chronic) Dexa 2022. Followed by [facility] Endo Crohn's disease (Chronic) Followed by [facility] GI Medical History Calcium deficiency Small bowel obstruction Secondary to Crohn's disease History of tobacco use [id number] remotely Herpes zoster Surgical History Hx of mastoidectomy S/P appendectomy History of resection of terminal ileum Ileal resection 2000. Lysis of adhesions 2009. Ileocolic resection 2011, repeated 2020 History of bilateral tubal ligation S/P tonsillectomy and adenoidectomy Family History Mother , 69 Diabetes Stroke Father , 60 Myocardial infarction Heart disease Colitis Not sure if crohn's or UC but had part of his colon removed Sister , 70 No problems noted. Sister Crohn's disease Sister No problems noted. Maternal Grandfather No problems noted. Paternal Grandfather No problems noted. Maternal Grandmother No problems noted. Paternal Grandmother No problems noted. Daughter No problems noted. Daughter No problems noted. Daughter Down syndrome Collagenous colitis Social History Smoking/Tobacco Use Status: Former Tobacco Use tobacco type: cigarettes Quit Date: 05/20/79 Tobacco: How many years used: 20 Smoking risk assessment performed?: Yes Alcohol Intake: current Alcohol Intake frequency: a few times a month Alcohol type: beer Drug use: Never Substance use type: does not use Counseling provided: none Caregiver/Support person: No Household members: none Housing: house Communication Needs: Hard of Hearing Pets and animals: No Sexually active: No Do you think of yourself as: straight/heterosexual Current gender identity: female What is your relationship status?: How often do you talk on the phone with friends or family?: three or more times per week How often do you get together with friends or relatives?: once per week Do you belong to any clubs or organized social groups?: no Panel score (0-1 are the most socially isolated patients): 1 What type of physical activity do you participate in: walking and yoga Duration: 45-60 minutes/day Frequency: daily Oma/Quaker: Yarsani Special oma needs: No Seatbelt use: always Drive intox or ride w/intox vibratory pile driver: No Do you feel safe at home: Yes Do you feel safe in your relationship?: Yes Victim of physical abuse: No Victim of emotional abuse: No Victim of sexual abuse: No Would you like helpful sources: No Additional Social history: Lives at home with down syndrome daughter Meds Allergies and Home Medications Allergies Allergy/AdvReac Type Severity Reaction Status Date / Time latex Allergy Severe SKIN RASH; Verified 08/16/23 06:35 BLISTERS infliximab [From Remicade] Allergy Intermediate Flushing, Verified 08/16/23 06:35 puffiness in face metronidazole [From Flagyl] Allergy Intermediate RASH Verified 08/16/23 06:35 esomeprazole Allergy Unknown UPPER BODY Verified 08/16/23 06:35 RASH Sulfa (Sulfonamide Allergy Unknown Other (See Verified 08/16/23 06:35 Antibiotics) Comment) clindamycin AdvReac Severe GI UPSET Verified 08/16/23 06:35 azithromycin AdvReac Intermediate gi intol. Verified 08/16/23 06:35 diarrhea goas bloating cramps potassium clavulanate AdvReac Intermediate diarrhea Verified 08/16/23 06:35 [From Augmentin] omeprazole AdvReac Mild NAUSEA Verified 08/16/23 06:35 tymlos AdvReac Intermediate Skin Rash Uncoded 08/16/23 06:35 Home Medications Medication Instructions Recorded Confirmed Type acetaminophen 325 mg tablet 325 mg PO PRN 12/10/12 08/16/23 History (Tylenol) multivitamin (One Daily tablet) 1 ea PO DAILY 12/10/12 08/16/23 History vitamin B complex (B-Complex 1 ea PO DAILY 12/10/12 08/16/23 History tablet) dexlansoprazole 60 mg 60 mg PO DAILY 05/05/20 08/16/23 History capsule,biphase delayed release (Dexilant) cholestyramine (with sugar) 4 gram See Rx Instructions PO BID 08/30/21 08/16/23 History oral powder (Questran) cyanocobalamin (vitamin B-12) 1,000 mcg IJ QMONTH #1 vial 06/27/22 08/16/23 History 1,000 mcg/mL injection solution loperamide 2 mg capsule (Imodium 2 mg PO Q6H PRN 06/27/22 08/16/23 History A-D) simethicone 125 mg capsule (Gas-X 125 mg PO TID-QID PRN 06/27/22 08/16/23 History Extra Strength) vedolizumab 300 mg intravenous 300 mg IV Q8W 06/27/22 08/16/23 History solution (Entyvio) ferrous gluconate 324 mg (37.5 mg 324 mg PO BID #180 tabs 07/20/22 08/16/23 Rx iron) tablet propylene glycol (PF) 0.6 % eye 1 drp ophthalmic (eye) QID 01/18/23 08/16/23 History drops (Systane Complete PF) fluocinonide 0.05 % topical cream 1 applic topical BID 05/22/23 08/16/23 History fluticasone propionate 50 2 spray intranasal DAILY #48 grams 05/23/23 08/16/23 Rx mcg/actuation nasal spray,suspension (Flonase Allergy Relief) ergocalciferol (vitamin D2) 1,250 1,250 mcg PO .2xweek 05/30/23 08/16/23 History mcg (50,000 unit) capsule (Vitamin D2) lidocaine 4 % topical patch 1 patch topical DAILY PRN pain #60 05/30/23 08/16/23 Rx ea romosozumab-aqqg 210 mg/2.34 210 mg subcut QMONTH 05/30/23 08/16/23 History mL(105 mg/1.17 mL x2)subcutaneous syringe (Evenity) calcium citrate 200 mg (950 mg) 200 mg PO DAILY 06/28/23 08/16/23 History tablet amlodipine 10 mg tablet 10 mg PO DAILY #90 tabs 07/15/23 08/16/23 Rx Exam Eyes Other: Most recent ocular examination is significant for corrected visual acuity of 20/70 OD 20/125 OS. Extraocular motility is normal. Intraocular pressure is 10 OD, 11 OS. Slit-lamp examination reveals a moderate brunescent nuclear cataract in the right eye. In the left eye there is a well-positioned PCIOL with clear posterior capsule. Disc cupping of 0.3 OU with normal vessels, macula, peripheral retina and vitreous. Resp Auscultation: clear to auscultation bilaterally Cardio Rate: regular rate Rhythm: regular rhythm
[2023-08-16 06:20] VITALS: BP 172/69; PULSE 66; RESP 16; TEMP 36.5; O2SAT 100
--- NOTE | 2023-08-16 07:06 | ANES.PREOP_ITS ---
General Info Date of Service Date Performed: 08/16/23 Height: 5 ft 1 in Weight: 54.4 kg Body Mass Index (BMI): 22.6 Surgical Procedure: Operation Date: 08/16/23 07:40 Proposed Procedure Side Surgeon p Cataract Extraction with IOL Implant Right John Ellison MD Meds Allergies and Home Medications Allergies Allergy/AdvReac Type Severity Reaction Status Date / Time latex Allergy Severe SKIN RASH; Verified 08/16/23 06:35 BLISTERS infliximab [From Remicade] Allergy Intermediate Flushing, Verified 08/16/23 06:35 puffiness in face metronidazole [From Flagyl] Allergy Intermediate RASH Verified 08/16/23 06:35 esomeprazole Allergy Unknown UPPER BODY Verified 08/16/23 06:35 RASH Sulfa (Sulfonamide Allergy Unknown Other (See Verified 08/16/23 06:35 Antibiotics) Comment) clindamycin AdvReac Severe GI UPSET Verified 08/16/23 06:35 azithromycin AdvReac Intermediate gi intol. Verified 08/16/23 06:35 diarrhea goas bloating cramps potassium clavulanate AdvReac Intermediate diarrhea Verified 08/16/23 06:35 [From Augmentin] omeprazole AdvReac Mild NAUSEA Verified 08/16/23 06:35 tymlos AdvReac Intermediate Skin Rash Uncoded 08/16/23 06:35 Home Medication Medication Instructions Recorded acetaminophen 325 mg tablet 325 mg PO PRN 12/10/12 (Tylenol) multivitamin (One Daily tablet) 1 ea PO DAILY 12/10/12 vitamin B complex (B-Complex 1 ea PO DAILY 12/10/12 tablet) dexlansoprazole 60 mg 60 mg PO DAILY 05/05/20 capsule,biphase delayed release (Dexilant) cholestyramine (with sugar) 4 gram See Rx Instructions PO BID 08/30/21 oral powder (Questran) cyanocobalamin (vitamin B-12) 1,000 mcg IJ QMONTH #1 vial 06/27/22 1,000 mcg/mL injection solution loperamide 2 mg capsule (Imodium 2 mg PO Q6H PRN 06/27/22 A-D) simethicone 125 mg capsule (Gas-X 125 mg PO TID-QID PRN 06/27/22 Extra Strength) vedolizumab 300 mg intravenous 300 mg IV Q8W 06/27/22 solution (Entyvio) ferrous gluconate 324 mg (37.5 mg 324 mg PO BID #180 tabs 07/20/22 iron) tablet propylene glycol (PF) 0.6 % eye 1 drp ophthalmic (eye) QID 01/18/23 drops (Systane Complete PF) fluocinonide 0.05 % topical cream 1 applic topical BID 05/22/23 fluticasone propionate 50 2 spray intranasal DAILY #48 grams 05/23/23 mcg/actuation nasal spray,suspension (Flonase Allergy Relief) ergocalciferol (vitamin D2) 1,250 1,250 mcg PO .2xweek 05/30/23 mcg (50,000 unit) capsule (Vitamin D2) lidocaine 4 % topical patch 1 patch topical DAILY PRN pain #60 05/30/23 ea romosozumab-aqqg 210 mg/2.34 210 mg subcut QMONTH 05/30/23 mL(105 mg/1.17 mL x2)subcutaneous syringe (Evenity) calcium citrate 200 mg (950 mg) 200 mg PO DAILY 06/28/23 tablet amlodipine 10 mg tablet 10 mg PO DAILY #90 tabs 07/15/23 Current Visit Medications: Current Medications Generic Name Dose Route Start Last Admin Trade Name Freq PRN Reason Stop Dose Admin Acetaminophen 1,000 mg 08/16/23 06:00 Acetaminophen 500 Mg Tab PO 09/15/23 05:59 Q4H PRN PRN Balanced Salt Solution 500 ml 08/16/23 06:00 Balanced Salt Soln.-Plus 500 Ml Bag OP 09/15/23 05:59 DIRECTED [facility] Miscellaneous Medication 0 ml 08/16/23 06:00 Prednisolone 1%, Moxifloxacin 0.5%, Bromfenac 0.09% 5ml Btl OD 09/15/23 05:59 DIRECTED [facility] Miscellaneous Medication 0 ml 08/16/23 06:00 08/16/23 06:48 Tropicam./Phenyleph. 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 Lysis of adhesions 2009. Ileocolic resection 2011, repeated 2020 History of bilateral tubal ligation S/P tonsillectomy and adenoidectomy Tobacco Smoking/Tobacco Use Status: Former Tobacco Use Passive smoking exposure: Yes Alcohol Alcohol Intake: current Alcohol intake frequency: a few times a month Alcohol type: beer Substance Use Substance use: Never Substance use type: does not use Counseling provided: none Vital Signs and Lab Results Vital Signs Most Recent Vital Signs in EMR: Most Recent Vital Signs Temp Pulse Resp BP Pulse Ox 36.5 C 66 16 172/69 H 100 08/16/23 06:20 08/16/23 06:20 08/16/23 06:20 08/16/23 06:20 08/16/23 06:20 Lab Results Blood Type / Crossmatch: No Data to Display Complete Blood Count: No Data to Display Complete Metabolic Panel: No Data to Display Liver Function Panel: No Data to Display Coagulation Panel: No Data to Display Cardiac Panel: No Data to Display Arterial Blood Gas: No Data to Display Venous Blood Gas: No Data to Display Pancreas Panel: No Data to Display Thyroid Panel: No Data to Display Infectious Disease: No Data to Display Blood Cultures: No Data to Display Toxicology Panel: No Data to Display Anesthesia Assessment and Plan Anesthesia History Personal History: No History of Anesthesia Complications Family History: No Family History of Anesthesia Complications Exercise Tolerance Exercise Tolerance: Metabolic Equivalents>4 Pertinent Negatives Pertinent Negatives: No Symptoms of GERD Cardiac & Pulmonary Exam Cardiac Exam: Normal S1/S2 Heart Sounds Pulmonary Exam: Clear Bilateral Breath Sounds Implantable Cardiac Device Does patient have a Pacemaker or an ICD?: No Airway Exam Known Difficult Airway: No Mallampati Class: 1 Mouth Opening: Normal (> 3cm) Thyromental Distance: Greater than 3 cm Neck Range of Motion: Full ROM Neck Circumference: Normal Teeth Condition: Normal Dentition ASA Classification ASA Score: ASA 2 Emergency Case?: No NPO Status NPO Status: NPO Clears >2 hours, Solids >8 hours Anesthesia Plan Resuscitation Status: Full Code Anesthesia Technique: General Anesthesia Airway Planned: Natural Airway Monitors Used: Standard Monitors
[2023-08-16 07:10] VITALS: BMI 22.6
[2023-08-16] MEDS: Lidocaine 1% Pres-Free 5 ML VIAL (07:43)
[2023-08-16] MEDS: Duovisc Viscoelastic System EACH 1 EACH (07:46)
[2023-08-16] MEDS: Povidone-Iodine Ophth 30 ML BTL (07:46)
[2023-08-16] MEDS: Balanced Salt Soln.-PLUS 500 ML BAG OP (07:47)
[2023-08-16] MEDS: Tetracaine 0.5% 4 ML BTL OD (07:48)
[2023-08-16 08:05] VITALS: BP 119/97; PULSE 66; RESP 16; TEMP 36.3; O2SAT 96
--- NOTE | 2023-08-16 08:07 | W.PM.DSUDISC ---
Date of service: 08/16/23 Time of Service: 08:07 Discharge Plan Disposition Patient Disposition: Home Discharge Details Attending Provider: John Ellison Primary Care Provider: Bhargavi Lombardo Home Meds and New Rx's Prescriptions: No Action fluocinonide 0.05 % cream 1 applic topical BID dexlansoprazole [Dexilant] 60 mg capsule,biphase delayed releas 60 mg PO DAILY loperamide [Imodium A-D] 2 mg capsule 2 mg PO Q6H PRN simethicone [Gas-X Extra Strength] 125 mg capsule 125 mg PO TID-QID PRN cyanocobalamin (vitamin B-12) 1,000 mcg/mL solution 1,000 mcg IJ QMONTH Qty: 1 Entyvio 300 mg recon soln 300 mg IV Q8W Systane Complete PF 0.6 % drops 1 drp ophthalmic (eye) QID ergocalciferol (vitamin D2) [Vitamin D2] 1,250 mcg (50,000 unit) capsule 1,250 mcg PO .2xweek Evenity 210mg/2.34mL ( 105mg/1.17mLx2) syringe 210 mg subcut QMONTH lidocaine 4 % adhesive patch,medicated 1 patch topical DAILY PRN (Reason: pain) Qty: 60 1RF Rx Instructions: Apply patch to most painful area, may leave on for up to 12 hrs multivitamin [One Daily] 1 EACH tablet 1 ea PO DAILY acetaminophen [Tylenol] 325 MG tablet 325 mg PO PRN vitamin B complex [B-Complex] 1 EACH tablet 1 ea PO DAILY cholestyramine (with sugar) [Questran] 4 gram powder See Rx Instructions PO BID Patient Comments: 0.25 scoop PO DAILY; Rx Instructions: 0.25 scoop PO twice a day; ferrous gluconate 324 mg (37.5 mg iron) tablet 324 mg PO BID Qty: 180 3RF fluticasone propionate [Flonase Allergy Relief] 50 mcg/actuation spray,suspension 2 spray intranasal DAILY Qty: 48 4RF Rx Instructions: administer into each nostril amlodipine 10 mg tablet 10 mg PO DAILY Qty: 90 3RF calcium citrate 200 mg (950 mg) tablet 200 mg PO DAILY Patient Comments: TAKE 1 TABLET BY MOUTH EVERY DAY Discharge Instructions Stand Alone Forms: DSU Post-Op Cataract, Press Ganey (DSU) Discharge Orders Discharge Orders: Discharge Order (Routine); Ordered 08/16/23 Ordered By: John Ellison DS: Diagnosis Discharge Diagnosis (1) Nuclear age-related cataract, right eye: Status: Resolved
--- NOTE | 2023-08-16 08:09 | W.PM.OP ---
Date of service: 08/16/23 Time of Service: 08:09 Operative Note Operative Note DATE OF PROCEDURE: 08/16/23 PRE-OP DIAGNOSIS: Nuclear cataract, right eye POST-OP DIAGNOSIS: same PROCEDURE: Cataract extraction using phacoemulsification with intraocular lens implant, right eye SURGEON: John Ellison ANESTHESIA TYPE: Local By Surgeon and MAC Refer to Anesthesia Record ESTIMATED BLOOD LOSS: 0 PATHOLOGY: none sent COMPLICATIONS: None Patient was transported to: same day Patient's condition: stable Implants: Didier Clareon [id number] Indications: Progressive decreased vision due to cataract, right eye Procedure Description: CATARACT SURGERY OPERATIVE REPORT PREOPERATIVE DIAGNOSIS: Nuclear cataract, right eye POSTOPERATIVE DIAGNOSIS: Same OPERATION: Cataract extraction using phacoemulsification with posterior chamber intraocular lens implant, right eye. IOL: IOL Marine Engineer Cpvec/Model: Didier Clareon [id number] IOL Power: + 24.5 diopters IOL Serial Number: [id number] Optic Diameter: 6.0mm Haptic/Overall Diameter: 13.0mm PHACO INFO: Didier Serviourion Vision System with OZil and Active Fluidics Cumulative Dispersed Energy (CDE): 15.49 seconds SURGEON: John Ellison MD, DENZEL ANESTHESIA: Monitored Anesthesia Care (MAC), with local sub-tenon's anesthetic infiltration COMPLICATIONS: None SPECIMENS: None INDICATIONS FOR PROCEDURE: The patient is a 78-year-old lady with history of diminished visual acuity in both eyes secondary to the development of bilateral nuclear cataract. She has already undergone cataract surgery in the left eye and is doing well postoperatively. She now presents for cataract surgery in the right eye. See office notes for detailed information. PROCEDURE: The correct surgical eye was identified and marked as the right eye and the pupil was dilated in the preoperative area using mydriatics and cycloplegics. The dilated pupil size was 7.0 mm. Oral sedation was administered in the form of an Imprimis MKO Melt (midazolam 3mg/ketamine 25mg/ondansetron 2mg). The patient was brought to the operating room where cardiopulmonary monitoring was instituted and surgical time-out was performed, confirming the correct operative eye and IOL power. Topical anesthesia was administered and ophthalmic povidone-iodine 5% was instilled into the conjunctival fornices. The john-ocular area was prepped with Betadine 10% solution and draped in the usual sterile fashion for intraocular surgery, including an aperture drape. A Tegaderm transparent film dressing was cut in half and used to cover the lashes and lid margins. Care was taken to sequester the lashes and lid margins under the Tegaderm dressing. A lid speculum was placed between the lids of the operative eye and the Didier LuxOR Revalia operating microscope was maneuvered into position. Didier scissors were then used to make a conjunctival buttonhole approximately 6mm posterior to the limbus in the inferonasal quadrant. Blunt dissection was carried out to expose bare sclera, and a blunt-tipped sub-tenon?s anesthesia cannula was introduced and passed posteriorly along the globe where non-preserved plain lidocaine was injected into posterior sub-Tenon?s space. A sideport knife was used to make a paracentesis port. Intraocular phenylephrine/lidocaine was injected into the anterior chamber. The anterior chamber was then filled with viscoelastic. A keratome knife was used to construct a two--plane clear corneal tunnel extending 2.0mm into clear cornea. A flap was raised on the anterior capsule and capsulorhexis forceps were used to complete a continuous curvilinear capsulorhexis of 5.0 mm. Balanced salt solution was then used to perform cortical cleaving hydrodissection and nuclear hydrodelineation until the lens could be freely rotated within the capsular bag. The lens nucleus was then disassembled and removed within the capsular bag and iris plane using phacoemulsification. Residual cortical material was removed using the I/A handpiece. The posterior capsule was carefully polished to remove as much residual lens epithelial cells as safely possible. The capsular bag was then inflated and the anterior chamber deepened with cohesive viscoelastic. The lens implant described above was inserted into the capsular bag using the Didier Autonome Injector. A Kuglen hook was used to dial the IOL into position. Residual viscoelastic was then removed first from posterior to the IOL, then from the anterior chamber using the I/A handpiece. The lens implant was noted to center nicely within the capsular bag. The incisions were stromally hydrated, and the anterior chamber was reformed using BSS. Then 0.5cc of moxifloxacin 1.0mg/ml were injected into the capsular bag and anterior chamber. The incisions were checked with a Weck spear and found to be secure. Several drops of ophthalmic povidone-iodine 5% were then applied to the eye followed by two drops of combination steroid/NSAID/antibiotic solution. The drapes were removed and a clear plastic protective eye shield was placed over the eye. The patient was then returned to Same Day Surgery in stable condition.
--- NOTE | 2023-08-16 08:15 | W.ANESPOSTOP ---
Postoperative Evaluation Date, Time and Location Date Performed: 08/16/23 Time Performed: 08:13 Patient Location: Day Surgery Unit Vital Signs Most Recent Imported Vital Signs: Most Recent Vital Signs Temp Pulse Resp BP Pulse Ox 36.3 C L 66 16 119/97 H 96 08/16/23 08:05 08/16/23 08:05 08/16/23 08:05 08/16/23 08:05 08/16/23 08:05 Pain Score Most Recent Pain Score: Most Recent Pain Score Pain Level 0 08/16/23 08:05 Assessment Mental Status: Arousable with meaningful communication Airway and Respiratory Function: Patent airway with normal (patient baseline) respiratory exam Cardiovascular Function: Hemodynamically Stable Hydration Status: Adequately Hydrated Nausea & Vomiting: No Nausea or Vomiting Pain: Pt. Denies Any Pain Peripheral Nerve Block: Patient did not receive a nerve block
[2023-08-16 08:30] VITALS: BP 159/65; PULSE 72; RESP 16; TEMP 36.1; O2SAT 99
== END 2023-08-16 08:35 | disposition home or self-care (01) ==
LOC: SUR 06:12
PROVIDERS: PCP Nurse Practitioner Family; Visit Provider Ophthalmology
PROC: (CPT 66984; principal; 2023-08-16 07:30)
DX: H25.11 Age-related nuclear cataract, right eye (principal); K21.9 Gastro-esophageal reflux disease without esophagitis; Z98.42 Cataract extraction status, left eye
CPT/HCPCS: 66984; 00123; V2632; J2003

== ENCOUNTER → 2023-10-11 00:59 | Outpatient (CLI) | payer MEDICARE, MEDICAID, SELFPAY ==
--- NOTE | 2023-10-11 08:00 | DI.MAMMO_ITS ---
Exam(s) MAMMO SCREENING EXAM: MAMMO SCREENING CLINICAL HISTORY: screening,Z12.39 TECHNIQUE: Mammograms were interpreted according to the usual protocol including computer analysis w [employer] CAD system, tomosynthesis and C-view imaging. COMPARISON: 2014 through 2020 FINDINGS: The breasts are composed of heterogeneously dense fibroglandular densities, Breast Density category C . No suspicious masses or suspicious microcalcifications are seen. No skin thickening or abnormal axillary lymph nodes are seen. There has been no significant change from prior exams. IMPRESSION: BI-RADS Category 1, Negative mammogram. Yearly screening mammography is recommended. Breast Density Category C, heterogeneously Dense. The mammogram demonstrates the patient's breast tissue is dense. Dense breast tissue is very common a nd is not abnormal but dense breast tissue can make it harder to find cancer on a mammogram. Also, de nse breast tissue may increase breast cancer risk. This information about the result of the mammogram report was provided to the patient to raise their awareness. Use this report when you speak with the patient about their risks for breast cancer, which includes their family history. At that time, you may recommend additional screening tests (Ultrasound or MRI) as they might be useful based on their r isk. A negative radiographic report should not delay biopsy if a dominant or clinically suspicious mass is present. Up to ten percent of cancers are not identified on mammography. A negative report may reinforce clinical impression. Adenosis and dense breasts may obscure an underlying neoplasm. False positive reports average 6 to 10%.
== END ==
PROVIDERS: PCP Nurse Practitioner Family; Visit Provider Nurse Practitioner Family
DX: Z12.31 Encounter for screening mammogram for malignant neoplasm of breast (principal); R92.333 Mammographic heterogeneous density, bilateral breasts
CPT/HCPCS: 77063; 77067

== ENCOUNTER 2023-10-21 04:40 | Outpatient (CLI) | payer MEDICARE, MEDICAID, SELFPAY ==
[2023-10-21 10:14] LABS: TSH (W/Ref FT4) 1.07 uIU/mL (0.36-3.74)
[2023-10-21 10:45] LABS: Vitamin D 25 Total 37.5 ng/mL (30-100)
[2023-10-21 19:20] LABS: Hepatitis C Ab w Rflx HCV PCR Negative (Negative)
[2023-10-22 09:25] LABS: Lab Add On Test DONE
[2023-10-22 19:50] LABS: HBs Antibody, Quant >1000.0 mIU/mL (See Note); Hep B Surface Ab Positive (See Note); Hepatitis B Core Antibody Negative (Negative); Hepatitis B Surface Antigen Negative (Negative)
[2023-10-22 19:52] LABS: HIV-1/2 Ag & Ab Screen Negative (Negative)
== END 2023-10-21 04:41 | disposition home or self-care (01) ==
LOC: LBO 04:40
PROVIDERS: PCP Nurse Practitioner Family; Visit Provider Student in an Organized Health Care Education/Training Program
DX: Z11.59 Encounter for screening for other viral diseases (principal); E04.2 Nontoxic multinodular goiter; E55.9 Vitamin D deficiency, unspecified; Z11.4 Encounter for screening for human immunodeficiency virus [HIV]
CPT/HCPCS: 36415; 82306; 86704; 86706; 86803; 87340; 87389; 84443

== ENCOUNTER 2024-04-03 15:14 | Outpatient (REF) | payer MEDICARE, MEDICAID, SELFPAY ==
[2024-04-03 12:06] LABS: Creatinine,24hr Ur 0.59 g/24hr (0.60-1.80); Total Volume 1100 ml
[2024-04-04 09:06] LABS: Calcium Urine 7.8 mg/dL (See Note); Calcium Urine 24 hr 86 mg/24hr (100-300); Timed Urine Volume 1100 mL
== END 2024-04-03 15:15 | disposition home or self-care (01) ==
LOC: LBN 15:14
PROVIDERS: PCP Nurse Practitioner Family; Visit Provider Student in an Organized Health Care Education/Training Program
DX: M81.0 Age-related osteoporosis without current pathological fracture (principal)
CPT/HCPCS: 81050; 82340; 82570

== ENCOUNTER 2024-04-13 01:23 | Outpatient (CLI) | payer MEDICARE, MEDICAID, SELFPAY ==
--- NOTE | 2024-04-13 06:30 | DI.US_ITS ---
Exam(s) US THYROID EXAM: US THYROID CLINICAL HISTORY: Assess for change,MULTINODULAR GOITER, E04.2. TECHNIQUE: Ultrasound thyroid performed using standard protocol. COMPARISON: US US THYROID from 12/14/2022 US US NEEDLE LOCAL OTHER WO RAD from 01/22/2023 FINDINGS: ISTHMUS: mm RIGHT LOBE: Size: cm Echogenicity: Normal. Vascularity: Normal. Nodules: There are 3 nodule seen in the right lobe of the thyroid gland. The most superior and poste rior nodule measures 6.9 x 5.0 mm. This compares to 6.2 x 5.4 mm on the prior examination. The more anterior nodule measures 8.9 x 5.0 mm. This compares to 9.0 x 6.2 mm on the prior examination. The more inferior nodule measures 6.6 x 4.9 mm. This compares to 5.8 x 3.7 mm on the prior examination. No new nodules are seen in the right lobe. All of these nodules are mixed cystic and solid. They do not meet the criteria for follow-up or aspiration. They would be TI rads level 2 nodules. LEFT LOBE: Size: cm Echogenicity: Normal. Vascularity: Normal. Nodules: There is a complex fluid-filled nodule seen on the left. There are peripheral soft tissue n odules present. Macrocalcifications are noted. This nodule measures 3.5 x 2.7 x 3.2 cm. This donny res to 3.5 x 2.5 x 2.6 cm on the prior examination. This nodule was biopsied in 01/22/2023. No other left thyroid nodules are seen. This is consistent with a TI rads level 3 nodule OTHER FINDINGS: None. IMPRESSION: Multinodular thyroid gland as described above. DATA REPOSITORY:
== END 2024-04-13 01:43 ==
LOC: DI 01:23
PROVIDERS: PCP Nurse Practitioner Family; Visit Provider Otolaryngology
DX: E04.2 Nontoxic multinodular goiter (principal)
CPT/HCPCS: 93306; 76536

== ENCOUNTER 2024-04-13 01:23 | Outpatient (CLI) | payer MEDICARE, MEDICAID, SELFPAY ==
--- NOTE | 2024-04-13 06:30 | DI.US_ITS ---
APPROVED REPORT EXAM: Comprehensive 2D, Doppler, and color-flow Echocardiogram Patient Location: Out-Patient Criminal Profiler: Ya Perez RDCS (AE) Indications: Systolic murmur Other Information Study Quality: Adequate Conclusion Normal left ventricular wall thickness and chamber size. Ejection fraction is 60%. Wall motion is n ormal Normal right ventricular size and function Both atria are mildly dilated Aortic valve is sclerotic and trileaflet with mild regurgitation Mild mitral annular calcification. Moderate mitral regurgitation Estimated right ventricular systolic pressure is 30 mmHg Wall motion Left Ventricle The left ventricle is normal size. The left ventricular systolic function is normal. The left ventric ular ejection fraction is within the normal range. There is normal left ventricular wall thickness. T here is normal LV segmental wall motion. There is no ventricular septal defect visualized. LVEF is 60 %. Right Ventricle The right ventricle is normal size. The right ventricular systolic function is normal. Atria Left atrium is mildly dilated. Right atrium is mildly dilated. The interatrial septum is intact with no evidence for an atrial septal defect. Aortic Valve The Aortic valve is mildly sclerotic. Aortic valve is trileaflet. There is no aortic valvular stenosi s. Mild aortic regurgitation. Mitral Valve Mild mitral annular calcification. No evidence of mitral valve stenosis. Moderate mitral regurgitati on. Tricuspid Valve The tricuspid valve is normal in structure. There is no tricuspid valve stenosis. Trace to mild tricu spid regurgitation. The RVSP is 29.6 mmHg. Pulmonic Valve Pulmonic valve is not well visualized. There is no pulmonic valvular stenosis. There is no pulmonic valvular regurgitation. Great Vessels The aortic root is normal in size. The ascending aorta is normal in size. Aortic arch is not well vis ualized. IVC is normal in size and collapses >50% with inspiration. Pericardium There is no pericardial effusion. 2D Dimensions IVSD d PLAX 0.84 cm F: 0.6-1.0 Ao Root d 2.71 cm F: 2.7 - 3.3 LVPW d PLAX 0.80 cm F: 0.6 - 1.0 Ao Asc Diam d 2.96 cm F: 2.3 - 3.1 LVID d PLAX 4.49 cm F: 3.8 - 5.2 LVDs 3.16 cm F: 2.2 - 3.5 LV EF Teichholz 56.7 % FS 29.55 % LV EDV (Teich) 91.9 mL LV ESV (Teich) 39.8 mL M-Mode TAPSE 2.60 cm (M/F) >1.7 Auto EF LV EDV A4C 90.2 mL LV EDV A2C 93.9 mL LV EDV BP 92.8 mL LV ESV A4C 38.2 mL LV ESV A2C 38.4 mL LV ESV BP 37.9 mL LVEF(%) A4C 57.6 % LVEF(%) A2C 59.1 % LVEF(%) BP 59.2 % LV SV A4C 51.9 ml LV SV A2C 55.5 ml LV SV BP 55.0 ml LV CO A4C 2.9 L/min LV CO A2C 3.2 L/min LV CO BP 3.1 L/min HR A4C 56.25 BPM HR A2C 58.07 BPM LV EDV Index (BP) LA Volume LA Length A4C 4.5 cm LA Length A2C 4.7 cm LA Area A4C s 17.42 cm2 LA Area A2C s 14.80 cm2 LA Vol A4C A-L 56.75 mL LA Vol A2C A-L 39.38 mL LA Vol Biplane A-L 48.2 mL LA Vol/BSA A4C A-L LA Vol/BSA A2C A-L LA Vol/BSA BP A-L 32.4 mL/m2 LA Vol A4C MOD 52.1 mL LA Vol A2C MOD 36.0 mL LA Vol BP MOD 43.7 mL RA Volume RA Area A4C 13.7 cm2 RA ESV A4C (A-L) 36.5mL RA Vol/BSA A4C A-L RA Length A4C 4.3 cm RA ESV A4C (MOD) 34.7mL LV Diastology MV E' medial 0.092 (>0.07 m/s) MV E Vmax 1.02 (0.4-1.3 m/s) MV E/E' MED 11.00 (<14) MV A Vmax 1.15 (0.4-1.3 m/s) MV E' lateral 0.067 (>0.1 m/s) E/A Ratio 0.9 MV E/E' LAT 15.28 (<14) MV E' Average 0.080 m/s MV E/E'(average) 12.79 Aortic Valve AoV Vmax 1.40 m/s LVOT Vmax 1.22 m/s AoV Peak Grad 37.9 mmHg LVOT Peak Grad 6.0 mmHg AoV Area (Vmax) 2.18 cm2 LVOT VTI 0.257 m AoV VTI 0.363 m LVOT Mean Grad 2.4 mmHg AoV Mean Don. 0.97 m/s LVOT SV 64.31 mL AoV Mean Grad 4.3 mmHg LVOT Diam s 1.75 cm AoV Area (VTI) 1.77 cm2 AV Regurg Peak Gr. 7.85 mmHg Velocity Ratio 0.87 AR Decel [place] 1.8m/sec2 AR DT 2314 msec AR PHT 671 msec AR Vmax 4.12 m/s Mitral Valve MV DT 229 (160-240 msec) MV Vmax TIPS 1.12 m/s MV Mean Grad 1.9 (<2mmHg) MV VTI 0.402 m Pulmonary Valve PV Vmax 0.91 (0.5-1.5 m/s) RVOT Vmax 0.85 m/s PV Peak Grad 3.3 mmHg RVOT Peak Gr. 2.9 mmHg PV Mean Don 0.68 m/s RVOT VTI 0.216 m PV Mean Grad 2.0 mmHg RVOT Mean Gr. 1.7 mmHg Tricuspid Valve RA Pressure 3.00 mmHg TR Vmax 2.58 m/s TV S' 0.17 m/s TR Peak Grad 26.5 mmHg RVSP (TR) 29.6 mmHg
== END 2024-04-13 01:43 ==
LOC: DI 01:23
PROVIDERS: PCP Nurse Practitioner Family; Visit Provider Nurse Practitioner Family
DX: R01.1 Cardiac murmur, unspecified (principal); I35.1 Nonrheumatic aortic (valve) insufficiency
CPT/HCPCS: 93306

== ENCOUNTER 2024-06-17 11:16 | Emergency (ER) | payer MEDICARE, MEDICAID, SELFPAY ==
[2024-06-17 11:17] VITALS: BP 190/72; PULSE 72; RESP 16; TEMP 36.6; O2SAT 96
--- NOTE | 2024-06-17 11:30 | RT.EKG_ITS ---
APPROVED REPORT Exam: Resting ECG Reason for Exam: epigastric pain Patient Location: E HR:66 bpm ECG Measurements Heart Rate 66 AXIS NC 185 P 72 QRSd 80 QRS 35 QT 435 T 50 QTc 455 Conclusion Sinus rhythm, rate 66 PVC No interval abnormalities No STEMI No priors available for comparison
--- NOTE | 2024-06-17 11:30 | DI.RAD_ITS ---
Exam(s) XR CHEST 2V PA LATERAL EXAM: XR CHEST 2V PA LATERAL CLINICAL HISTORY: ? Hemoptysis TECHNIQUE: 2D digital imaging was performed of the chest. Two images were obtained. PA and lateral views were obtained. COMPARISON: CR,XR XR PORTABLE CHEST AP from 04/07/2022 FINDINGS: MEDIASTINUM: Normal. HEART: Normal. PULMONARY VASCULATURE: Normal. LUNGS: Clear. PLEURAL SPACE: No pleural effusion or pneumothorax. BONE:Within normal limits for the patient's age. OTHER FINDINGS:Normal. IMPRESSION: No acute pulmonary findings. DATA REPOSITORY: RADIATION DOSE DELIVERED:
--- NOTE | 2024-06-17 11:45 | ED.GENADUL_ITS ---
Discharge Plan Disposition Patient Disposition: Home Condition: Stable Discharge Details Clinical Impression: GERD (gastroesophageal reflux disease), Hypertension, Crohn's disease, Mitral valve regurgitation, Bloody vomitus Primary Care Provider: Unknown,Unknown ED Provider: Lolita Tsang Home Meds and New Rx's Prescriptions: No Action fluocinonide 0.05 % cream 1 applic topical BID loperamide [Imodium A-D] 2 mg capsule 2 mg PO Q6H PRN cyanocobalamin (vitamin B-12) 1,000 mcg/mL solution 1,000 mcg IJ QMONTH Qty: 1 Entyvio 300 mg recon soln 300 mg IV Q6W Systane Complete PF 0.6 % drops 1 drp ophthalmic (eye) QID ergocalciferol (vitamin D2) [Vitamin D2] 1,250 mcg (50,000 unit) capsule 1,250 mcg PO .2xweek Evenity 210mg/2.34mL ( 105mg/1.17mLx2) syringe 210 mg subcut QMONTH (DME) BD Integra Syringe 3 mL 25 gauge x 1 syringe See Rx Instructions .ROUTE .MEDSUPPLY Qty: 50 Patient Comments: USE 1 SYRINGE EVERY 30 DAYS Rx Instructions: As directed multivitamin [One Daily] 1 EACH tablet 1 ea PO DAILY acetaminophen [Tylenol] 325 MG tablet 325 mg PO PRN vitamin B complex [B-Complex] 1 EACH tablet 1 ea PO DAILY fluticasone propionate [Flonase Allergy Relief] 50 mcg/actuation spray,suspension 2 spray intranasal DAILY Qty: 48 4RF Rx Instructions: administer into each nostril amlodipine 10 mg tablet 10 mg PO DAILY Qty: 90 3RF ferrous gluconate 324 mg (37.5 mg iron) tablet 324 mg PO BID Qty: 180 3RF cholestyramine (with sugar) 4 gram powder 1 pwd PO DAILY Discharge Instructions Instructions: Acid reflux and GERD in adults Additional Instructions: You were seen in the emergency department today for evaluation of some blood in your vomit yesterday as well as epigastric abdominal pain, concerning for your acid reflux/GERD. In our department you had a full physical examination performed, had laboratory studies that were reassuring and you do not have any sign of anemia. You need to continue to take all of your medications including your Prilosec, and you need to follow-up with your GI doctor to discuss endoscopy and reevaluation. I also provided you with a referral to our general surgeons who do endoscopies in the outpatient environment. You did not have any bleeding evident on our evaluation but if you do have recurrence of blood in your vomit, or any other concerns you can return to the emergency department for reevaluation. Thank you for allowing us to be part of your care. HPI General Mode of arrival: ambulatory . Date/Time Provider Initiated Documentation: 06/17/24 11:20 . Limitations to Documentation: no limitations . Information obtained by: patient and old records reviewed . HPI Narrative: HPI: This is a 78-year-old female patient with a past medical history significant for Crohn's disease, followed by [facility] GI Dr. Cunningham, a history of GERD on Prilosec, mitral valve regurgitation, who is presenting for evaluation of epigastric abdominal pain. She reports that she also had an episode yesterday where she coughed or spit up some bloody sputum, states that she does not feel like she coughed it out of her lungs, but states that she feels she coughed out of her esophagus. This is associated with nausea and she had an episode of vomiting. States that she has had coughing with sputum production today that was nonbloody. Reports that she has been taking her medications at home for her GERD, including Prilosec and GI cocktails, states that she has not taken those medications yet today. The patient cannot recall when the last time she had a endoscopy was. Reports that she called her GI doctor this morning but has not yet heard back from their clinic. Currently scheduled for a visit in July. States that she has not had much to eat or drink today given her pain. Denies black tarry stools or blood in her stool. Exam: Gen: Awake and alert, in no apparent distress HEENT: Non-icteric sclera Neck: Supple Lungs: No apparent respiratory distress, normal respiratory effort. CV: Appears well perfused, strong distal pulses Abdomen: Non-distended, soft, tender to palpation in the epigastric region without rigidity, rebound, or guarding. MSK: Moves 4 extremities without apparent limitation in ROM Skin: Visualized skin without rashes, cyanosis. Neuro: Normal Gait, no obvious focal deficits or facial asymmetry. Speaks in full, clear sentences. Psych: Appropriate for situation. MDM: This is a 78-year-old female patient presenting for evaluation of epigastric abdominal pain, as well as questionable hemoptysis versus hematemesis. Differential includes but is not limited to GERD, gastric ulcer, pancreatitis, esophagitis, and I certainly considered pulmonary hemorrhage though it seems less consistent with her GERD symptoms. Upper GI bleed was considered, no bright red blood per rectum to suggest lower GI bleed. The patient is reassuringly without any concerning abdominal examination to suggest bowel obstruction, mesenteric ischemia, or gastric perforation. Considered anemia, coagulopathy, metabolic and electrolyte derangements. I will provide the patient with a dose of Zofran as well as Mylanta for her symptom management. We will obtain an EKG to ensure that she is not experiencing atypical ACS symptoms, and obtain laboratory studies to include CBC, CMP, magnesium, troponin, lipase, INR, and type and screen. I will obtain a chest x-ray to evaluate for any evidence of pulmonary hemorrhage. ED Course: I independently interpreted the laboratory studies, which show no significant leukocytosis, anemia, or thrombocytopenia. The chemistry panel is without evidence of significant electrolyte abnormality, kidney dysfunction, or liver injury. Troponin negative, paced low. Chest x-ray shows no abnormalities to suggest pulmonary hemorrhage. The patient had significant improvement in her symptoms with the above-noted medications. I am most concerned for GERD, and the patient was monitored in our emergency department and had no recurrence of hematemesis while under my care. The patient is certainly going to require endoscopy, is already on a PPI and was encouraged to continue it, and I provided her with a referral for outpatient endoscopy with general surgery. At this time, the patient has had a full medical evaluation and is safe for discharge to home. They are hemodynamically stable, ambulatory, and tolerating PO. They are understanding of the follow-up plan and return precautions. They left our facility without incident. Lolita Tsang MD Related Data Home Medications ?Medication ?Instructions ?Recorded ?Confirmed acetaminophen 325 mg tablet 325 mg PO PRN 12/10/12 06/17/24 (Tylenol) multivitamin (One Daily tablet) 1 ea PO DAILY 12/10/12 06/17/24 vitamin B complex (B-Complex 1 ea PO DAILY 12/10/12 06/17/24 tablet) cyanocobalamin (vitamin B-12) 1,000 mcg IJ [facility] #1 vial 06/27/22 06/17/24 1,000 mcg/mL injection solution loperamide 2 mg capsule (Imodium 2 mg PO Q6H PRN 06/27/22 06/17/24 A-D) propylene glycol (PF) 0.6 % eye 1 drp ophthalmic (eye) QID 01/18/23 06/17/24 drops (Systane Complete PF) fluocinonide 0.05 % topical cream 1 applic topical BID 05/22/23 06/17/24 fluticasone propionate 50 2 spray intranasal DAILY #48 grams 05/23/23 06/17/24 mcg/actuation nasal spray,suspension (Flonase Allergy Relief) romosozumab-aqqg 210 mg/2.34 210 mg subcut QMONTH 05/30/23 06/17/24 mL(105 mg/1.17 mL x2)subcutaneous syringe (Evenity) amlodipine 10 mg tablet 10 mg PO DAILY #90 tabs 07/15/23 06/17/24 ferrous gluconate 324 mg (37.5 mg 324 mg PO BID #180 tabs 08/27/23 06/17/24 iron) tablet ergocalciferol (vitamin D2) 1,250 1,250 mcg PO .2xweek 09/27/23 06/17/24 mcg (50,000 unit) capsule (Vitamin D2) vedolizumab 300 mg intravenous 300 mg IV Q6W 09/27/23 06/17/24 solution (Entyvio) syringe with needle, safety 3 mL #50 ea 03/30/24 06/17/24 25 gauge x 1 (BD Integra Syringe) cholestyramine (with sugar) 4 gram 1 pwd PO DAILY 06/17/24 06/17/24 oral powder Previous Rx's ?Medication ?Instructions ?Recorded fluticasone propionate 50 2 spray intranasal DAILY #48 grams 05/23/23 mcg/actuation nasal spray,suspension (Flonase Allergy Relief) amlodipine 10 mg tablet 10 mg PO DAILY #90 tabs 07/15/23 ferrous gluconate 324 mg (37.5 mg 324 mg PO BID #180 tabs 08/27/23 iron) tablet Allergies Allergy/AdvReac Type Severity Reaction Status Date / Time latex Allergy Severe SKIN RASH; Verified 06/17/24 11:25 BLISTERS infliximab (From Remicade) Allergy Intermediate Flushing, Verified 06/17/24 11:25 puffiness in face metronidazole (From Flagyl) Allergy Intermediate RASH Verified 06/17/24 11:25 esomeprazole Allergy Unknown UPPER BODY Verified 06/17/24 11:25 RASH Sulfa (Sulfonamide Allergy Unknown Other (See Verified 06/17/24 11:25 Antibiotics) Comment) clindamycin AdvReac Severe GI UPSET Verified 06/17/24 11:25 azithromycin AdvReac Intermediate gi intol. Verified 06/17/24 11:25 diarrhea goas bloating cramps potassium clavulanate (From AdvReac Intermediate diarrhea Verified 06/17/24 11:25 Augmentin) omeprazole AdvReac Mild NAUSEA Verified 06/17/24 11:25 tymlos AdvReac Intermediate Skin Rash Uncoded 06/17/24 11:25 General Stated Complaint: Abd Prob CAPRICE: 3 Course Vital Signs Vital signs: Vital Signs Temperature 36.6 C 06/17/24 11:17 Pulse 72 06/17/24 11:17 Respiratory Rate 16 06/17/24 11:17 Blood Pressure 190/72 H 06/17/24 11:17 Pulse Oximetry 96 06/17/24 11:17 Temperature 36.6 C 06/17/24 11:17 Temperature Source Oral 06/17/24 11:17 Pulse 72 06/17/24 11:17 Respiratory Rate 16 06/17/24 11:17 Blood Pressure 190/72 H 06/17/24 11:17 Blood Pressure Position Sitting 06/17/24 11:17 Pulse Oximetry 96 06/17/24 11:17 Oxygen Delivery Method Room Air 06/17/24 11:17 Oxygen Flow Rate 0 06/17/24 11:17 Pain Level 7 06/17/24 11:17 Medical Decision Making Quality:SDOH Health Related Social Needs: No Data to Display PFSH All Active Problems (Updated 06/17/24 @ 14:40 by Lolita Tsang MD) Bloody vomitus (Acute) Mitral valve regurgitation (Chronic) Moderate on 2023 echo Anxiety (Chronic) Crohn's disease (Chronic) Followed by [facility] GI Hypertension (Chronic) Osteoporosis (Chronic) Dexa 2022. Followed by 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 Lysis of adhesions 2009. Ileocolic resection 2011, repeated 2020 History of bilateral tubal ligation S/P tonsillectomy and adenoidectomy Family History Mother , 69 Diabetes Stroke Father , 60 Myocardial infarction Heart disease Crohn's disease Sister , 70 No problems noted. Sister Crohn's disease Sister No problems noted. Maternal Grandfather No problems noted. Paternal Grandfather Crohn's disease Maternal Grandmother Liver disease Paternal Grandmother No problems noted. Daughter No problems noted. Daughter No problems noted. Daughter Down syndrome Collagenous colitis Social History Smoking/Tobacco Use Status: Former Tobacco Use tobacco type: cigarettes Quit Date: 05/20/79 Tobacco: How many years used: 15 Second Hand Exposure: Yes Smoking risk assessment performed?: Yes Alcohol Intake: current Alcohol Intake frequency: holidays/special occasions only Alcohol type: beer Drug use: Never Substance use type: does not use Counseling provided: none Adopted: No Caregiver/Support person: No Household members: children Housing: house Number of Children: 3 number of grandchildren: 7 Communication Needs: Hard of Hearing and Corrective Lenses current occupation: retired Pets and animals: No Sexually active: No Do you think of yourself as: straight/heterosexual Current gender identity: female What is your relationship status?: How often do you talk on the phone with friends or family?: twice per week How often do you get together with friends or relatives?: twice per week Do you belong to any clubs or organized social groups?: no Panel score (0-1 are the most socially isolated patients): 1 What type of physical activity do you participate in: walking Duration: 15-30 minutes/day Frequency: 3-4 times per week Oma/Congregation: Non amish Special oma needs: No Seatbelt use: always Drive intox or ride w/intox commercial driver's license driver: No Firearms in home: No Do you feel safe at home: Yes Do you feel safe in your relationship?: Yes Victim of physical abuse: No Victim of emotional abuse: No Victim of sexual abuse: No Would you like helpful sources: No Additional Social history: Lives at home with down syndrome daughter
[2024-06-17] MEDS: Ondansetron 4 MG/2 ML VIAL IVP (12:15)
[2024-06-17] MEDS: Mylanta Suspension 30 ML CUP PO (12:16)
[2024-06-17 12:17] LABS: Abs Immature Grans 0.03 10^3/uL (0.0-0.06); Absolute Basophil Count 0.08 10^3/uL (0.0-0.2); Absolute Lymphocyte Count 2.46 10^3/uL (1.2-3.4); Absolute Monocyte Count 0.74 10^3/uL (0.1-0.8); Absolute Neutrophil Count 5.05 10^3/uL (1.2-6.7); Basophils % 0.9 %; Eosinophils % 7.7 %; HCT 38.2 % (36.0-46.0); HGB 12.5 g/dL (11.2-15.7); Immature Grans % 0.3 %; Lymphocytes % 27.2 %; MCH 30.3 pg (27.0-33.0); MCHC 32.7 % (32.0-36.0); MCV 93 fL (80-95); Monocytes % 8.2 %; Neutrophils % 55.7 %; Platelet Count 278 10^3/uL (130-400); RBC 4.12 10^6/uL (3.93-5.22); RDW 14.2 % (11.7-14.6); RDW-SD 48.8 fL; WBC 9.06 10^3/uL (4.4-10.8)
[2024-06-17 12:30] LABS: Prothrombin Time 9.9 sec (9.1-11.1)
[2024-06-17 12:36] LABS: ALT 41 U/L (14-59); AST 25 U/L (15-37); Albumin 4.7 g/dL (3.4-5.0); Alkaline Phosphatase 85 U/L (46-116); Anion Gap 11.9 mmol/L (3-11); BUN 16 mg/dL (7-18); Bilirubin, Total 0.48 mg/dL (0.2-1.0); CO2 24.1 mmol/L (21.0-32.0); CREATININE 0.8 mg/dL (0.55-1.02); Calcium 9.7 mg/dL (8.5-10.1); Chloride 105 mmol/L (98-107); Glucose 101 mg/dL (74-106); Lipase 29 U/L (<78); Potassium 3.4 mmol/L (3.5-5.1); Sodium 141 mmol/L (136-145); Total Protein 8.9 g/dL (6.4-8.2); Troponin I 8 ng/L (<or=51)
[2024-06-17 12:59] VITALS: BP 125/88; PULSE 73; RESP 17; TEMP 36.6; O2SAT 98
[2024-06-17 14:27] LABS: Troponin I 10 ng/L (<or=51)
[2024-06-17 14:46] VITALS: BP 140/60; PULSE 69; RESP 18; TEMP 36.6; O2SAT 100
== END 2024-06-17 14:51 | disposition home or self-care (01) ==
PROVIDERS: Emergency Provider Emergency Medicine
DX: K92.0 Hematemesis (principal); K21.9 Gastro-esophageal reflux disease without esophagitis; I10 Essential (primary) hypertension; K50.90 Crohn's disease, unspecified, without complications; I34.0 Nonrheumatic mitral (valve) insufficiency
CPT/HCPCS: 36415; 80053; 83690; 86850; 86900; 86901; 93005; 96374; 99285; 71046; 83735; 84484; 85025; 85610; 93010; 99284; J2405

== ENCOUNTER 2024-07-02 02:42 | Outpatient (CLI) | payer MEDICARE, MEDICAID, SELFPAY ==
--- NOTE | 2024-07-02 | DI.DEXA_ITS ---
Exam(s) XR DEXA BONE DENSITY W/WO GILBERTO EXAM: XR DEXA BONE DENSITY W/WO GILBERTO CLINICAL HISTORY: AGE RELATED OSTEOPOROSIS W/O CURRENT PATHOLOGICAL FRACTURE, M81.0 TECHNIQUE: Hologic Horizon C densitometer analysis of left hip, lumbar spine and right forearm. La teral survey image of the thoracic and lumbar spine. COMPARISON: DX GILBERTO from 02/04/2008 DX DEXA BONE DENSITY WITH GILBERTO from 04/07/2013 CR XR DEXA BONE DENSITY W/WO GILBERTO from 06/08/2022 FINDINGS: Lateral view of the thoracic and lumbar spine shows mild compression fractures of T11 through L1. Bone mineral density measurements of the lumbar spine correspond to a total T-score of -3.7, in the osteoporotic range. This is not significantly changed from 2007 but represents a 40 percent increase from 2022. Bone mineral density measurements of the left hip correspond to a total T-score of -2.6, in the oste oporotic range. This represents 4.5 percent increase from 2022 but a 17.9 percent decrease compared with 2007. The femoral neck T-score is -3.3, in the osteoporotic range.. Theright forearm bone mineral density measurements correspond to a T-score of the distal 3rd of -4.0 , in the osteoporotic range. This is unchanged from 2022 represents a 24 percent decrease from 2012. The forearm was not analyzed in 2007. IMPRESSION: Osteoporosis of the spine, hip and forearm with increased densities compared to previous exam.
== END 2024-07-02 03:02 ==
LOC: DI 02:42
PROVIDERS: Visit Provider Student in an Organized Health Care Education/Training Program
DX: M81.0 Age-related osteoporosis without current pathological fracture (principal)
CPT/HCPCS: 77080

== ENCOUNTER → 2024-07-10 10:13 | Outpatient (BNVA) | payer MEDICARE, MEDICAID, SELFPAY | PROVIDERS: PCP Nurse Practitioner Family; Referring Provider Nurse Practitioner Family; Visit Provider Physical Therapy Assistant | DX: K21.9 Gastro-esophageal reflux disease without esophagitis (principal) | CPT/HCPCS: 99214 ==

== ENCOUNTER 2024-07-14 02:45 | Emergency (ER) | payer MEDICARE, MEDICAID, SELFPAY ==
[2024-07-14 02:55] VITALS: BP 159/64; PULSE 110; RESP 20; TEMP 36.5; O2SAT 98
--- NOTE | 2024-07-14 03:00 | DI.CT_ITS ---
Exam(s) CT ABDOMEN PELVIS W EXAM: CT ABDOMEN PELVIS W CLINICAL HISTORY: diffuse abd pain, straining with BM, rectal pain. TECHNIQUE: Imaging Protocol: Axial computed tomography images with coronal and sagittal reformatted images were created and reviewed CONTRAST MATERIAL: Intravenous: Omnipaque 350 Contrast volume:75 ml Oral: no COMPARISON: CT CT ABDOMEN PELVIS W from 10/12/2020 FINDINGS: ABDOMEN and PELVIS: Lung Bases: No acute findings. Liver: Mildly enlarged. Mild to moderate hepatic steatosis.. No suspicious mass. Gallbladder and biliary tract: No radiodense calculus. No wall thickening or pericholecystic fluid. No biliary dilation. Pancreas: Normal density. No abnormal calcifications or inflammatory process. No evidence of mass. Spleen: Normal. Kidneys: Normal size, contour and axis. No radiodense stones. No obstructive uropathy. No suspicious masses seen. Adrenal glands: No masses seen. Vasculature: Abdominal aorta non-dilated. Soft tissues: Unremarkable. Bladder: No gross wall thickening. No calculi.No focal mass. Bowel: Partial right hemicolectomy. There is a question of mild wall thickening near the anastomosis versus under distension.. There is a large quantity of stool seen distending the rectum. Appearanc e consistent with fecal impaction. Remainder of the colon is moderately distended with stool and flu id. No obstruction. No bowel wall thickening. Peritoneal cavity: No ascites. No focal collection. No mesenteric inflammatory response. No free air . Bones: Old mild compression fracture of the superior endplate of L1 which also shows a small node. Reproductive organs: Unremarkable. Lymph nodes: No pathologically enlarged lymph nodes. IMPRESSION:: Large quantity of stool in the rectum consistent with fecal impaction. Question of mild wall thickening at the ileocolic anastomosis versus under distension. RADIATION DOSE DELIVERED: 225.02mGy.cm Total DLP DATA REPOSITORY: All CT scans at this facility are submitted to the National Radiology Data Registry (NRDR) Dose Index Registry (DIR) with the [employer] ([employer]). RADIATION OPTIMIZATION: All CT scans at this facility use at least one of these dose optimization te chniques: automated exposure control; mA and/or kV adjustment per patient size (includes targeted exa ms where dose is matched to clinical indication); or iterative reconstruction.
--- NOTE | 2024-07-14 03:16 | ED.GENADUL_ITS ---
Discharge Plan Discharge Details Chief Complaint: Abd Prob Primary Care Provider: Bhargavi Lombardo ED Provider: Bruna Esqueda Home Meds and New Rx's Prescriptions: No Action fluocinonide 0.05 % cream 1 applic topical BID loperamide [Imodium A-D] 2 mg capsule 2 mg PO Q6H PRN cyanocobalamin (vitamin B-12) 1,000 mcg/mL solution 1,000 mcg IJ QMONTH Qty: 1 Entyvio 300 mg recon soln 300 mg IV Q6W Systane Complete PF 0.6 % drops 1 drp ophthalmic (eye) QID ergocalciferol (vitamin D2) [Vitamin D2] 1,250 mcg (50,000 unit) capsule 1,250 mcg PO .2xweek Evenity 210mg/2.34mL ( 105mg/1.17mLx2) syringe 210 mg subcut QMONTH (DME) BD Integra Syringe 3 mL 25 gauge x 1 syringe See Rx Instructions .ROUTE .MEDSUPPLY Qty: 50 Patient Comments: USE 1 SYRINGE EVERY 30 DAYS Rx Instructions: As directed multivitamin [One Daily] 1 EACH tablet 1 ea PO DAILY acetaminophen [Tylenol] 325 MG tablet 325 mg PO PRN vitamin B complex [B-Complex] 1 EACH tablet 1 ea PO DAILY fluticasone propionate [Flonase Allergy Relief] 50 mcg/actuation spray,suspension 2 spray intranasal DAILY Qty: 48 4RF Rx Instructions: administer into each nostril ferrous gluconate 324 mg (37.5 mg iron) tablet 324 mg PO BID Qty: 180 3RF amlodipine 10 mg tablet 10 mg PO DAILY Qty: 90 2RF cholestyramine (with sugar) 4 gram powder 1 pwd PO DAILY HPI General Mode of arrival: ambulatory . Date/Time Provider Initiated Documentation: 07/14/24 02:48 . Limitations to Documentation: no limitations . Information obtained by: patient . HPI Narrative: 78yo F with hx GERD, Crohns (due for infusion this morning), prior rectal stricture which required dilation during colonoscopy, presenting for abdominal and rectal pain. Symptoms started two days ago. Abdominal pain is diffuse, crampy, moderate; feels like when her Crohn's is acting up and it is not atypical for her to have this pain in the 3-4 days before she is next due for infusion. She also has dull, severe, non-focal rectal pain. It is painful to sit down. Has been straining frequently over the past two days to have a bowel movement. Did pass a small amount of soft brown stool yesterday. No blood in stool or when wiping. Mild nausea particularly when she is straining on the toilet, no vomiting. Took tylenol yesterday evening for pain; nothing yet today. Has not tried anything for constipation. She is otherwise in her usual state of health with no fevers, chills, rash, dysuria, hematuria, or other concerns. Related Data Home Medications ?Medication ?Instructions ?Recorded ?Confirmed acetaminophen 325 mg tablet 325 mg PO PRN 12/10/12 07/14/24 (Tylenol) multivitamin (One Daily tablet) 1 ea PO DAILY 12/10/12 07/14/24 vitamin B complex (B-Complex 1 ea PO DAILY 12/10/12 07/14/24 tablet) cyanocobalamin (vitamin B-12) 1,000 mcg IJ QMONTH #1 vial 06/27/22 07/14/24 1,000 mcg/mL injection solution loperamide 2 mg capsule (Imodium 2 mg PO Q6H PRN 06/27/22 07/14/24 A-D) propylene glycol (PF) 0.6 % eye 1 drp ophthalmic (eye) QID 01/18/23 07/14/24 drops (Systane Complete PF) fluocinonide 0.05 % topical cream 1 applic topical BID 05/22/23 07/14/24 fluticasone propionate 50 2 spray intranasal DAILY #48 grams 05/23/23 07/14/24 mcg/actuation nasal spray,suspension (Flonase Allergy Relief) [id number] 210 mg/2.34 210 mg subcut QMONTH 05/30/23 07/14/24 mL(105 mg/1.17 mL x2)subcutaneous syringe (Evenity) ferrous gluconate 324 mg (37.5 mg 324 mg PO BID #180 tabs 08/27/23 07/14/24 iron) tablet ergocalciferol (vitamin D2) 1,250 1,250 mcg PO .2xweek 09/27/23 07/14/24 mcg (50,000 unit) capsule (Vitamin D2) vedolizumab 300 mg intravenous 300 mg IV Q6W 09/27/23 07/14/24 solution (Entyvio) syringe with needle, safety 3 mL #50 ea 03/30/24 07/14/24 25 gauge x 1 (BD Integra Syringe) cholestyramine (with sugar) 4 gram 1 pwd PO DAILY 06/17/24 07/14/24 oral powder amlodipine 10 mg tablet 10 mg PO DAILY #90 tabs 07/09/24 07/14/24 Previous Rx's ?Medication ?Instructions ?Recorded fluticasone propionate 50 2 spray intranasal DAILY #48 grams 05/23/23 mcg/actuation nasal spray,suspension (Flonase Allergy Relief) ferrous gluconate 324 mg (37.5 mg 324 mg PO BID #180 tabs 08/27/23 iron) tablet amlodipine 10 mg tablet 10 mg PO DAILY #90 tabs 07/09/24 Allergies Allergy/AdvReac Type Severity Reaction Status Date / Time latex Allergy Severe SKIN RASH; Verified 07/14/24 02:59 BLISTERS infliximab (From Remicade) Allergy Intermediate Flushing, Verified 07/14/24 02:59 puffiness in face metronidazole (From Flagyl) Allergy Intermediate RASH Verified 07/14/24 02:59 esomeprazole Allergy Unknown UPPER BODY Verified 07/14/24 02:59 RASH Sulfa (Sulfonamide Allergy Unknown Other (See Verified 07/14/24 02:59 Antibiotics) Comment) clindamycin AdvReac Severe GI UPSET Verified 07/14/24 02:59 azithromycin AdvReac Intermediate gi intol. Verified 07/14/24 02:59 diarrhea goas bloating cramps potassium clavulanate (From AdvReac Intermediate diarrhea Verified 07/14/24 02:59 Augmentin) omeprazole AdvReac Mild NAUSEA Verified 07/14/24 02:59 tymlos AdvReac Intermediate Skin Rash Uncoded 07/14/24 02:59 General Stated Complaint: Abd Prob CAPRICE: 3 Review of Systems Narrative: see HPI Exam Narrative Exam Narrative: General: Alert, non-toxic Head: Normocephalic, atraumatic Neck: Trachea midline, ?Neck supple. ENT: ?MMM.? Cardiac: ?RRR, no murmurs appreciated Resp: No respiratory distress. CTAB. Abd: ?Soft, non-distended, diffusely TTP. No rebound or guarding. : ?No suprapubic tenderness. Anal: No external hemorrhoids. Perianal area TTP; no skin changes or palpable abscess. Internal exam deferred until after CT. Extremities: ?No deformities.? No peripheral edema. Neurologic: GCS 15. ? Moves all extremities freely against gravity Course Vital Signs Vital signs: Vital Signs Temperature 36.5 C 07/14/24 02:55 Pulse 110 H 07/14/24 02:55 Respiratory Rate 20 07/14/24 02:55 Blood Pressure 159/64 H 07/14/24 02:55 Pulse Oximetry 98 07/14/24 02:55 Temperature 36.5 C 07/14/24 02:55 Temperature Source Oral 07/14/24 02:55 Pulse 110 H 07/14/24 02:55 Respiratory Rate 20 07/14/24 02:55 Blood Pressure 159/64 H 07/14/24 02:55 Blood Pressure Position Standing 07/14/24 02:55 Pulse Oximetry 98 07/14/24 02:55 Oxygen Delivery Method Room Air 07/14/24 02:55 Oxygen Flow Rate 0 07/14/24 02:55 Pain Level 8 07/14/24 03:05 Comment Abd and Rectal Pain 07/14/24 02:55 Medical Decision Making 78yo F with hx GERD, Crohns (due for infusion this morning), prior rectal stricture which required dilation during colonoscopy, presenting for abdominal and rectal pain and straining to defecate for two days. Last BM yesterday, soft/brown/non-bloody. Abdominal pain is diffuse and feels typical of her symptoms when she is due for infusion. Rectal pain is dull, severe, and it hurts to sit. Slightly tachycardiac on arrival after ambulating into [facility]; vital signs otherwise reassuring. Non-toxic on exam, diffuse abd tenderness with no rebound or guarding. No external hemorrhoids on exam; she does have diffuse pe rianal tenderness to palpation with no palpable abscess. Will defer internal exam until after CT due to concern for possible stearcoral colitis. Not overtly septic; would not treat emprically with IVF or abx. HR improved to 70's on reassessment without intervention aside from PO tylenol. -Labs reviewed as below, CBC with leukocytosis to 17 (nonspecific), CMP with mild hypokalemia (oral replacement ordered) and no other actionable abnormalities, lipase not suggestive of pancreatitis, lactate normal. -CT abd pelvis independently reviewed; no clear obstruction or free fluid on my view though does have large amount of stool present in rectum, radiology read with distended rectum with large amount of feces. Rectal exam with fissures, tenesmus, mass; no hard stool palpable in rectal vaul t, distant soft stool barely palpable and soft brown stool on glove. Does not seem to be impacted. Will give enema here. Mineral oil enema produced very small amount of stool. Will try senna, miralax, and sodium phosphate enema. If able to produce reasonable qty of stool would consider discharge home; if not age, risk factors, and degree of discomfort will likely need admit/obs for cleanout. Signed out to oncoming physician; plan remains as above. Imaging Data Radiologic Study: Imaging: CT Scan Radiologist's impression: IMPRESSION: 1. The rectum is distended with a large amount of fecal material. Correlate clinically for fecal impaction. 2. Mild colonic thickening distal to ileocolic anastomosis. This may be due to incomplete distension. Colitis or neoplasm not excluded. Clinical correlation advised. 3. Additional findings as above. Lab Data Lab results reviewed: Yes I reviewed the patient's lab results. Labs: Laboratory Tests Range/Units 07/14/24 03:39 WBC (4.4-10.8) 10^3/uL 17.22 H RBC (3.93-5.22) 10^6/uL 4.06 Hgb (11.2-15.7) g/dL 12.3 Hct (36.0-46.0) % 36.9 MCV (80-95) fL 91 MCH (27.0-33.0) pg 30.3 MCHC (32.0-36.0) % 33.3 RDW (11.7-14.6) % 13.8 Plt Count (130-400) 10^3/uL 314 MPV (8.0-11.0) fL 10.9 Immature Gran % % 0.6 Neutrophils % % 84.7 Lymphocytes % % 9.7 Monocytes % % 4.3 Eosinophils % % 0.2 Basophils % % 0.5 Nucleated RBC % (0.0-0.3) % 0.0 Absolute Neutrophils (1.2-6.7) 10^3/uL 14.59 H Absolute Lymphocytes (1.2-3.4) 10^3/uL 1.67 Absolute Monocytes (0.1-0.8) 10^3/uL 0.74 Absolute Eosinophils (0.0-0.7) 10^3/uL 0.03 Absolute Basophils (0.0-0.2) 10^3/uL 0.09 VBG Lactate (<or=2.0) mmol/L 2.0 Sodium (136-145) mmol/L 142 Potassium (3.5-5.1) mmol/L 3.2 L Chloride (98-107) mmol/L 106 Carbon Dioxide (21.0-32.0) mmol/L 23.6 Anion Gap (3-11) mmol/L 12.4 H BUN (7-18) mg/dL 15 Creatinine (0.55-1.02) mg/dL 1.1 H Est GFR (CKD-EPI 2020) (mL/min/1.73m2) 51.11 Glucose (74-106) mg/dL 122 H Calcium (8.5-10.1) mg/dL 9.3 Total Bilirubin (0.2-1.0) mg/dL 0.52 AST (15-37) U/L 24 ALT (14-59) U/L 32 Alkaline Phosphatase (46-116) U/L 77 Total Protein (6.4-8.2) g/dL 8.3 H Albumin (3.4-5.0) g/dL 4.4 Lipase (<78) U/L 26 Quality:SDOH Health Related Social Needs: No Data to Display PFSH All Active Problems (Updated 06/17/24 @ 14:40 by Lolita Tsang MD) Bloody vomitus (Acute) Mitral valve regurgitation (Chronic) Moderate on 2023 echo Anxiety (Chronic) Crohn's disease (Chronic) [place] [facility] Hypertension (Chronic) Osteoporosis (Chronic) Dexa 2022. 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 Lysis of adhesions 2009. Ileocolic resection 2011, repeated 2020 History of bilateral tubal ligation S/P tonsillectomy and adenoidectomy Family History Mother , 69 Diabetes Stroke Father , 60 Myocardial infarction Heart disease Crohn's disease Sister , 70 No problems noted. Sister Crohn's disease Sister No problems noted. Maternal Grandfather No problems noted. Paternal Grandfather Crohn's disease Maternal Grandmother Liver disease Paternal Grandmother No problems noted. Daughter No problems noted. Daughter No problems noted. Daughter Down syndrome Collagenous colitis Social History Smoking/Tobacco Use Status: Former Tobacco Use tobacco type: cigarettes Quit Date: 05/20/79 Tobacco: How many years used: 15 Second Hand Exposure: Yes Smoking risk assessment performed?: Yes Alcohol Intake: current Alcohol Intake frequency: holidays/special occasions only Alcohol type: beer Drug use: Never Substance use type: does not use Counseling provided: none Adopted: No Caregiver/Support person: No Household members: children Housing: house Number of Children: 3 number of grandchildren: 7 Communication Needs: Hard of Hearing and Corrective Lenses current occupation: retired Pets and animals: No Sexually active: No Do you think of yourself as: straight/heterosexual Current gender identity: female What is your relationship status?: How often do you talk on the phone with friends or family?: twice per week How often do you get together with friends or relatives?: twice per week Do you belong to any clubs or organized social groups?: no Panel score (0-1 are the most socially isolated patients): 1 What type of physical activity do you participate in: walking Duration: 15-30 minutes/day Frequency: 3-4 times per week Oma/Yarsani: Non restorationism Special oma needs: No Seatbelt use: always Drive intox or ride w/intox dolly driver: No Firearms in home: No Do you feel safe at home: Yes Do you feel safe in your relationship?: Yes Victim of physical abuse: No Victim of emotional abuse: No Victim of sexual abuse: No Would you like helpful sources: No Additional Social history: Lives at home with down syndrome daughter
[2024-07-14] MEDS: Acetaminophen 500 MG TAB 1000 MG PO (03:24)
[2024-07-14 03:44] LABS: Absolute Lymphocyte Count 1.67 10^3/uL (1.2-3.4); Absolute Monocyte Count 0.74 10^3/uL (0.1-0.8); Absolute Neutrophil Count 14.59 10^3/uL (1.2-6.7); Basophils % 0.5 %; Eosinophils % 0.2 %; HCT 36.9 % (36.0-46.0); HGB 12.3 g/dL (11.2-15.7); Immature Grans % 0.6 %; Lymphocytes % 9.7 %; MCH 30.3 pg (27.0-33.0); MCHC 33.3 % (32.0-36.0); MCV 91 fL (80-95); MPV 10.9 fL (8.0-11.0); Monocytes % 4.3 %; Neutrophils % 84.7 %; Platelet Count 314 10^3/uL (130-400); RBC 4.06 10^6/uL (3.93-5.22); RDW 13.8 % (11.7-14.6); RDW-SD 46.5 fL; WBC 17.22 10^3/uL (4.4-10.8)
[2024-07-14] MEDS: Omnipaque 350 MG/ML 100 ML BTL IJ (03:45)
[2024-07-14 03:46] LABS: Absolute Basophil Count 0.09 10^3/uL (0.0-0.2); Absolute Eosinophil Count 0.03 10^3/uL (0.0-0.7)
[2024-07-14] MEDS: Normal Saline Flush 10 ML SYR IVP ×2 (03:46→08:39)
[2024-07-14] MEDS: Normal Saline - Diluent 50 ML VIAL IJ (03:47)
[2024-07-14 04:10] VITALS: BP 124/34; PULSE 75; RESP 16; TEMP 36.4; O2SAT 99
[2024-07-14 04:16] LABS: ALT 32 U/L (14-59); AST 24 U/L (15-37); Albumin 4.4 g/dL (3.4-5.0); Alkaline Phosphatase 77 U/L (46-116); Anion Gap 12.4 mmol/L (3-11); BUN 15 mg/dL (7-18); Bilirubin, Total 0.52 mg/dL (0.2-1.0); CO2 23.6 mmol/L (21.0-32.0); CREATININE 1.1 mg/dL (0.55-1.02); Calcium 9.3 mg/dL (8.5-10.1); Chloride 106 mmol/L (98-107); Estimated GFR 51.11 (mL/min/1.73m2); Glucose 122 mg/dL (74-106); Lipase 26 U/L (<78); Potassium 3.2 mmol/L (3.5-5.1); Sodium 142 mmol/L (136-145); Total Protein 8.3 g/dL (6.4-8.2)
--- NOTE | 2024-07-14 04:26 | DI.VRAD_ITS ---
PROCEDURE INFORMATION: Exam: CT Abdomen And Pelvis With Contrast Exam date and time: 07/14/2024 3:56 AM Age: 78 years old Clinical indication: Abdominal pain; Prior surgery; Surgery date: 6+ months; Surgery type: Appendectomy, resection of terminal ileum; Diffuse abd pain, straining with bm, rectal pain TECHNIQUE: Imaging protocol: Computed tomography of the abdomen and pelvis with contrast. Radiation optimization: All CT scans at this facility use at least one of these dose optimization techniques: automated exposure control; mA and/or kV adjustment per patient size (includes targeted exams where dose is matched to clinical indication); or iterative reconstruction. Contrast material: OMNIPAQUE 350; Contrast volume: 75 ml; Contrast route: INTRAVENOUS (IV); COMPARISON: CT ABDOMEN PELVIS W 10/12/2020 12:12 PM FINDINGS: Liver: Hepatic steatosis. Gallbladder and biliary ducts: Distended gallbladder. Question cholelithiasis. Pancreas: No CT evidence for acute pancreatitis. Spleen: No splenomegaly. Adrenal glands: Nodular adrenal thickening. Kidneys and ureters: No hydronephrosis or evidence for pyelonephritis. Stomach and bowel: No small bowel obstruction is evident. Fluid in nondilated small bowel, nonspecific. The rectum is distended with a large amount of fecal material. The colon is distended with gas, fluid, and fecal material. Partial colonic resection. Mild colonic thickening just distal to the ileocolic anastomosis. This segment is incompletely distended. Appendix: No evidence of appendicitis. Intraperitoneal space: No free air. Vasculature: Arterial calcifications. Lymph nodes: No acute findings. Urinary bladder: No acute findings. Reproductive: No acute findings. Bones/joints: Endplate deformities in the spine appear chronic. Soft tissues: Anterior abdominal wall laxity. IMPRESSION: 1. The rectum is distended with a large amount of fecal material. Correlate clinically for fecal impaction. 2. Mild colonic thickening distal to ileocolic anastomosis. This may be due to incomplete distension. Colitis or neoplasm not excluded. Clinical correlation advised. 3. Additional findings as above. Dictated and Authenticated by: Maria L Thorne MD. Orderin Dheeraj Mcfarland MD
[2024-07-14] MEDS: Potassium Chloride 20 MEQ TABCR PO (05:35)
[2024-07-14] MEDS: Mineral Oil-Enema 133 ML BTL PR (05:35)
--- NOTE | 2024-07-14 07:04 | NUR.NOTE ---
Nursing Note:Pt held mineral oil ennema for 15-20 minutes before going to the bathroom, pt had minimal relief, ADAM
--- NOTE | 2024-07-14 07:21 | W.EDPROG ---
Date of service: 07/14/24 Time of Service: 07:21 Medical Decision Making Care assumed from off going provider. Patient is a 78-year-old female with past medical history of Crohn's disease that presented with constipation. Has a large stool burden on CT examination with no signs of obstruction perforation or stercolitis . Medications have been given for symptom relief and the disposition at time of signout is pending the patient having a bowl movement. Patient had relief of her symptoms in the emergency department. She has a soft abdomen and is tolerating crackers. Will discharge home with MiraLAX [id number] and recommendation to follow-up closely with PCP. Return precautions advised. Quality:SDOH Health Related Social Needs: No Data to Display Discharge Plan Disposition Patient Disposition: Home Discharge Details Clinical Impression: Constipation Primary Care Provider: Bhargavi Lombardo ED Provider: Collette Lion Home Meds and New Rx's Prescriptions: No Action fluocinonide 0.05 % cream 1 applic topical BID loperamide [Imodium A-D] 2 mg capsule 2 mg PO Q6H PRN cyanocobalamin (vitamin B-12) 1,000 mcg/mL solution 1,000 mcg IJ QMONTH Qty: 1 Entyvio 300 mg recon soln 300 mg IV Q6W Systane Complete PF 0.6 % drops 1 drp ophthalmic (eye) QID ergocalciferol (vitamin D2) [Vitamin D2] 1,250 mcg (50,000 unit) capsule 1,250 mcg PO .2xweek Evenity 210mg/2.34mL ( 105mg/1.17mLx2) syringe 210 mg subcut QMONTH (DME) BD Integra Syringe 3 mL 25 gauge x 1 syringe See Rx Instructions .ROUTE .MEDSUPPLY Qty: 50 Patient Comments: USE 1 SYRINGE EVERY 30 DAYS Rx Instructions: As directed multivitamin [One Daily] 1 EACH tablet 1 ea PO DAILY acetaminophen [Tylenol] 325 MG tablet 325 mg PO PRN vitamin B complex [B-Complex] 1 EACH tablet 1 ea PO DAILY fluticasone propionate [Flonase Allergy Relief] 50 mcg/actuation spray,suspension 2 spray intranasal DAILY Qty: 48 4RF Rx Instructions: administer into each nostril ferrous gluconate 324 mg (37.5 mg iron) tablet 324 mg PO BID Qty: 180 3RF amlodipine 10 mg tablet 10 mg PO DAILY Qty: 90 2RF cholestyramine (with sugar) 4 gram powder 1 pwd PO DAILY Discharge Instructions Additional Instructions: Start taking MiraLAX twice daily until you are having regular soft formed stools daily You should then take only once daily Please follow-up with your primary care doctor for reevaluation of ongoing constipation
[2024-07-14] MEDS: Na Phosphate Enema-Adult 133 ML BTL PR (07:50)
[2024-07-14] MEDS: Polyethylene Glycol 3350 17 GM PACKET PO (07:51)
[2024-07-14] MEDS: Senna TAB 1 TAB PO (07:51)
[2024-07-14] MEDS: Ondansetron 4 MG/2 ML VIAL (08:40)
[2024-07-14 08:44] VITALS: BP 146/54; PULSE 73; RESP 18; O2SAT 100
[2024-07-14 09:14] VITALS: BP 127/39; PULSE 71; RESP 16; O2SAT 100
[2024-07-14 09:56] VITALS: BP 133/40; PULSE 79; RESP 16; O2SAT 100
== END 2024-07-14 09:57 | disposition home or self-care (01) ==
PROVIDERS: Student in an Organized Health Care Education/Training Program; Emergency Provider Emergency Medicine; PCP Nurse Practitioner Family
DX: R10.30 Lower abdominal pain, unspecified (principal); K59.00 Constipation, unspecified; K50.90 Crohn's disease, unspecified, without complications; Z87.891 Personal history of nicotine dependence
CPT/HCPCS: 00123; 36415; 80053; 83690; 99285; 74177; 83605; 85025; 99284; J2405; J3490

== ENCOUNTER 2024-08-13 06:15 | Day surgery (SDC) | payer MEDICARE, MEDICAID, SELFPAY ==
[2024-08-13 06:25] VITALS: BP 120/54; PULSE 66; RESP 14; TEMP 36.7; O2SAT 99
[2024-08-13] MEDS: Lactated Ringers 1,000 ML 80 ML IV (06:52)
--- NOTE | 2024-08-13 07:07 | W.ANESPRE ---
General Info Date of Service Date Performed: 08/13/24 Height: 5 ft 1 in Weight: 50.1 kg Body Mass Index (BMI): 20.8 Surgical Procedure: Operation Date: 08/13/24 07:35 Proposed Procedure Side Surgeon p Gastroscopy Virgil Tillman MD Meds Allergies and Home Medications Allergies Allergy/AdvReac Type Severity Reaction Status Date / Time latex Allergy Severe SKIN RASH; Verified 08/13/24 06:17 BLISTERS infliximab (From Remicade) Allergy Intermediate Flushing, Verified 08/13/24 06:17 puffiness in face metronidazole (From Flagyl) Allergy Intermediate RASH Verified 08/13/24 06:17 esomeprazole Allergy Unknown UPPER BODY Verified 08/13/24 06:17 RASH Sulfa (Sulfonamide Allergy Unknown Other (See Verified 08/13/24 06:17 Antibiotics) Comment) clindamycin AdvReac Severe GI UPSET Verified 08/13/24 06:17 azithromycin AdvReac Intermediate gi intol. Verified 08/13/24 06:17 diarrhea goas bloating cramps potassium clavulanate (From AdvReac Intermediate diarrhea Verified 08/13/24 06:17 Augmentin) omeprazole AdvReac Mild NAUSEA Verified 08/13/24 06:17 tymlos AdvReac Intermediate Skin Rash Uncoded 08/13/24 06:17 Home Medication ?Medication ?Instructions ?Recorded acetaminophen 325 mg tablet 325 mg PO PRN 12/10/12 (Tylenol) multivitamin (One Daily tablet) 1 ea PO DAILY 12/10/12 vitamin B complex (B-Complex 1 ea PO DAILY 12/10/12 tablet) cyanocobalamin (vitamin B-12) 1,000 mcg IJ QMONTH #1 vial 06/27/22 1,000 mcg/mL injection solution loperamide 2 mg capsule (Imodium 2 mg PO Q6H PRN 06/27/22 A-D) propylene glycol (PF) 0.6 % eye 1 drp ophthalmic (eye) QID 01/18/23 drops (Systane Complete PF) fluocinonide 0.05 % topical cream 1 applic topical BID 05/22/23 fluticasone propionate 50 2 spray intranasal DAILY #48 grams 05/23/23 mcg/actuation nasal spray,suspension (Flonase Allergy Relief) ferrous gluconate 324 mg (37.5 mg 324 mg PO BID #180 tabs 04/09/24 iron) tablet ergocalciferol (vitamin D2) 1,250 1,250 mcg PO .2xweek 09/27/23 mcg (50,000 unit) capsule (Vitamin D2) vedolizumab 300 mg intravenous 300 mg IV Q6W 09/27/23 solution (Entyvio) syringe with needle, safety 3 mL #50 ea 03/30/24 25 gauge x 1 (BD Integra Syringe) cholestyramine (with sugar) 4 gram 1 pwd PO DAILY 06/17/24 oral powder amlodipine 10 mg tablet 10 mg PO DAILY #90 tabs 07/09/24 teriparatide 20 mcg/dose (750 20 mcg subcut DAILY 08/11/24 mcg/3 mL) subcutaneous pen injector Current Visit Medications: Current Medications Generic Name Dose Route Start Last Admin Trade Name Freq PRN Reason Stop Dose Admin Ringer's Solution 1,000 mls @ 80 mls/hr 08/13/24 06:00 08/13/24 06:52 IV 08/13/24 23:59 80 mls/hr INFUSION [place] Administration IV Miscellaneous Supplies 1 each 08/13/24 06:00 Iv Access IV 08/13/24 23:59 DIRECTED [place] Sodium Chloride 0 ml 08/13/24 06:00 Normal Saline Flush 10 Ml Syr IV 08/13/24 23:59 PRN PRN Sodium Chloride 0 ml 08/13/24 06:00 Normal Saline 10 Ml Vial IJ 08/13/24 23:59 DIRECTED PRN Sterile Water 0 ml 08/13/24 06:00 Water,Injection,Sterile 10 Ml Vial IJ 08/13/24 23:59 DIRECTED PRN PFSH Active Problems Active Problems: Problem Status Onset Code Constipation Acute K59.00 Mitral valve regurgitation Chronic I34.0 Anxiety Chronic F41.9 Crohn's disease Chronic K50.90 Hypertension Chronic I10 Osteoporosis Chronic M81.0 Iron deficiency anemia Chronic D50.9 Psoriasis Chronic L40.9 Multinodular thyroid Chronic E04.2 GERD (gastroesophageal reflux disease) Chronic K21.9 Vitamin D deficiency Chronic E55.9 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 Lysis of adhesions 2009. Ileocolic resection 2011, repeated 2020 History of bilateral tubal ligation S/P tonsillectomy and adenoidectomy Tobacco Smoking/Tobacco Use Status: Former Tobacco Use Passive smoking exposure: No Second hand exposure: Yes Alcohol Alcohol Intake: current Alcohol intake frequency: holidays/special occasions only Alcohol type: beer Substance Use Substance use: Never Substance use type: does not use Counseling provided: none Vital Signs and Lab Results Vital Signs Most Recent Vital Signs in EMR: Most Recent Vital Signs Temp Pulse Resp BP Pulse Ox 36.7 C 66 14 120/54 L 99 08/13/24 06:25 08/13/24 06:25 08/13/24 06:25 08/13/24 06:25 08/13/24 06:25 Lab Results Blood Type / Crossmatch: No Data to Display Complete Blood Count: No Data to Display Complete Metabolic Panel: No Data to Display Liver Function Panel: No Data to Display Coagulation Panel: No Data to Display Cardiac Panel: No Data to Display Arterial Blood Gas: No Data to Display Venous Blood Gas: No Data to Display Pancreas Panel: No Data to Display Thyroid Panel: No Data to Display Infectious Disease: No Data to Display Blood Cultures: No Data to Display Toxicology Panel: No Data to Display Imaging and Studies Imaging and Studies Study information below may be from another EMR and interpreted by another provider. Please see original notes in EMR for more complete details. EKG Summary: 06/17/24: Exam: Resting ECG Reason for Exam: epigastric pain Patient Location: E HR:66 bpm ECG Measurements Heart Rate 66 AXIS ID 185 P 72 QRSd 80 QRS 35 QT 435 T50 QTc 455 Conclusion Sinus rhythm, rate 66 PVC No interval abnormalities No STEMI No priors available for comparison I have reviewed and I agree with the emergency room physician's ECG interpretation. Echocardiogram Summary: 04/13/24: Conclusion Normal left ventricular wall thickness and chamber size. Ejection fraction is 60%. Wall motion is normal Normal right ventricular size and function Both atria are mildly dilated Aortic valve is sclerotic and trileaflet with mild regurgitation Mild mitral annular calcification. Moderate mitral regurgitation Estimated right ventricular systolic pressure is 30 mmHg Anesthesia Assessment and Plan Anesthesia History Personal History: No History of Anesthesia Complications Family History: No Family History of Anesthesia Complications Exercise Tolerance Exercise Tolerance: Metabolic Equivalents>4 Cardiac & Pulmonary Exam Cardiac Exam: Normal S1/S2 Heart Sounds Pulmonary Exam: Clear Bilateral Breath Sounds Implantable Cardiac Device Does patient have a Pacemaker or an ICD?: No Airway Exam Known Difficult Airway: No Mallampati Class: 1 Mouth Opening: Normal (> 3cm) Thyromental Distance: Greater than 3 cm Neck Range of Motion: Full ROM Neck Circumference: Normal Teeth Condition: Normal Dentition ASA Classification ASA Score: ASA 2 Emergency Case?: No NPO Status NPO Status: NPO Clears >2 hours, Solids >8 hours Anesthesia Plan Resuscitation Status: Full Code Anesthesia Technique: General Anesthesia Airway Planned: Natural Airway Monitors Used: Standard Monitors
[2024-08-13 07:12] VITALS: BMI 20.8
--- NOTE | 2024-08-13 07:46 | W.SURGCON ---
Date of service: 08/13/24 Time of Service: 07:46 Assessment and Plan Assessment and plan (1) Hematemesis of unknown cause: Status: Acute Assessment and plan: 79-year-old woman with bloody vomitus of unknown etiology. Seems to have resolved clinically. We discussed that the biggest risk of the procedure is the possibility of not finding anything. She understands and wants to proceed. Management of any findings will defer to [facility] and her PCP Overall plan: EGD History of Present Illness Narrative: 79-year-old woman with an episode of vomiting that had blood in the vomit. Her GI doctors at [facility] recommended an upper endoscopy because we were able to get her in sooner. History of Crohn's disease. She reports she has had many upper endoscopies. They have never found anything The one-time bleeding episode has not happened since. That was more than a month ago. [facility] All Active Problems (Updated 08/13/24 @ 07:50 by Virgil Tillman MD) Hematemesis of unknown cause (Acute) Constipation (Acute) Mitral valve regurgitation (Chronic) Moderate on 2023 echo Anxiety (Chronic) Crohn's disease (Chronic) Followed by [facility] Hypertension (Chronic) Osteoporosis (Chronic) Dexa 2022. 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 Lysis of adhesions 2009. Ileocolic resection 2011, repeated 2020 History of bilateral tubal ligation S/P tonsillectomy and adenoidectomy Family History Mother , 69 Diabetes Stroke Father , 60 Myocardial infarction Heart disease Crohn's disease Sister , 70 No problems noted. Sister Crohn's disease Sister No problems noted. Maternal Grandfather No problems noted. Paternal Grandfather Crohn's disease Maternal Grandmother Liver disease Paternal Grandmother No problems noted. Daughter No problems noted. Daughter No problems noted. Daughter Down syndrome Collagenous colitis Social History Smoking/Tobacco Use Status: Former Tobacco Use tobacco type: cigarettes Quit Date: 05/20/79 Tobacco: How many years used: 15 Second Hand Exposure: Yes Smoking risk assessment performed?: Yes Alcohol Intake: current Alcohol Intake frequency: holidays/special occasions only Alcohol type: beer Drug use: Never Substance use type: does not use Counseling provided: none Adopted: No Caregiver/Support person: No Household members: children Housing: house Number of Children: 3 number of grandchildren: 7 Communication Needs: Hard of Hearing and Corrective Lenses current occupation: retired Pets and animals: No Sexually active: No Do you think of yourself as: straight/heterosexual Current gender identity: female What is your relationship status?: How often do you talk on the phone with friends or family?: twice per week How often do you get together with friends or relatives?: twice per week Do you belong to any clubs or organized social groups?: no Panel score (0-1 are the most socially isolated patients): 1 What type of physical activity do you participate in: walking Duration: 15-30 minutes/day Frequency: 3-4 times per week Oma/Adventism: Non jewish Special oma needs: No Seatbelt use: always Drive intox or ride w/intox commercial front load driver: No Firearms in home: No Do you feel safe at home: Yes Do you feel safe in your relationship?: Yes Victim of physical abuse: No Victim of emotional abuse: No Victim of sexual abuse: No Would you like helpful sources: No Exam Narrative Exam Narrative: Gen: Non-toxic, comfortable and interactive Neuro: Alert and oriented x3 Psych: Good mood and affect. Good insight and understanding into condition. Chest: Non-labored breathing, no wheezing, no visible shortness of breath. Heart: Regular Results Last Vital Signs Temp 98.1 F 08/13/24 06:25 Pulse 66 08/13/24 06:25 Resp 14 08/13/24 06:25 BP 120/54 L 08/13/24 06:25 Pulse Ox 99 08/13/24 06:25
--- NOTE | 2024-08-13 08:05 | STOM_PTH ---
PATIENT: Toshia Arreola LOC: [facility] U#:[id number] AGE/SX: 79/F ROOM: RE08/13/[address]: Virgil Tillman : 1945 BED: DIS: 08/13/2024 SPEC #: [id number] RECD: 08/13/24 12:26 STATUS: [facility] #: [id number] JELANI: 08/13/24 08:[address]: Virgil Tillman DEPT: Surgical Specimen RECD BY: Tala Coyle ENTERED: 08/13/24 12:27 SP TYPE: STOMACH OTHR DR: Bhargavi Lombardo, MCAT TUTOR Tissues: 1 - STOMACH BIOPSY Procedures: GROSS AND MICRO LEVEL 4 Comments: [id number]
[2024-08-13 08:16] VITALS: BP 98/75; PULSE 61; RESP 14; TEMP 36.5; O2SAT 99
--- NOTE | 2024-08-13 08:18 | ENDO_ITS ---
Date of service: 08/13/24 Time of Service: 08:18 Endoscopy Report PROCEDURE DESCRIPTION: PROCEDURES PERFORMED: 1. EGD with biopsies PREOPERATIVE DIAGNOSIS: Hematemesis POSTOPERATIVE DIAGNOSIS: Mild gastritis SURGEON: Kavita Tillman MD INDICATION FOR PROCEDURE: 79-year-old woman has a history of Crohn's disease. She had an isolated episode of blood in vomit. It was self?limited. FINDINGS: D2/D3 = normal D1/bulb = normal - no ulcers or inflammation Pylorus = normal Antrum = mildly inflamed/irritated appearance could be consistent with mild gastritis. Cold forceps biopsies were taken to rule out H. pylori. No ulcers. Body = grossly normal. Diffusely, the generalized stomach mucosa seems pretty friable and bleeds easily with any manipulation from the endoscope. It does not have a visual appearance of gastritis and there are no ulcers anywhere. Fundus = normal, no polyps Cardia = normal Hiatus = no hiatal hernia Distal esophagus = no inflammation, no esophagitis, no Lam's, no stricture. Mid esophagus = normal. No varices. Proximal esophagus/hypopharynx/vocal cords = normal SURVEILLANCE-INTERVAL/FOLLOW-UP: Follow-up with PCP and/your GI doctors. I do not see any reason to recommend a repeat endoscopy. Specimens: Yes EBL: Minimal COMPLICATIONS: None Procedure in detail: The patient gave written consent and was in agreement with the indications, the potential risks as well as the benefits of the procedure. The patient was taken to the endoscopy suite and laid on their left side. Anesthesia was given which was tolerated well. We performed a timeout and we are in agreement I started the procedure. A well-lubricated endoscope was gently and carefully advanced down the esophagus, into the stomach the scope was and through the pylorus into the duodenum. The scope was then slowly withdrawn with the above-noted findings/ interventions. The patient tolerated the procedure well and was taken to day surgery in stable condition.
--- NOTE | 2024-08-13 08:21 | W.PM.DSUDISC ---
Date of service: 08/13/24 Discharge Plan Disposition Patient Disposition: Home Condition: Good Discharge Details Attending Provider: Virgil Tillman Primary Care Provider: Bhargavi Lombardo Home Meds and New Rx's Prescriptions: No Action fluocinonide 0.05 % cream 1 applic topical BID loperamide [Imodium A-D] 2 mg capsule 2 mg PO Q6H PRN cyanocobalamin (vitamin B-12) 1,000 mcg/mL solution 1,000 mcg IJ QMONTH Qty: 1 Entyvio 300 mg recon soln 300 mg IV Q6W Systane Complete PF 0.6 % drops 1 drp ophthalmic (eye) QID ergocalciferol (vitamin D2) [Vitamin D2] 1,250 mcg (50,000 unit) capsule 1,250 mcg PO .2xweek (DME) BD Integra Syringe 3 mL 25 gauge x 1 syringe See Rx Instructions .ROUTE .MEDSUPPLY Qty: 50 Patient Comments: USE 1 SYRINGE EVERY 30 DAYS Rx Instructions: As directed multivitamin [One Daily] 1 EACH tablet 1 ea PO DAILY acetaminophen [Tylenol] 325 MG tablet 325 mg PO PRN vitamin B complex [B-Complex] 1 EACH tablet 1 ea PO DAILY fluticasone propionate [Flonase Allergy Relief] 50 mcg/actuation spray,suspension 2 spray intranasal DAILY Qty: 48 4RF Rx Instructions: administer into each nostril ferrous gluconate 324 mg (37.5 mg iron) tablet 324 mg PO BID Qty: 180 3RF amlodipine 10 mg tablet 10 mg PO DAILY Qty: 90 2RF teriparatide 20 mcg/dose (750 mcg/3 mL) pen injector 20 mcg subcut DAILY cholestyramine (with sugar) 4 gram powder 1 pwd PO DAILY Discharge Instructions Additional Instructions: FINDINGS: No significant findings. Routine biopsies were taken of your stomach lining to rule out H. pylori. This is not suspected but could be possibly present. Overall, there is nothing found to explain bleeding that you would have seen in vomiting. As long as the symptoms do not come back, I do not think it something you need to worry about. Activity:: Activity as Tolerated Shower/Bathe:: 24 hours Diet:: As Tolerated DS: Diagnosis Discharge Diagnosis (1) Hematemesis of unknown cause: Status: Acute Asessment and Plan: No findings in your stomach to explain bleeding and vomit. I would not worry about it as long as the problem has gone away. Follow-up with your PCP/GI doctors.
--- NOTE | 2024-08-13 08:25 | W.ANESPOSTOP ---
Postoperative Evaluation Date, Time and Location Date Performed: 08/13/24 Time Performed: 08:24 Patient Location: Day Surgery Unit Vital Signs Most Recent Imported Vital Signs: Most Recent Vital Signs Temp Pulse Resp BP Pulse Ox 36.5 C 61 14 98/75 L 99 08/13/24 08:16 08/13/24 08:16 08/13/24 08:16 08/13/24 08:16 08/13/24 08:16 Pain Score Most Recent Pain Score: Most Recent Pain Score Pain Level 0 08/13/24 08:16 Assessment Mental Status: Awake (Alert & Oriented to Patient Baseline) Airway and Respiratory Function: Patent airway with normal (patient baseline) respiratory exam Cardiovascular Function: Hemodynamically Stable Hydration Status: Adequately Hydrated Nausea & Vomiting: No Nausea or Vomiting Pain: Pt. Denies Any Pain Peripheral Nerve Block: Patient did not receive a nerve block
[2024-08-13 08:40] VITALS: BP 155/65; PULSE 63; RESP 14; TEMP 36.6; O2SAT 96
== END 2024-08-13 08:51 | disposition home or self-care (01) ==
PROVIDERS: PCP Nurse Practitioner Family; Visit Provider Student in an Organized Health Care Education/Training Program
PROC: 0DJ68ZZ Inspection of Stomach, Via Natural or Artificial Opening Endoscopic (ICD-10-PCS; CPT 43235; principal; 2024-08-13 07:30)
DX: K92.0 Hematemesis (principal); K29.71 Gastritis, unspecified, with bleeding; Z87.19 Personal history of other diseases of the digestive system
CPT/HCPCS: 43239; 88305; J2003; J2704